=== PATIENT | female | born 1960 ===

== ENCOUNTER 2017-02-15 22:10 | Inpatient (IN) | payer MEDICAID, OTHER ==
[2017-02-15] MEDS ORDERED: Sodium Chloride 0.9% 1,000 ML IV ONE (22:53)
--- NOTE | 2017-02-15 22:53 | C.PDOC ---
History Of Present Illness Patient presents to the ER with a complaint of high blood sugar consistently over 500. Patient was brought in by family and is noncompliant with medication. Denies fever or chills. Time Seen by Provider: 02/15/17 22:53 Chief Complaint (Nursing): High Blood Sugar History Per: Patient History/Exam Limitations: no limitations Onset/Duration Of Symptoms: Hrs Current Symptoms Are (Timing): Still Present Severity: Moderate Pain Scale Rating Of: 4 Current Diabetic Medications: Insulin Causative (Exacerbating) Factor(s): Other (Not known) Associated Infectious Symptoms: denies: Other (Fever, Chills) Treatment Prior To Provider Evaluation: None Recent travel outside of the [place]: No Additional History Per: Family Past Medical History Reviewed: Historical Data, Nursing Documentation, Vital Signs Vital Signs: Last Vital Signs Temp 97.8 F 02/16/17 02:37 Pulse 73 02/16/17 02:37 Resp 20 02/16/17 02:37 BP 177/99 H 02/16/17 02:37 Pulse Ox 99 02/16/17 03:27 - Medical History PMH: HTN, Hypercholesterolemia Surgical History: No Surg Hx Family History: States: No Known Family Hx - Social History Hx Alcohol Use: No Hx Substance Use: No - Immunization History Hx Tetanus Toxoid Vaccination: No Hx Influenza Vaccination: No Hx Pneumococcal Vaccination: No Review Of Systems Constitutional: Negative for: Fever, Chills Eyes: Negative for: Redness ENT: Negative for: Throat Pain Cardiovascular: Negative for: Chest Pain, Palpitations Respiratory: Negative for: Shortness of Breath Gastrointestinal: Negative for: Nausea, Vomiting Genitourinary: Negative for: Dysuria Musculoskeletal: Positive for: Leg Pain Skin: Positive for: Lesions (ulcers left foot). Negative for: Rash Neurological: Negative for: Weakness Psych: Negative for: Anxiety Physical Exam - Physical Exam Appears: Well, Non-toxic Skin: Warm, Dry Head: Normacephalic Eye(s): bilateral: Normal Inspection Oral Mucosa: Moist Neck: Supple Chest: Symmetrical, No Tenderness Cardiovascular: Rhythm Regular, No Murmur Respiratory: No Rales, No Rhonchi, No Wheezing Gastrointestinal/Abdominal: Soft, No Tenderness Back: No CVA Tenderness Extremity: No Tenderness, Other (2x3cm ulcer on plantar area w/ exudates. Abcess on ventral aspect of 4th toe, possible purulent material.) Extremity: Bilateral: No Pedal Edema Neurological/Psych: Oriented x3, Normal Speech, Normal Cognition, Other ( Decreased sensation to feet bilaterally) Gait: With Assistance ED Course And Treatment - Laboratory Results Result Diagrams: 02/15/17 23:30 02/15/17 23:30 O2 Sat by Pulse Oximetry: 99 (Room air) - CT Scan/US CT of left lower extremity Other Rad Studies (CT/US): Read By Radiologist, Radiology Report Reviewed CT/US Interpretation: IMPRESSION: 1. There has been indentation of the left fifth digit at the proximal aspect of the left fifth metatarsal. 2. There are chronic degenerative changes and ulceration involving the distal aspect of the left first. metatarsal. The possibility of chronic osteomyelitis here cannot be excluded. 3. No evidence for osteomyelitis or substantial skin ulceration involving the left fourth digit asclinically questioned. 4. No acute fracture or subluxation identified in the visualized left foot. Progress Note: Blood work and urinalysis ordered. IV fluids administered. Disposition Discussed With DrElmo: Ernesto Hi Comment: accepted the pt on his service and took over the care at 3:32 AM Doctor Will See Patient In The: ED Counseled Patient/Family Regarding: Studies Performed, Diagnosis - Disposition Disposition: HOSPITALIZED Disposition Time: 22:53 Condition: FAIR - POA Present On Arrival: Poor Glycemic Control, Pressure Ulcer - Clinical Impression Clinical Impression: Diabetic complication, Hyperglycemia, Osteomyelitis - Scribe Statement The provider has reviewed the documentation as recorded by the Scribe Keegan Morris All medical record entries made by the Scribe were at my direction and personally dictated by me. I have reviewed the chart and agree that the record accurately reflects my personal performance of the history, physical exam, medical decision making, and the department course for this patient. I have also personally directed, reviewed, and agree with the discharge instructions and disposition. Decision To Admit - Pt Status Changed To: Hospital Disposition Of: Inpatient - Admit Certification Admit to Inpatient:: After my assessment, the patient will require hospitalization for at least two midnights. This is because of the severity of symptoms shown, intensity of services needed, and/or the medical risk in this patient being treated as an outpatient. - InPatient: Physician Admission Certification: I certify that this patient requires 2 or more midnights of care for the following reason:: After my assessment, the patient will require hospitalization for at least two midnights. This is because of the severity of symptoms shown, intensity of services needed, and/or the medical risk in this patient being treated as an outpatient. - . Bed Request Type: Regular Admitting Physician: Ernesto Hi Patient Diagnosis: Diabetic complication, Hyperglycemia, Osteomyelitis
[2017-02-15] MEDS ORDERED: Sodium Chloride 0.9% 1,000 ML ONE (23:00)
[2017-02-15 23:33] LABS: BASO # 0.1 K/uL (0.0-0.2); BASO % 1.3 % (0.0-2.0); EOS # 0.1 K/uL (0.0-0.7); EOS % 1.2 % (0.0-4.0); HEMATOCRIT 40.5 % (34.0-47.0); LYMPH # 2.2 K/uL (1.0-4.3); LYMPH % 28.8 % (20.0-40.0); MEAN CELL VOLUME 87.7 fL (81.0-99.0); MEAN CORPUSCULAR HEMOGLOBIN 29.5 pg (27.0-31.0); MEAN CORPUSCULAR HGB CONC 33.7 g/dL (33.0-37.0); MEAN PLATELET VOLUME 9.7 fL (7.2-11.7); MONO # 0.5 K/uL (0.0-0.8); MONO % 7.2 % (0.0-10.0); NRBC % 0.1 % (0.0-2.0); RED CELL DISTRIBUTION WIDTH 12.6 % (11.5-14.5); WHITE BLOOD COUNT 7.6 K/uL (4.8-10.8)
[2017-02-15 23:41] LABS: CHLORIDE 92 mmol/L (98-107)
[2017-02-15 23:42] LABS: POTASSIUM 5.8 mmol/L (3.6-5.2); SODIUM 127 mmol/L (132-148)
[2017-02-15 23:44] LABS: AST/SGOT 52 U/L (14-36); BILIRUBIN,TOTAL 1.7 mg/dL (0.2-1.3); BLOOD UREA NITROGEN 29 mg/dL (7-17); CARBON DIOXIDE 26 mmol/L (22-30); GFR AFRICAN-AMERICAN 44; TOTAL PROTEIN 8.4 g/dL (6.3-8.3)
[2017-02-15 23:45] LABS: ALKALINE PHOSPHATASE 109 U/L (38-126); ALT/SGPT 11 U/L (9-52)
[2017-02-15 23:46] LABS: GLUCOSE,RANDOM 506 mg/dL (65-105)
[2017-02-16 00:01] LABS: VENOUS BLOOD GAS BASE EXCESS 3.9 mmol/L (0.0-2.0); VENOUS BLOOD GAS PCO2 58 mmHg (40-60); VENOUS BLOOD PH 7.34 (7.32-7.43)
[2017-02-16] MEDS ORDERED: Sodium Chloride 0.9% 1,000 ML IV ONE (00:03)
[2017-02-16] MEDS ORDERED: (Novolin R) Insulin Human Regular 100 units/ml vial IV ONE (00:58)
[2017-02-16] MEDS ORDERED: (Novolin R) Insulin Human Regular 100 units/ml vial ONE ×2 (01:07→07:44)
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
[2017-02-16 05:32] LABS: BASO # 0.1 K/uL (0.0-0.2); BASO % 0.7 % (0.0-2.0); EOS # 0.1 K/uL (0.0-0.7); EOS % 0.9 % (0.0-4.0); HEMATOCRIT 35.5 % (34.0-47.0); LYMPH # 2.4 K/uL (1.0-4.3); LYMPH % 30.9 % (20.0-40.0); MEAN CELL VOLUME 86.4 fL (81.0-99.0); MEAN CORPUSCULAR HEMOGLOBIN 29.1 pg (27.0-31.0); MEAN CORPUSCULAR HGB CONC 33.7 g/dL (33.0-37.0); MEAN PLATELET VOLUME 9.1 fL (7.2-11.7); MONO # 0.5 K/uL (0.0-0.8); MONO % 5.9 % (0.0-10.0); RED CELL DISTRIBUTION WIDTH 12.8 % (11.5-14.5); WHITE BLOOD COUNT 7.8 K/uL (4.8-10.8)
[2017-02-16 05:44] LABS: CHLORIDE 99 mmol/L (98-107); POTASSIUM 3.7 mmol/L (3.6-5.2); SODIUM 131 mmol/L (132-148)
[2017-02-16 05:46] LABS: BILIRUBIN,TOTAL 0.2 mg/dL (0.2-1.3); CARBON DIOXIDE 23 mmol/L (22-30); GFR AFRICAN-AMERICAN 52
[2017-02-16 05:47] LABS: ALB/GLOB RATIO 0.9 (1.0-2.1); ALKALINE PHOSPHATASE 106 U/L (38-126); ALT/SGPT 26 U/L (9-52); AST/SGOT 18 U/L (14-36); BLOOD UREA NITROGEN 22 mg/dL (7-17); CALCIUM 8.3 mg/dl (8.6-10.4); GLUCOSE,RANDOM 296 mg/dL (65-105); PHOSPHOROUS 3.6 mg/dL (2.5-4.5); TOTAL PROTEIN 6.7 g/dL (6.3-8.3)
[2017-02-16 05:48] LABS: MAGNESIUM 1.6 mg/dL (1.6-2.3)
[2017-02-16 05:58] LABS: CHOLESTEROL > 325 mg/dL (0-199)
[2017-02-16 06:07] LABS: T4 7.32 ug/dL (5.5-11.0)
[2017-02-16 06:20] LABS: THYROID STIMULATING HORMONE 1.69 mIU/L (0.46-4.68)
[2017-02-16] MEDS ORDERED: Enalaprilat 2.5 MG/2 ML IV ONE (06:29)
[2017-02-16] MEDS: Piperacill/Tazo 2.25gm in Dex 2.25 GM/50 ML BAG IVPB SCH ×4 (06:29→23:03)
[2017-02-16 07:28] LABS: INR 0.9
[2017-02-16] MEDS ORDERED: (Novolin R) Insulin Human Regular 100 units/ml vial SC SCH (07:30)
[2017-02-16] MEDS: Sodium Chloride 0.9% 1,000 ML IV SCH ×2 (07:46→21:05)
--- NOTE | 2017-02-16 08:24 | CT ---
PROCEDURE: CT HEAD WITHOUT CONTRAST. HISTORY: headache, dizziness, elevated bp COMPARISON: None available. TECHNIQUE: Axial computed tomography images were obtained through the head/brain without intravenous contrast. Radiation dose: Total exam DLP = 902.13 mGy-cm. This CT exam was performed using one or more of the following dose reduction techniques: Automated exposure control, adjustment of the mA and/or kV according to patient size, and/or use of iterative reconstruction technique. FINDINGS: HEMORRHAGE: No intracranial hemorrhage. BRAIN: No mass effect or edema. No atrophy or chronic microvascular ischemic changes. VENTRICLES: Unremarkable. No hydrocephalus. CALVARIUM: Unremarkable. PARANASAL SINUSES: Unremarkable as visualized. No significant inflammatory changes. MASTOID AIR CELLS: Unremarkable as visualized. No inflammatory changes. OTHER FINDINGS: None. IMPRESSION: No evidence of acute intracranial hemorrhage intracranial collection mass effect or midline shift. Preliminary report was submitted by [facility].
[2017-02-16] MEDS ORDERED: (Lantus) Insulin Glargine, Recombinant SC ONE (10:52)
[2017-02-16] MEDS: Pantoprazole 40 mg EC Tab PO SCH (11:23)
[2017-02-16] MEDS: (Novolin R) Insulin Human Regular 100 units/ml vial SC SCH ×3 (13:48→22:00)
--- NOTE | 2017-02-16 13:56 | US ---
PROCEDURE: Ultrasound of the Kidneys HISTORY: HTN, CR 1.5 COMPARISON: None available. TECHNIQUE: Sonogram of the kidneys. FINDINGS: RIGHT KIDNEY: Measures: 5 x 11.5 cm. Normal in size, contour and echogenicity. No stone, solid mass lesion or hydronephrosis visualized. LEFT KIDNEY: Measures: 4.7 x 10.9 cm. Normal in size, contour and echogenicity. No stone, solid mass lesion or hydronephrosis visualized. OTHER FINDINGS: None. IMPRESSION: No significant or acute findings to account for/ related to the clinical presentation.
--- NOTE | 2017-02-16 13:59 | CT ---
PROCEDURE: CT of the left foot without contrast HISTORY: diabetic, foot ulcer, att 4th digit COMPARISON: No prior similar study available for comparison. TECHNIQUE: Axial and reformatted coronal and sagittal CT images of the left foot were obtained without IV contrast administration. 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 There is cortical defect at the medial aspect of the distal 1st metatarsal bone. There are also adjacent periosteal thickening and bone formation suggestive of chronic process. The possibility of acute on chronic osteomyelitis is not totally excluded especially at the distal medial aspect of the 1st metatarsal bone and proximal phalanx. There is plantar ulcer at the distal medial left foot adjacent to the distal 1st metatarsal bone and 1st metatarsal-phalangeal joint. There is also adjacent subcutaneous density and edema. IMPRESSION: Cortical irregularity and periosteal thickening seen at the distal 1st metatarsal bone likely represent chronic osteomyelitis. The possibility of acute on chronic osteomyelitis cannot be totally excluded. Otherwise no evidence of acute osteomyelitis in the left foot. Skin ulceration and subcutaneous density and edema seen at the medial aspect of the distal left foot adjacent to the distal 1st metatarsal bone and 1st toe. Preliminary report was submitted by [facility] P
--- NOTE | 2017-02-16 15:23 | CP.PCM.CON ---
History of Present Illness - History of Present Illness History of Present Illness: Reason for referral: chest pain HPI: 56 F with PMH of HTN, DM, HLD, Hypothyroidism presents to [facility] ED for complaint of elevated glucose, elevated bp and L foot ulcer. Patient stated that she moved to [facility] from [place] 2 months ago. Since then , she has not seen a physician or has taken any medications because she ran out. Patient tried taking daughter's Metformin for glucose control but it has not work. SHe reports that she used to take insulin but no other oral DM medication. Patient states that pain in her L foot has gotten progressively worse over same time frame. She has had multiple surgeries on her L foot due to uncontrolled diabetes and ulcers. She describes pain as 7/10 in severity. She describes the pain as intermittent and throbbing located on plantar surface of left foot without radiation. She denies any exacerbating or alleviating factors. Admits to headache, dizziness/lightheadedness, nausea, cp, weakness, fatigue, weight gain, constipation, melena, numbness/tingling in feet. Denies fever/chills, sob, palpitations, abd pain, vomiting, diarrhea, hematochezia, hematemesis, urinary symptoms, incontinence. Pt described chest pain as midsternal, non-exertional and non -radiating. Review of Systems - Cardiovascular Cardiovascular: Chest Pain - Respiratory Respiratory: absent: Dyspnea on Exertion - Gastrointestinal Gastrointestinal: Abdominal Pain Past Patient History - Past Medical History & Family History Past Medical History?: Yes - Past Social History Smoking Status: Former Smoker - CARDIAC Hx Hypercholesterolemia: Yes Hx Hypertension: Yes - ENDOCRINE/METABOLIC Hx Diabetes Mellitus Type 2: Yes - MUSCULOSKELETAL/RHEUMATOLOGICAL Hx Falls: No - PSYCHIATRIC Hx Substance Use: No - ANESTHESIA Hx Anesthesia: Yes Hx Anesthesia Reactions: No Meds Allergies/Adverse Reactions: Allergies Allergy/AdvReac Type Severity Reaction Status Date / Time No Known Allergies Allergy Unverified 02/15/17 22:41 - Medications Medications: Current Medications Acetaminophen (Tylenol 325mg Tab) 650 mg PO Q6 PRN PRN Reason: Fever >100.4 F Aspirin (Ecotrin) 81 mg PO DAILY [facility] Enalapril Maleate (Vasotec) 10 mg PO DAILY [facility] Last Admin: 02/16/17 11:22 Dose: 10 mg Fenofibrate (Tricor) 48 mg PO QPM [facility] Heparin Sodium (Porcine) (Heparin) 5,000 units SC Q8 [facility] Last Admin: 02/16/17 13:48 Dose: 5,000 units Piperacillin Sod/Tazobactam Sod (Zosyn 2.25 Gm Iv Premix) 2.25 gm in 50 mls @ 100 mls/hr IVPB Q6H [facility] Last Admin: 02/16/17 13:48 Dose: 100 mls/hr Vancomycin HCl 1 gm/ Sodium (Chloride) 250 mls @ 166.7 mls/hr IVPB Q24H [facility] Last Admin: 02/16/17 05:15 Dose: 166.7 mls/hr Sodium Chloride (Sodium Chloride 0.9%) 1,000 mls @ 75 mls/hr IV .[id number] [facility] Last Admin: 02/16/17 07:46 Dose: 75 mls/hr Insulin Human Regular (Novolin R) 0 unit SC ACHS [facility] PRN Reason: Protocol Last Admin: 02/16/17 13:48 Dose: 8 unit Levothyroxine Sodium (Synthroid) 25 mcg PO DAILY@0630 [facility] Metoprolol Tartrate (Lopressor) 50 mg PO BID [facility] Ondansetron HCl (Zofran Inj) 4 mg IVP Q6 PRN PRN Reason: Nausea/Vomiting Pantoprazole Sodium (Protonix Ec Tab) 40 mg PO DAILY [facility] Last Admin: 02/16/17 11:23 Dose: 40 mg Rosuvastatin Calcium (Crestor) 10 mg PO [facility] Physical Exam - Constitutional Appears: Non-toxic - Head Exam Head Exam: NORMAL INSPECTION - Eye Exam Eye Exam: absent: Scleral icterus - ENT Exam ENT Exam: Mucous Membranes Moist - Neck Exam Neck exam: Positive for: Full Rom. Negative for: Lymphadenopathy - Respiratory Exam Respiratory Exam: Decreased Breath Sounds, NORMAL BREATHING PATTERN - Cardiovascular Exam Cardiovascular Exam: REGULAR RHYTHM - GI/Abdominal Exam GI & Abdominal Exam: Soft. absent: Tenderness - Extremities Exam Extremities exam: Negative for: pedal edema Results - Vital Signs Recent Vital Signs: Last Vital Signs Temp 98.3 F 02/16/17 07:26 Pulse 99 H 02/16/17 07:26 Resp 18 02/16/17 09:00 BP 151/84 H 02/16/17 11:22 Pulse Ox 97 02/16/17 07:26 - Labs Result Diagrams: 02/19/17 06:25 02/19/17 06:25 Labs: Laboratory Results - last 24 hr 02/16/17 02/16/17 02/16/17 05:27 05:27 05:27 WBC 7.8 RBC 4.11 Hgb 12.0 Hct 35.5 MCV 86.4 MCH 29.1 MCHC 33.7 RDW 12.8 Plt Count 174 MPV 9.1 Neut % (Auto) 61.6 Lymph % (Auto) 30.9 [place] % (Auto) 5.9 Eos % (Auto) 0.9 Baso % (Auto) 0.7 Neut # 4.8 Lymph # 2.4 [place] # 0.5 Eos # 0.1 Baso # 0.1 PT INR APTT Sodium 131 L Potassium 3.7 Chloride 99 Carbon Dioxide 23 Anion Gap 13 BUN 22 H Creatinine 1.3 H Est GFR ( Amer) 52 Est GFR (Non-Af Amer) 43 POC Glucose (mg/dL) Random Glucose 296 H Hemoglobin A1c 14.1 H Calcium 8.3 L Phosphorus 3.6 Magnesium 1.6 Total Bilirubin 0.2 AST 18 ALT 26 Alkaline Phosphatase 106 Total Creatine Kinase CK-MB (Mass) Troponin I, Quant Total Protein 6.7 Albumin 3.1 L D Globulin 3.6 Albumin/Globulin Ratio 0.9 L Triglycerides > 525 H Cholesterol > 325 H LDL Cholesterol Direct 171 H HDL Cholesterol 37 Thyroxine (T4) 7.32 TSH 3rd Generation 1.69 02/16/17 02/16/17 02/16/17 07:05 07:23 09:22 WBC RBC Hgb Hct MCV MCH MCHC RDW Plt Count MPV Neut % (Auto) Lymph % (Auto) [place] % (Auto) Eos % (Auto) Baso % (Auto) Neut # Lymph # [place] # Eos # Baso # PT 9.6 L INR 0.9 APTT 26 Sodium Potassium Chloride Carbon Dioxide Anion Gap BUN Creatinine Est GFR ( Amer) Est GFR (Non-Af Amer) POC Glucose (mg/dL) 291 H 321 H Random Glucose Hemoglobin A1c Calcium Phosphorus Magnesium Total Bilirubin AST ALT Alkaline Phosphatase Total Creatine Kinase CK-MB (Mass) Troponin I, Quant Total Protein Albumin Globulin Albumin/Globulin Ratio Triglycerides Cholesterol LDL Cholesterol Direct HDL Cholesterol Thyroxine (T4) TSH 3rd Generation 02/16/17 02/16/17 11:47 12:16 WBC RBC Hgb Hct MCV MCH MCHC RDW Plt Count MPV Neut % (Auto) Lymph % (Auto) [place] % (Auto) Eos % (Auto) Baso % (Auto) Neut # Lymph # [place] # Eos # Baso # PT INR APTT Sodium Potassium Chloride Carbon Dioxide Anion Gap BUN Creatinine Est GFR ( Amer) Est GFR (Non-Af Amer) POC Glucose (mg/dL) 365 H Random Glucose Hemoglobin A1c Calcium Phosphorus Magnesium Total Bilirubin AST ALT Alkaline Phosphatase Total Creatine Kinase 113 CK-MB (Mass) 1.47 Troponin I, Quant 0.0120 Total Protein Albumin Globulin Albumin/Globulin Ratio Triglycerides Cholesterol LDL Cholesterol Direct HDL Cholesterol Thyroxine (T4) TSH 3rd Generation Assessment & Plan - Assessment and Plan (Free Text) Assessment: ACS Plan: Trops q6hrs x 3 ECHO If trops negative for ME, we'll schedule for Lexiscan If trops positive for ME, we'll schedule for cath.
--- NOTE | 2017-02-16 15:24 | CP.PCM.CON ---
History of Present Illness - History of Present Illness History of Present Illness: Podiatry consult note- Dr. Means 56 year old female with PMHx of HTN, DMII, hyperlipidemia, bilateral motor nerve damage, with multiple left lower extremity surgeries including partial fifth ray amputation done in [place]. Patient admitted to the hospital for elevated blood glucose and hypertension. Patient seen and evaluated at bedside in the ICU accompanied by family members. Patient denies pain to the extremity due to neuropathy. She denies n/v/f/c/sob at this time. Patient has left foot plantar ulceration submet 1 which she states has been present for several years. She has blistering with mild fluctuance present to the fourth digit as well. Patient reports multiple episodes of cellulitis/abscess to the foot which have required surgery. Past Patient History - Past Medical History & Family History Past Medical History?: Yes - Past Social History Smoking Status: Former Smoker - CARDIAC Hx Hypercholesterolemia: Yes Hx Hypertension: Yes - ENDOCRINE/METABOLIC Hx Diabetes Mellitus Type 2: Yes - MUSCULOSKELETAL/RHEUMATOLOGICAL Hx Falls: No - PSYCHIATRIC Hx Substance Use: No - ANESTHESIA Hx Anesthesia: Yes Hx Anesthesia Reactions: No Meds Allergies/Adverse Reactions: Allergies Allergy/AdvReac Type Severity Reaction Status Date / Time No Known Allergies Allergy Unverified 02/15/17 22:41 - Medications Medications: Current Medications Acetaminophen (Tylenol 325mg Tab) 650 mg PO Q6 PRN PRN Reason: Fever >100.4 F Aspirin (Ecotrin) 81 mg PO DAILY [facility] Enalapril Maleate (Vasotec) 10 mg PO DAILY [facility] Last Admin: 02/16/17 11:22 Dose: 10 mg Fenofibrate (Tricor) 48 mg PO QPM [facility] Heparin Sodium (Porcine) (Heparin) 5,000 units SC Q8 [facility] Last Admin: 02/16/17 13:48 Dose: 5,000 units Piperacillin Sod/Tazobactam Sod (Zosyn 2.25 Gm Iv Premix) 2.25 gm in 50 mls @ 100 mls/hr IVPB Q6H [facility] Last Admin: 02/16/17 13:48 Dose: 100 mls/hr Vancomycin HCl 1 gm/ Sodium (Chloride) 250 mls @ 166.7 mls/hr IVPB Q24H [facility] Last Admin: 02/16/17 05:15 Dose: 166.7 mls/hr Sodium Chloride (Sodium Chloride 0.9%) 1,000 mls @ 75 mls/hr IV .[id number] [facility] Last Admin: 02/16/17 07:46 Dose: 75 mls/hr Insulin Human Regular (Novolin R) 0 unit SC ACHS [facility] PRN Reason: Protocol Last Admin: 02/16/17 13:48 Dose: 8 unit Levothyroxine Sodium (Synthroid) 25 mcg PO DAILY@0630 [facility] Metoprolol Tartrate (Lopressor) 50 mg PO BID [facility] Ondansetron HCl (Zofran Inj) 4 mg IVP Q6 PRN PRN Reason: Nausea/Vomiting Pantoprazole Sodium (Protonix Ec Tab) 40 mg PO DAILY [facility] Last Admin: 02/16/17 11:23 Dose: 40 mg Rosuvastatin Calcium (Crestor) 10 mg PO HS [facility] Physical Exam - Constitutional Appears: Well, Non-toxic, No Acute Distress - Neurological Exam Neurological exam: Oriented x3 - Psychiatric Exam Psychiatric exam: Normal Affect, Normal Mood - Additional Findings Additional findings: DERMATOLOGIC: Left foot hyperkeratotic ulceration submet 1, no drainage, fibrous wund base, negative drainage, negative erythema, negative purulence. Left foot fourth digit with mildly fluctuant blistering dorsally, no active drainage present, mild erythema, no streaking. Surrounding skin is intact. VASCULAR: DP/PT pulses 2/4, [employer]<3 seconds, skin temperature is normal. There is localized edema to the left foot fourth digit. NEUROLOGIC: Protective sensation absent ORTHOPEDIC: Negative pain on palpation to the left lower extremity. 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 CT of left foot: Possible acute on chronic OM of the distal first metatarsal Results - Vital Signs Recent Vital Signs: Last Vital Signs Temp 98.3 F 02/16/17 07:26 Pulse 99 H 02/16/17 07:26 Resp 18 02/16/17 09:00 BP 151/84 H 02/16/17 11:22 Pulse Ox 97 02/16/17 07:26 - Labs Result Diagrams: 02/16/17 05:27 02/16/17 05:27 Labs: Laboratory Results - last 24 hr 02/16/17 02/16/17 02/16/17 05:27 05:27 05:27 WBC 7.8 RBC 4.11 Hgb 12.0 Hct 35.5 MCV 86.4 MCH 29.1 MCHC 33.7 RDW 12.8 Plt Count 174 MPV 9.1 Neut % (Auto) 61.6 Lymph % (Auto) 30.9 [place] % (Auto) 5.9 Eos % (Auto) 0.9 Baso % (Auto) 0.7 Neut # 4.8 Lymph # 2.4 [place] # 0.5 Eos # 0.1 Baso # 0.1 PT INR APTT Sodium 131 L Potassium 3.7 Chloride 99 Carbon Dioxide 23 Anion Gap 13 BUN 22 H Creatinine 1.3 H Est GFR ( Amer) 52 Est GFR (Non-Af Amer) 43 POC Glucose (mg/dL) Random Glucose 296 H Hemoglobin A1c 14.1 H Calcium 8.3 L Phosphorus 3.6 Magnesium 1.6 Total Bilirubin 0.2 AST 18 ALT 26 Alkaline Phosphatase 106 Total Creatine Kinase CK-MB (Mass) Troponin I, Quant Total Protein 6.7 Albumin 3.1 L D Globulin 3.6 Albumin/Globulin Ratio 0.9 L Triglycerides > 525 H Cholesterol > 325 H LDL Cholesterol Direct 171 H HDL Cholesterol 37 Thyroxine (T4) 7.32 TSH 3rd Generation 1.69 02/16/17 02/16/17 02/16/17 07:05 07:23 09:22 WBC RBC Hgb Hct MCV MCH MCHC RDW Plt Count MPV Neut % (Auto) Lymph % (Auto) [place] % (Auto) Eos % (Auto) Baso % (Auto) Neut # Lymph # [place] # Eos # Baso # PT 9.6 L INR 0.9 APTT 26 Sodium Potassium Chloride Carbon Dioxide Anion Gap BUN Creatinine Est GFR ( Amer) Est GFR (Non-Af Amer) POC Glucose (mg/dL) 291 H 321 H Random Glucose Hemoglobin A1c Calcium Phosphorus Magnesium Total Bilirubin AST ALT Alkaline Phosphatase Total Creatine Kinase CK-MB (Mass) Troponin I, Quant Total Protein Albumin Globulin Albumin/Globulin Ratio Triglycerides Cholesterol LDL Cholesterol Direct HDL Cholesterol Thyroxine (T4) TSH 3rd Generation 02/16/17 02/16/17 11:47 12:16 WBC RBC Hgb Hct MCV MCH MCHC RDW Plt Count MPV Neut % (Auto) Lymph % (Auto) [place] % (Auto) Eos % (Auto) Baso % (Auto) Neut # Lymph # [place] # Eos # Baso # PT INR APTT Sodium Potassium Chloride Carbon Dioxide Anion Gap BUN Creatinine Est GFR ( Amer) Est GFR (Non-Af Amer) POC Glucose (mg/dL) 365 H Random Glucose Hemoglobin A1c Calcium Phosphorus Magnesium Total Bilirubin AST ALT Alkaline Phosphatase Total Creatine Kinase 113 CK-MB (Mass) 1.47 Troponin I, Quant 0.0120 Total Protein Albumin Globulin Albumin/Globulin Ratio Triglycerides Cholesterol LDL Cholesterol Direct HDL Cholesterol Thyroxine (T4) TSH 3rd Generation Assessment & Plan - Assessment and Plan (Free Text) Assessment: 56 year old female with left foot chronic diabetic ulceration and blistering of the fourth digits Plan: Patient seen and evaluated, d/w attending Dr. Means Patients left foot dressed with betadin, DSD CT scan shows possible acute on chronic OM of the left distal first metatarsal IV abx in progress- Mari Wound culture pending Podiatry will continue to follow
--- NOTE | 2017-02-16 20:38 | CP.PCM.PN ---
<Tra Lugo - Last Filed: 02/16/17 20:35> Subjective - Date & Time of Evaluation Date of Evaluation: 02/16/17 Time of Evaluation: 08:15 - Subjective Subjective: Dr. Lugo PGY 1 Hospitalist Note The patient was seen this morning and examined at bedside. She is complaining of her stage 3 decubitus ulcer of the left foot. She states that the ulcer developed approximately 5-6 months ago. In addition, the patient has left foot plantar ulceration and blistering with mild fluctuance of the 4th digit. The patient is worried about her left foot ulcer and states that it has gotten worse since she came to [facility] 2 months ago. The patient denies pain to the extremity due to numbness from diabetic neuropathy. She states that she has had multiple infectious episodes for which have required multiple foot surgeries. Furthermore, the patient complained of chest pain when she was admitted. Now, the pain is reproducible on palpation. She also reports abdominal pain with palpation of the chest wall. She also reports that she has been having a lot of difficulty with bowel movements. She states that she has to strain a lot and experiences pain associated with straining. She reports bloating and thinks she may possibly have hemorrhoids. She reports headache, fatigue, chest pain, abdominal pain, constipation, and numbness/tingling in LEs. She denies fever/ chills, palpitations, shortness of breath, vomiting, diarrhea, hematochezia, hematemesis, urinary frequency, dysuria, and incontinence. Objective - Vital Signs/Intake and Output Vital Signs (last 24 hours): Temp Pulse Resp BP Pulse Ox 97.2 F L 96 H 18 161/78 H 100 02/16/17 20:00 02/16/17 20:00 02/16/17 20:00 02/16/17 20:00 02/16/17 20:00 Intake and Output: 02/16/17 02/17/17 18:59 06:59 Intake Total 2200 Output Total 802 Balance 1398 - Medications Medications: Current Medications Acetaminophen (Tylenol 325mg Tab) 650 mg PO Q6 PRN PRN Reason: Fever >100.4 F Aspirin (Ecotrin) 81 mg PO DAILY [facility] Enalapril Maleate (Vasotec) 10 mg PO DAILY [facility] Last Admin: 02/16/17 11:22 Dose: 10 mg Fenofibrate (Tricor) 48 mg PO QPM [facility] Last Admin: 02/16/17 18:55 Dose: 48 mg Heparin Sodium (Porcine) (Heparin) 5,000 units SC Q8 [facility] Last Admin: 02/16/17 13:48 Dose: 5,000 units Piperacillin Sod/Tazobactam Sod (Zosyn 2.25 Gm Iv Premix) 2.25 gm in 50 mls @ 100 mls/hr IVPB Q6H [facility] Last Admin: 02/16/17 18:25 Dose: 100 mls/hr Vancomycin HCl 1 gm/ Sodium (Chloride) 250 mls @ 166.7 mls/hr IVPB Q24H [facility] Last Admin: 02/16/17 05:15 Dose: 166.7 mls/hr Sodium Chloride (Sodium Chloride 0.9%) 1,000 mls @ 75 mls/hr IV .[id number] [facility] Last Admin: 02/16/17 07:46 Dose: 75 mls/hr Insulin Human Regular (Novolin R) 0 unit SC ACHS [facility] PRN Reason: Protocol Last Admin: 02/16/17 18:24 Dose: 10 unit Levothyroxine Sodium (Synthroid) 25 mcg PO DAILY@0630 [facility] Metoprolol Tartrate (Lopressor) 50 mg PO BID [facility] Last Admin: 02/16/17 18:25 Dose: 50 mg Ondansetron HCl (Zofran Inj) 4 mg IVP Q6 PRN PRN Reason: Nausea/Vomiting Pantoprazole Sodium (Protonix Ec Tab) 40 mg PO DAILY [facility] Last Admin: 02/16/17 11:23 Dose: 40 mg Rosuvastatin Calcium (Crestor) 10 mg PO HS [facility] - Labs Labs: 02/16/17 05:27 02/16/17 05:27 PT 9.6 SECONDS (9.7-12.2) L 02/16/17 07:05 INR 0.9 02/16/17 07:05 APTT 26 SECONDS (21-34) 02/16/17 07:05 - Constitutional Appears: Non-toxic, No Acute Distress - Head Exam Head Exam: ATRAUMATIC, NORMOCEPHALIC - Eye Exam Eye Exam: EOMI, Normal appearance, PERRL Pupil Exam: NORMAL ACCOMODATION - ENT Exam ENT Exam: Mucous Membranes Moist - Neck Exam Neck Exam: Normal Inspection. absent: Tenderness - Respiratory Exam Respiratory Exam: Clear to Ausculation Bilateral, NORMAL BREATHING PATTERN. absent: Rales, Rhonchi, Wheezes - Cardiovascular Exam Cardiovascular Exam: REGULAR RHYTHM, +S1, +S2 - GI/Abdominal Exam GI & Abdominal Exam: Soft, Normal Bowel Sounds. absent: Tenderness - Extremities Exam Extremities Exam: absent: Normal Inspection (nontender ulceration on left foot and missing pinky toe) - Neurological Exam Neurological Exam: Alert, Awake, CN II-XII Intact, Oriented x3 - Psychiatric Exam Psychiatric exam: Normal Affect, Normal Mood - Skin Skin Exam: Dry, Normal Color, Warm. absent: Intact (wound on left foot) Assessment and Plan - Assessment and Plan (Free Text) Plan: Chest pain Negative cardiac markers Total CK: 113 CK-MB: 1.47 Troponin I: 0.0120 Monitor EKGs for acute changes f/u repeat cardiac enzymes Continue metoprolol 50 mg po bid Continue aspirin 81 mg po daily Continue enalapril 10 mg po daily Osteomyelitis Continue IV vancomycin and zosyn Podiatry evaluated left LE, dressed with betadine, reccomended continuing vancomycin + zosyn, wound cultures pending, podiatry will monitor the patient No leukocytosis, afebrile CT LE: osteomyelitis suspected [see full report] ID consult, Dr. Groves, help appreciated Headache Blood pressure was controlled this morning CT head: negative [see full report] Diabetes mellitus type 2 Increase units of ISS as blood sugar is nearing 300s Continue accuchecks Monitor Hypertension Continue enalapril 10 mg po daily Continue metoprolol 50 mg po bid Vasotect 10 mg PO daily (home med) Monitor Hyperlipidemia Continue crestor 10 mg po hs Continue fenofibrate 48 mg po hs Hypothyroidism Continue synthroid 25 mc po daily (home med) Prophylactic measures Protonix 40 mg po daily Heparin 5000 u sc q8h Zofran 4 mg IVP q6h prn Tylenol 650 mg po q6h prn Assessment and plan discussed with attending physician. <Anne Marie Cantu V - Last Filed: 02/17/17 08:32> Objective - Vital Signs/Intake and Output Vital Signs (last 24 hours): Temp Pulse Resp BP Pulse Ox 98.3 F 84 14 126/84 100 02/17/17 04:00 02/17/17 07:40 02/17/17 07:40 02/17/17 04:37 02/17/17 07:40 Intake and Output: 02/17/17 02/17/17 06:59 18:59 Intake Total 3420 50 Output Total 1102 400 Balance 2318 -350 - Medications Medications: Current Medications Acetaminophen (Tylenol 325mg Tab) 650 mg PO Q6 PRN PRN Reason: Fever >100.4 F Last Admin: 02/17/17 01:25 Dose: 650 mg Aspirin (Ecotrin) 81 mg PO DAILY [facility] Enalapril Maleate (Vasotec) 10 mg PO DAILY [facility] Last Admin: 02/16/17 11:22 Dose: 10 mg Fenofibrate (Tricor) 48 mg PO QPM [facility] Last Admin: 02/16/17 18:55 Dose: 48 mg Gabapentin (Neurontin) 300 mg PO TID [facility] Heparin Sodium (Porcine) (Heparin) 5,000 units SC Q8 [facility] Last Admin: 02/17/17 05:31 Dose: 5,000 units Piperacillin Sod/Tazobactam Sod (Zosyn 2.25 Gm Iv Premix) 2.25 gm in 50 mls @ 100 mls/hr IVPB Q6H [facility] Last Admin: 02/17/17 05:52 Dose: 100 mls/hr Vancomycin HCl 1 gm/ Sodium (Chloride) 250 mls @ 166.7 mls/hr IVPB Q24H [facility] Last Admin: 02/17/17 05:29 Dose: 166.7 mls/hr Sodium Chloride (Sodium Chloride 0.9%) 1,000 mls @ 75 mls/hr IV .[id number] [facility] Last Admin: 02/17/17 01:14 Dose: 75 mls/hr Insulin Human Regular (Novolin R) 0 unit SC ACHS [facility] PRN Reason: Protocol Last Admin: 02/16/17 22:00 Dose: Not Given Levothyroxine Sodium (Synthroid) 25 mcg PO DAILY@0630 [facility] Last Admin: 02/17/17 05:32 Dose: 25 mcg Metoprolol Tartrate (Lopressor) 50 mg PO BID [facility] Last Admin: 02/16/17 18:25 Dose: 50 mg Ondansetron HCl (Zofran Inj) 4 mg IVP Q6 PRN PRN Reason: Nausea/Vomiting Pantoprazole Sodium (Protonix Ec Tab) 40 mg PO DAILY [facility] Last Admin: 02/16/17 11:23 Dose: 40 mg Rosuvastatin Calcium (Crestor) 10 mg PO HS [facility] Last Admin: 02/16/17 22:00 Dose: 10 mg - Labs Labs: 02/17/17 07:29 02/17/17 06:31 PT 11.2 SECONDS (9.7-12.2) 02/17/17 06:31 INR 1.0 02/17/17 06:31 APTT 32 SECONDS (21-34) D 02/17/17 06:31 Attending/Attestation - Attestation I have personally seen and examined this patient.: Yes I have fully participated in the care of the patient.: Yes I have reviewed all pertinent clinical information, including history, physical exam and plan: Yes Notes (Text): This is late computer entry for 02/16/17. Patient seen, examined and case discussed with day-time resident. Patient seen in the Emergency Room in the morning, awaiting telemetry bed. Patient reports she has not been taking her medications for her chronic conditions including diabetes, lipid disorder, and hypertension, patient has recently came from [place] about 2 months ago, and thought that since she could not get insurance and therefore could not get her medications. Patient reports prior history of diabetic foot ulcer, which she was told in [place] which was inoperable. Patient's blood pressure in the ED improved from SBP: 180 to 120s and chest pain has improved. Discussed with podiatry (Dr. Gideon Means)-->Will come see the patient. Cardiology evaluation in progress Infectious disease evaluation in progress. patient is on IV antibiotics for diabetic foot ulcer, no observed erythema nor cellulitic changes observed Assessment/Plan 1) Chest pain Negative cardiac markers Total CK: 113 CK-MB: 1.47 Troponin I: 0.0120 Cardiology (Dr. Garcia) on the case-->help appreciated Monitor EKGs for acute changes f/u repeat cardiac enzymes Continue metoprolol 50 mg po bid Continue aspirin 81 mg po daily Continue enalapril 10 mg po daily 2) Osteomyelitis Continue IV vancomycin and zosyn Podiatry evaluated left LE, dressed with betadine, reccomended continuing vancomycin + zosyn, wound cultures pending, podiatry will monitor the patient No leukocytosis, afebrile CT LE: osteomyelitis suspected [see full report] ID consult, Dr. Groves, help appreciated Podiatry, Dr. Gideon Means, help appreciated 3) Headache Blood pressure was controlled this morning CT head: negative [see full report] Improved and resolved 4) Diabetes mellitus type 2 History of noncompliance Increase units of ISS as blood sugar is nearing 300s Continue accuchecks Monitor Likely uncontrolled diabetes [employer] referral 5) Hypertension History of noncompliance Continue enalapril 10 mg po daily Continue metoprolol 50 mg po bid Monitor 6) Hyperlipidemia Continue crestor 10 mg po hs Continue fenofibrate 48 mg po hs 7) Hypothyroidism Continue synthroid 25 mc po daily (home med) 8) Prophylactic measures Protonix 40 mg po daily Heparin 5000 u sc q8h Zofran 4 mg IVP q6h prn Tylenol 650 mg po q6h prn
--- NOTE | 2017-02-16 22:48 | CP.PCM.CON ---
History of Present Illness - History of Present Illness History of Present Illness: dictated Past Patient History - Past Medical History & Family History Past Medical History?: Yes - Past Social History Smoking Status: Former Smoker - CARDIAC Hx Hypercholesterolemia: Yes Hx Hypertension: Yes - ENDOCRINE/METABOLIC Hx Diabetes Mellitus Type 2: Yes - MUSCULOSKELETAL/RHEUMATOLOGICAL Hx Falls: No - PSYCHIATRIC Hx Substance Use: No - ANESTHESIA Hx Anesthesia: Yes Hx Anesthesia Reactions: No Meds Allergies/Adverse Reactions: Allergies Allergy/AdvReac Type Severity Reaction Status Date / Time No Known Allergies Allergy Unverified 02/15/17 22:41 - Medications Medications: Current Medications Acetaminophen (Tylenol 325mg Tab) 650 mg PO Q6 PRN PRN Reason: Fever >100.4 F Aspirin (Ecotrin) 81 mg PO DAILY [facility] Enalapril Maleate (Vasotec) 10 mg PO DAILY [facility] Last Admin: 02/16/17 11:22 Dose: 10 mg Fenofibrate (Tricor) 48 mg PO QPM [facility] Last Admin: 02/16/17 18:55 Dose: 48 mg Heparin Sodium (Porcine) (Heparin) 5,000 units SC Q8 [facility] Last Admin: 02/16/17 13:48 Dose: 5,000 units Piperacillin Sod/Tazobactam Sod (Zosyn 2.25 Gm Iv Premix) 2.25 gm in 50 mls @ 100 mls/hr IVPB Q6H [facility] Last Admin: 02/16/17 18:25 Dose: 100 mls/hr Vancomycin HCl 1 gm/ Sodium (Chloride) 250 mls @ 166.7 mls/hr IVPB Q24H [facility] Last Admin: 02/16/17 05:15 Dose: 166.7 mls/hr Sodium Chloride (Sodium Chloride 0.9%) 1,000 mls @ 75 mls/hr IV .[id number] [facility] Last Admin: 02/16/17 07:46 Dose: 75 mls/hr Insulin Human Regular (Novolin R) 0 unit SC ACHS [facility] PRN Reason: Protocol Last Admin: 02/16/17 18:24 Dose: 10 unit Levothyroxine Sodium (Synthroid) 25 mcg PO DAILY@0630 [facility] Metoprolol Tartrate (Lopressor) 50 mg PO BID [facility] Last Admin: 02/16/17 18:25 Dose: 50 mg Ondansetron HCl (Zofran Inj) 4 mg IVP Q6 PRN PRN Reason: Nausea/Vomiting Pantoprazole Sodium (Protonix Ec Tab) 40 mg PO DAILY [facility] Last Admin: 02/16/17 11:23 Dose: 40 mg Rosuvastatin Calcium (Crestor) 10 mg PO [facility] Results - Vital Signs Recent Vital Signs: Last Vital Signs Temp 97.2 F L 02/16/17 20:00 Pulse 96 H 02/16/17 20:00 Resp 18 02/16/17 20:00 BP 161/78 H 02/16/17 20:00 Pulse Ox 100 02/16/17 20:00 - Labs Result Diagrams: 02/16/17 05:27 02/16/17 05:27 Labs: Laboratory Results - last 24 hr 02/16/17 02/16/17 02/16/17 05:27 05:27 05:27 WBC 7.8 RBC 4.11 Hgb 12.0 Hct 35.5 MCV 86.4 MCH 29.1 MCHC 33.7 RDW 12.8 Plt Count 174 MPV 9.1 Neut % (Auto) 61.6 Lymph % (Auto) 30.9 [place] % (Auto) 5.9 Eos % (Auto) 0.9 Baso % (Auto) 0.7 Neut # 4.8 Lymph # 2.4 [place] # 0.5 Eos # 0.1 Baso # 0.1 PT INR APTT Sodium 131 L Potassium 3.7 Chloride 99 Carbon Dioxide 23 Anion Gap 13 BUN 22 H Creatinine 1.3 H Est GFR ( Amer) 52 Est GFR (Non-Af Amer) 43 POC Glucose (mg/dL) Random Glucose 296 H Hemoglobin A1c 14.1 H Calcium 8.3 L Phosphorus 3.6 Magnesium 1.6 Total Bilirubin 0.2 AST 18 ALT 26 Alkaline Phosphatase 106 Total Creatine Kinase CK-MB (Mass) Troponin I Troponin I, Quant Total Protein 6.7 Albumin 3.1 L D Globulin 3.6 Albumin/Globulin Ratio 0.9 L Triglycerides > 525 H Cholesterol > 325 H LDL Cholesterol Direct 171 H HDL Cholesterol 37 Thyroxine (T4) 7.32 TSH 3rd Generation 1.69 02/16/17 02/16/17 02/16/17 07:05 07:23 09:22 WBC RBC Hgb Hct MCV MCH MCHC RDW Plt Count MPV Neut % (Auto) Lymph % (Auto) [place] % (Auto) Eos % (Auto) Baso % (Auto) Neut # Lymph # [place] # Eos # Baso # PT 9.6 L INR 0.9 APTT 26 Sodium Potassium Chloride Carbon Dioxide Anion Gap BUN Creatinine Est GFR ( Amer) Est GFR (Non-Af Amer) POC Glucose (mg/dL) 291 H 321 H Random Glucose Hemoglobin A1c Calcium Phosphorus Magnesium Total Bilirubin AST ALT Alkaline Phosphatase Total Creatine Kinase CK-MB (Mass) Troponin I Troponin I, Quant Total Protein Albumin Globulin Albumin/Globulin Ratio Triglycerides Cholesterol LDL Cholesterol Direct HDL Cholesterol Thyroxine (T4) TSH 3rd Generation 02/16/17 02/16/17 02/16/17 11:47 12:16 16:50 WBC RBC Hgb Hct MCV MCH MCHC RDW Plt Count MPV Neut % (Auto) Lymph % (Auto) [place] % (Auto) Eos % (Auto) Baso % (Auto) Neut # Lymph # [place] # Eos # Baso # PT INR APTT Sodium Potassium Chloride Carbon Dioxide Anion Gap BUN Creatinine Est GFR ( Amer) Est GFR (Non-Af Amer) POC Glucose (mg/dL) 365 H 386 H Random Glucose Hemoglobin A1c Calcium Phosphorus Magnesium Total Bilirubin AST ALT Alkaline Phosphatase Total Creatine Kinase 113 CK-MB (Mass) 1.47 Troponin I Troponin I, Quant 0.0120 Total Protein Albumin Globulin Albumin/Globulin Ratio Triglycerides Cholesterol LDL Cholesterol Direct HDL Cholesterol Thyroxine (T4) TSH 3rd Generation 02/16/17 02/16/17 19:19 21:37 WBC RBC Hgb Hct MCV MCH MCHC RDW Plt Count MPV Neut % (Auto) Lymph % (Auto) [place] % (Auto) Eos % (Auto) Baso % (Auto) Neut # Lymph # [place] # Eos # Baso # PT INR APTT Sodium Potassium Chloride Carbon Dioxide Anion Gap BUN Creatinine Est GFR ( Amer) Est GFR (Non-Af Amer) POC Glucose (mg/dL) 299 H Random Glucose Hemoglobin A1c Calcium Phosphorus Magnesium Total Bilirubin AST ALT Alkaline Phosphatase Total Creatine Kinase CK-MB (Mass) Troponin I < 0.0120 Troponin I, Quant Total Protein Albumin Globulin Albumin/Globulin Ratio Triglycerides Cholesterol LDL Cholesterol Direct HDL Cholesterol Thyroxine (T4) TSH 3rd Generation
[2017-02-17] MEDS: Sodium Chloride 0.9% 1,000 ML IV SCH (01:14)
--- NOTE | 2017-02-17 03:10 | CP.PCM.PN ---
<Toshia Franco - Last Filed: 02/17/17 05:07> Subjective - Date & Time of Evaluation Date of Evaluation: 02/17/17 Time of Evaluation: 05:07 - Subjective Subjective: PGY1 Medicine note for Dr. Cantu Patient seen and examined at bedside. Patient was asleep and had to be awoken for exam. Denied any fever, chills, chest pain, SOB, abd pain, bowel/bladder complains. Left foot pain is controlled with meds. Family at bedside was asleep on the floor. Objective - Vital Signs/Intake and Output Vital Signs (last 24 hours): Temp Pulse Resp BP Pulse Ox 98.8 F 87 17 142/75 99 02/17/17 00:00 02/17/17 00:00 02/17/17 00:00 02/17/17 00:00 02/17/17 00:00 Intake and Output: 02/16/17 02/17/17 18:59 06:59 Intake Total 2770 Output Total 802 Balance 1968 - Medications Medications: Current Medications Acetaminophen (Tylenol 325mg Tab) 650 mg PO Q6 PRN PRN Reason: Fever >100.4 F Last Admin: 02/17/17 01:25 Dose: 650 mg Aspirin (Ecotrin) 81 mg PO DAILY [facility] Enalapril Maleate (Vasotec) 10 mg PO DAILY [facility] Last Admin: 02/16/17 11:22 Dose: 10 mg Fenofibrate (Tricor) 48 mg PO QPM [facility] Last Admin: 02/16/17 18:55 Dose: 48 mg Heparin Sodium (Porcine) (Heparin) 5,000 units SC Q8 [facility] Last Admin: 02/16/17 22:00 Dose: 5,000 units Piperacillin Sod/Tazobactam Sod (Zosyn 2.25 Gm Iv Premix) 2.25 gm in 50 mls @ 100 mls/hr IVPB Q6H [facility] Last Admin: 02/16/17 23:03 Dose: 100 mls/hr Vancomycin HCl 1 gm/ Sodium (Chloride) 250 mls @ 166.7 mls/hr IVPB Q24H [facility] Last Admin: 02/16/17 05:15 Dose: 166.7 mls/hr Sodium Chloride (Sodium Chloride 0.9%) 1,000 mls @ 75 mls/hr IV .[id number] [facility] Last Admin: 02/17/17 01:14 Dose: 75 mls/hr Insulin Human Regular (Novolin R) 0 unit SC ACHS [facility] PRN Reason: Protocol Last Admin: 02/16/17 22:00 Dose: Not Given Levothyroxine Sodium (Synthroid) 25 mcg PO DAILY@0630 [facility] Metoprolol Tartrate (Lopressor) 50 mg PO BID [facility] Last Admin: 02/16/17 18:25 Dose: 50 mg Ondansetron HCl (Zofran Inj) 4 mg IVP Q6 PRN PRN Reason: Nausea/Vomiting Pantoprazole Sodium (Protonix Ec Tab) 40 mg PO DAILY [facility] Last Admin: 02/16/17 11:23 Dose: 40 mg Rosuvastatin Calcium (Crestor) 10 mg PO HS [facility] Last Admin: 02/16/17 22:00 Dose: 10 mg - Labs Labs: 02/16/17 05:27 02/16/17 05:27 PT 9.6 SECONDS (9.7-12.2) L 02/16/17 07:05 INR 0.9 02/16/17 07:05 APTT 26 SECONDS (21-34) 02/16/17 07:05 - Constitutional Appears: Non-toxic, No Acute Distress - Eye Exam Eye Exam: Normal appearance - ENT Exam ENT Exam: Mucous Membranes Moist - Neck Exam Neck Exam: Normal Inspection - Respiratory Exam Respiratory Exam: Clear to Ausculation Bilateral, NORMAL BREATHING PATTERN. absent: Accessory Muscle Use, Rales, Rhonchi, Wheezes, Respiratory Distress - Cardiovascular Exam Cardiovascular Exam: REGULAR RHYTHM, +S1, +S2 - GI/Abdominal Exam GI & Abdominal Exam: Soft, Normal Bowel Sounds. absent: Tenderness - Extremities Exam Additional comments: ulceration on left foot and missing 5th metatarsal - Neurological Exam Neurological Exam: Alert, Awake, Oriented x3 - Psychiatric Exam Psychiatric exam: Normal Affect, Normal Mood - Skin Skin Exam: Dry, Normal Color, Warm Assessment and Plan - Assessment and Plan (Free Text) Plan: Chest pain Negative cardiac markers Total CK: 113 CK-MB: 1.47 Troponin I: 0.0120 Monitor EKGs for acute changes Continue metoprolol 50 mg po bid Continue aspirin 81 mg po daily Continue enalapril 10 mg po daily Osteomyelitis Continue IV vancomycin and zosyn Podiatry evaluated left LE, dressed with betadine, reccomended continuing vancomycin + zosyn, wound cultures pending, podiatry will monitor the patient No leukocytosis, afebrile CT LE: osteomyelitis suspected [see full report] ID consult, Dr. Groves, help appreciated Headache Blood pressure was controlled this morning CT head: negative [see full report] Diabetes mellitus type 2 Increase units of ISS as blood sugar is nearing 300s Continue accuchecks Monitor Hypertension Continue enalapril 10 mg po daily Continue metoprolol 50 mg po bid Vasotect 10 mg PO daily (home med) Monitor Hyperlipidemia Continue crestor 10 mg po hs Continue fenofibrate 48 mg po hs Hypothyroidism Continue synthroid 25 mc po daily (home med) Prophylactic measures Protonix 40 mg po daily Heparin 5000 u sc q8h Zofran 4 mg IVP q6h prn Tylenol 650 mg po q6h prn <Anne Marie Cantu V - Last Filed: 02/17/17 08:57> Objective - Vital Signs/Intake and Output Vital Signs (last 24 hours): Temp Pulse Resp BP Pulse Ox 98.3 F 84 14 126/84 100 02/17/17 04:00 02/17/17 07:40 02/17/17 07:40 02/17/17 04:37 02/17/17 07:40 Intake and Output: 02/17/17 02/17/17 06:59 18:59 Intake Total 3420 50 Output Total 1102 400 Balance 2318 -350 - Medications Medications: Current Medications Acetaminophen (Tylenol 325mg Tab) 650 mg PO Q6 PRN PRN Reason: Fever >100.4 F Last Admin: 02/17/17 01:25 Dose: 650 mg Aspirin (Ecotrin) 81 mg PO DAILY [facility] Enalapril Maleate (Vasotec) 10 mg PO DAILY [facility] Last Admin: 02/16/17 11:22 Dose: 10 mg Fenofibrate (Tricor) 48 mg PO QPM [facility] Last Admin: 02/16/17 18:55 Dose: 48 mg Gabapentin (Neurontin) 300 mg PO TID [facility] Heparin Sodium (Porcine) (Heparin) 5,000 units SC Q8 [facility] Last Admin: 02/17/17 05:31 Dose: 5,000 units Piperacillin Sod/Tazobactam Sod (Zosyn 2.25 Gm Iv Premix) 2.25 gm in 50 mls @ 100 mls/hr IVPB Q6H [facility] Last Admin: 02/17/17 05:52 Dose: 100 mls/hr Vancomycin HCl 1 gm/ Sodium (Chloride) 250 mls @ 166.7 mls/hr IVPB Q24H [facility] Last Admin: 02/17/17 05:29 Dose: 166.7 mls/hr Sodium Chloride (Sodium Chloride 0.9%) 1,000 mls @ 75 mls/hr IV .[id number] [facility] Last Admin: 02/17/17 01:14 Dose: 75 mls/hr Insulin Human Regular (Novolin R) 0 unit SC ACHS [facility] PRN Reason: Protocol Last Admin: 02/16/17 22:00 Dose: Not Given Levothyroxine Sodium (Synthroid) 25 mcg PO DAILY@0630 [facility] Last Admin: 02/17/17 05:32 Dose: 25 mcg Metoprolol Tartrate (Lopressor) 50 mg PO BID [facility] Last Admin: 02/16/17 18:25 Dose: 50 mg Ondansetron HCl (Zofran Inj) 4 mg IVP Q6 PRN PRN Reason: Nausea/Vomiting Pantoprazole Sodium (Protonix Ec Tab) 40 mg PO DAILY [facility] Last Admin: 02/16/17 11:23 Dose: 40 mg Rosuvastatin Calcium (Crestor) 10 mg PO HS [facility] Last Admin: 02/16/17 22:00 Dose: 10 mg - Labs Labs: 02/17/17 07:29 02/17/17 06:31 PT 11.2 SECONDS (9.7-12.2) 02/17/17 06:31 INR 1.0 02/17/17 06:31 APTT 32 SECONDS (21-34) D 02/17/17 06:31 Attending/Attestation - Attestation I have personally seen and examined this patient.: Yes I have fully participated in the care of the patient.: Yes I have reviewed all pertinent clinical information, including history, physical exam and plan: Yes Notes (Text): Patient seen, examined, and case discussed with day-time resident. Patient seen with daughter at bedside. Patient report she is feeling better. Denies headache, denies chest pain, denies palpitations, denies abdominal pain, denies nausea, denies vomitting, denies constipation, denies diarrhea, denies BPBPR, reports decreased sensation in the lower extremities but reports this is not new for her. Patient's left foot wrapped in Curly wrapping, no observed pus/no drainage/no blood-->Podiatry to eval again per patient. Patient is ordered for echocardiogram given history of hypertension, diabetes, and complaint of chest pain. Patient is currently on IV Antibiotics for acute on chronic osteomyelitis. Electrolytes imbalances-->repleted Pending MRI Assessment/Plan 1) Chest pain * Cardiology (Dr. Garcia) on the case-->help appreciated * Asymptomatic this morning * ASIA X 3 negative * Pending echocardiogram * Order for EKG this morning * Blood pressure controlled * Continue metoprolol 50 mg po bid * Continue aspirin 81 mg po daily * Continue enalapril 10 mg po daily * Crestor 10mg PO qHS 2) Acute on Chronic Osteomyelitis * ID consult, Dr. Groves, help appreciated * Podiatry, Dr. Gideon Means, help appreciated * Continue IV vancomycin and zosyn * Podiatry evaluated left LE, dressed with betadine, reccomended continuing vancomycin + zosyn, wound cultures pending, podiatry will monitor the patient * No leukocytosis, afebrile * CT LE (02/16/17): cortical irregularity and periosteal thickening seen at the distal 1st metatarsal bone likely represent chronic ostemoelytis. No evidence of acute osteomyelitis in the left foot. Skin ulceration and subcutaneous density and edea seen at the medial aspect of the distal left foot adjacent to the distal 1 st metatarsal bone and 1st toe. * Pending MRI of left lower extremity * Zosyn 3.375 IV Q 6 hours (active since 02/16/17) * Vancomcyin 1 gram IV Q12 hours (Active since 02/16/17)--->Vanco trough * Florastor 250mg PO bid 3) Headache * Denies * Blood pressure was controlled this morning * CT head: negative [see full report] * Likely due to uncontrolled hypertension 4) Diabetes mellitus type 2 * History of noncompliance * Increase units of ISS as blood sugar is nearing 300s * Continue accuchecks QAC and HS * Likely uncontrolled diabetes * [facility] referral * Endocrinology (Dr. Shafer) consult for further recommendations for diabetes management * Start Lantus 20 units subq HS * Start Gabapentin 300mg PO tid for neuropathic symptoms secondary to uncontrolled diabetes * Crestor 10mg PO qHS * a1c: 14.1 5) Hypertension * History of noncompliance * Continue enalapril 10 mg po daily * Continue metoprolol 50 mg po bid * Monitor * Controlled 6) Hyperlipidemia * Continue crestor 10 mg po hs * Continue fenofibrate 48 mg po hs * LDL:171, Cholestrol >325, TG: >525, HDL: 35 7) Hypothyroidism * Continue synthroid 25 mc po daily (home med) * TSH within normal limits 8) Electrolyte imbalances * Replete K+ in maintenance fluids, one K rider and KCl * Ordered for Mg2+ * and repeat BMP and Mg2+ at 4PM * Repeat Ca2+ to see if true-->will supplement with calcium carbonate 9) Prophylactic measures * Protonix 40 mg po daily * Heparin 5000 u sc q8h * Zofran 4 mg IVP q6h prn * Tylenol 650 mg po q6h prn
[2017-02-17] MEDS: Levothyroxine 25 MCG TAB PO SCH (05:32)
[2017-02-17] MEDS: Piperacill/Tazo 2.25gm in Dex 2.25 GM/50 ML BAG IVPB SCH (05:52)
[2017-02-17 06:52] LABS: CHLORIDE 115 mmol/L (98-107); POTASSIUM 2.6 mmol/L (3.6-5.2); SODIUM 137 mmol/L (132-148)
[2017-02-17 06:54] LABS: BILIRUBIN,TOTAL 0.5 mg/dL (0.2-1.3); GFR AFRICAN-AMERICAN > 60
[2017-02-17 06:55] LABS: ALB/GLOB RATIO 0.7 (1.0-2.1); ALKALINE PHOSPHATASE 52 U/L (38-126); ALT/SGPT 22 U/L (9-52); AST/SGOT 10 U/L (14-36); BLOOD UREA NITROGEN 13 mg/dL (7-17); CARBON DIOXIDE 17 mmol/L (22-30); GLUCOSE,RANDOM 170 mg/dL (65-105); TOTAL PROTEIN 3.8 g/dL (6.3-8.3)
[2017-02-17 06:59] LABS: CALCIUM 5.4 mg/dl (8.6-10.4)
[2017-02-17 07:51] LABS: BASO # 0.1 K/uL (0.0-0.2); BASO % 0.9 % (0.0-2.0); EOS # 0.1 K/uL (0.0-0.7); EOS % 1.5 % (0.0-4.0); HEMATOCRIT 40.5 % (34.0-47.0); LYMPH # 2.8 K/uL (1.0-4.3); LYMPH % 36.9 % (20.0-40.0); MEAN CELL VOLUME 87.3 fL (81.0-99.0); MEAN CORPUSCULAR HEMOGLOBIN 29.2 pg (27.0-31.0); MEAN CORPUSCULAR HGB CONC 33.4 g/dL (33.0-37.0); MEAN PLATELET VOLUME 9.8 fL (7.2-11.7); MONO # 0.4 K/uL (0.0-0.8); MONO % 5.1 % (0.0-10.0); RED CELL DISTRIBUTION WIDTH 12.6 % (11.5-14.5); WHITE BLOOD COUNT 7.5 K/uL (4.8-10.8)
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
[2017-02-17 09:02] LABS: MAGNESIUM 1.3 mg/dL (1.6-2.3)
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
[2017-02-17] MEDS ORDERED: Potassium Chloride 20 mEq ER Tab PO ONE (09:30)
[2017-02-17] MEDS: Pantoprazole 40 mg EC Tab PO SCH (09:53)
[2017-02-17] MEDS: (Novolin R) Insulin Human Regular 100 units/ml vial SC SCH ×2 (09:54→12:26)
[2017-02-17] MEDS: Saccharomyces Boulardi 250 mg Cap PO SCH ×2 (09:54→18:22)
[2017-02-17] MEDS: Vancomycin 1 gm/NS 200 ml 1 GM/200 ML BAG IVPB SCH ×2 (12:25→21:09)
[2017-02-17] MEDS: Potassium Chloride 20 MEQ in Sodium Chloride 0.45% 1,000 ML IV SCH ×2 (12:25→21:31)
[2017-02-17] MEDS: Piperacill/Tazo 3.375gm in Dex 3.375 GM/50 ML BAG IVPB SCH ×3 (12:28→23:49)
--- NOTE | 2017-02-17 16:37 | MRI ---
PROCEDURE: MRI of the left foot without contrast. HISTORY: left foot ulceration and 4th digit abscess COMPARISON: Comparison is made to the previous x-ray and CT dated 02/16/2017 TECHNIQUE: Axial coronal and sagittal MRI images of the left foot were obtained without IV contrast administration. FINDINGS: There is no evidence of significant bone marrow edema or cortical destruction in the left foot to suggest acute osteomyelitis. There are moderate arthritic degenerative changes seen at the left foot. Cortical defect seen at the medial aspect of the distal 1st metatarsal bone without evidence of significant bone marrow edema. Foci of mild bone marrow edema seen at the distal 1st and 2nd toe proximal phalanx adjacent to the interphalangeal joint likely due to arthritic changes. No evidence of significant joint effusion. Heterogeneous soft tissue signal in seen without evidence of discrete fluid collection. Skin and subcutaneous defect seen at the plantar aspect of the distal left foot medially at the level of the 1st tarsal metatarsal joint. The patient status post amputation at of the mid and distal 5th metatarsal bone and 5th toe. IMPRESSION: No definite MRI evidence of acute osteomyelitis. Heterogeneous increased signal in the soft tissue without evidence of discrete fluid collection or drainable abscess. Moderate degenerative and arthritic changes.
[2017-02-17] MEDS: (Novolog) Insulin Aspart, Recombinant 100 u/ml 10 ml vial SC SCH ×3 (18:23→21:30)
--- NOTE | 2017-02-17 19:14 | CARD ---
APPROVED REPORT EXAM: Two-dimensional and M-mode echocardiogram with Doppler and color Doppler. Other Information Quality : GoodRhythm : INDICATION Chest Pain RISK FACTORS Diabetes M-Mode DIMENSIONS Left Atrium (MM)4.13 (2.5-4.0cm)IVSd1.21 (0.7-1.1cm) Aortic Root2.95 (2.2-3.7cm)LVDd4.86 (4.0-5.6cm) Aortic Cusp Exc.1.62 (1.5-2.0cm)PWd1.21 (0.7-1.1cm) FS (%) 26 %LVDs3.61 (2.0-3.8cm) LVEF (%)50 (>50%) Mitral Valve MV E Cgmdjkyg042.4cm/sMV A Bsaribxd41.0cm/sE/A ratio1.1 TDI E/Lateral E'0.0E/Medial E'0.0 Tricuspid Valve TR Peak [id number]/sTR Peak Gr.[id number] LEFT VENTRICLE The left ventricle is normal size. There is mild concentric left ventricular hypertrophy. The left ventricular function is normal. The left ventricular ejection fraction is within the normal range. About 60%. No regional wall motion abnormalities noted. The left ventricular diastolic function is indeterminate No left ventricle thrombus noted on this study. There is no ventricular septal defect visualized. There is no left ventricular aneurysm. There is no mass noted in the left ventricle. RIGHT VENTRICLE The right ventricle is normal size. There is normal right ventricular wall thickness. The right ventricular systolic function is normal. ATRIA The left atrium size is normal. The right atrium size is normal. The interatrial septum is intact with no evidence for an atrial septal defect. AORTIC VALVE The aortic valve is normal in structure and function. No aortic regurgitation is present. There is no aortic valvular stenosis. There is no aortic valvular vegetation. MITRAL VALVE The mitral valve is normal in structure and function. There is no evidence of mitral valve prolapse. There is no mitral valve stenosis. There is no mitral valve regurgitation noted. TRICUSPID VALVE The tricuspid valve is normal in structure and function. There is mild tricuspid valve regurgitation noted. There is no tricuspid valve prolapse or vegetation. There is no tricuspid valve stenosis. PULMONIC VALVE The pulmonary valve is normal in structure and function. There is no pulmonic valvular regurgitation. There is no pulmonic valvular stenosis. GREAT VESSELS The aortic root is normal in size. The ascending aorta is normal in size. The pulmonary artery is normal. The IVC is normal in size and collapses >50% with inspiration. PERICARDIAL EFFUSION The pericardium appears normal. There is no pleural effusion.
[2017-02-17] MEDS: Fluconazole IV 100mg/50 ml NS 50 ML IVPB SCH (21:18)
[2017-02-17] MEDS ORDERED: (Lantus) Insulin Glargine, Recombinant SC SCH (22:00)
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
[2017-02-17 23:17] LABS: POTASSIUM 4.3 mmol/L (3.6-5.2)
[2017-02-17 23:19] LABS: BILIRUBIN,TOTAL 0.5 mg/dL (0.2-1.3)
[2017-02-17 23:20] LABS: ALB/GLOB RATIO 0.9 (1.0-2.1); PHOSPHOROUS 3.3 mg/dL (2.5-4.5); TOTAL PROTEIN 5.9 g/dL (6.3-8.3)
[2017-02-17 23:21] LABS: MAGNESIUM 1.8 mg/dL (1.6-2.3)
[2017-02-18] MEDS: Piperacill/Tazo 3.375gm in Dex 3.375 GM/50 ML BAG IVPB SCH ×2 (04:02→13:00)
[2017-02-18] MEDS: Potassium Chloride 20 MEQ in Sodium Chloride 0.45% 1,000 ML IV SCH ×2 (04:04→13:00)
--- NOTE | 2017-02-18 04:41 | CP.PCM.PN ---
Addendum entered and electronically signed by Toshia Franco 02/18/17 04:44: repeat CMP, Mg, and Phos was WNL after electrolyte repletion Original Note: <Toshia Franco - Last Filed: 02/18/17 04:39> Subjective - Date & Time of Evaluation Date of Evaluation: 02/18/17 Time of Evaluation: 04:39 - Subjective Subjective: PGY1 Medicine note for Dr. Cantu Patient seen and examined at bedside. Patient denied fever, chills, chest pain, SOB, abd pain, bowel/bladder complains. Left foot pain is controlled with meds. Family at bedside was asleep on the floor. Objective - Vital Signs/Intake and Output Vital Signs (last 24 hours): Temp Pulse Resp BP Pulse Ox 98 F 73 14 100/60 95 02/18/17 04:00 02/18/17 01:00 02/18/17 01:00 02/18/17 00:37 02/18/17 01:00 Intake and Output: 02/17/17 02/18/17 18:59 06:59 Intake Total 50 Output Total 400 Balance -350 - Medications Medications: Current Medications Acetaminophen (Tylenol 325mg Tab) 650 mg PO Q6 PRN PRN Reason: Fever >100.4 F Last Admin: 02/17/17 01:25 Dose: 650 mg Aspirin (Ecotrin) 81 mg PO DAILY [facility] Last Admin: 02/17/17 09:53 Dose: 81 mg Calcium Carbonate (Oscal) 500 mg PO DAILY [facility] Last Admin: 02/17/17 12:26 Dose: 500 mg Enalapril Maleate (Vasotec) 10 mg PO DAILY [facility] Last Admin: 02/17/17 09:53 Dose: 10 mg Fenofibrate (Tricor) 48 mg PO QPM [facility] Last Admin: 02/17/17 18:22 Dose: 48 mg Gabapentin (Neurontin) 300 mg PO TID [facility] Last Admin: 02/17/17 18:22 Dose: 300 mg Heparin Sodium (Porcine) (Heparin) 5,000 units SC Q8 [facility] Last Admin: 02/17/17 21:09 Dose: 5,000 units Potassium Chloride 20 meq/ (Sodium Chloride) 1,010 mls @ 75 mls/hr IV .[id number] [facility] Last Admin: 02/18/17 04:04 Dose: 75 mls/hr Vancomycin/Sodium Chloride (Vancocin) 1 gm in 200 mls @ 133.333 mls/hr IVPB Q12H [facility] Last Admin: 02/17/17 21:09 Dose: 133.333 mls/hr Piperacillin Sod/Tazobactam Sod (Zosyn 3.375 Gm Iv Premix) 3.375 gm in 50 mls @ 100 mls/hr IVPB Q6H [facility] Last Admin: 02/18/17 04:02 Dose: 100 mls/hr Fluconazole (Diflucan Iv 100 Mg/50 Ml Ns) 50 mls @ 100 mls/hr IVPB Q24H [facility] Last Admin: 02/17/17 21:18 Dose: 100 mls/hr Insulin Aspart (Novolog) 6 unit SC AC [facility] Last Admin: 02/17/17 18:23 Dose: 6 unit Insulin Aspart (Novolog) 0 unit SC ACHS [facility] PRN Reason: Protocol Last Admin: 02/17/17 21:30 Dose: Not Given Insulin Glargine (Lantus) 20 unit SC [facility] Last Admin: 02/17/17 21:08 Dose: 20 units Levothyroxine Sodium (Synthroid) 25 mcg PO DAILY@0630 [facility] Last Admin: 02/17/17 05:32 Dose: 25 mcg Metoprolol Tartrate (Lopressor) 50 mg PO BID [facility] Last Admin: 02/17/17 18:22 Dose: 50 mg Ondansetron HCl (Zofran Inj) 4 mg IVP Q6 PRN PRN Reason: Nausea/Vomiting Pantoprazole Sodium (Protonix Ec Tab) 40 mg PO DAILY [facility] Last Admin: 02/17/17 09:53 Dose: 40 mg Rosuvastatin Calcium (Crestor) 10 mg PO [facility] Last Admin: 02/17/17 21:09 Dose: 10 mg Saccharomyces Boulardii (Florastor) 250 mg PO BID [facility] Last Admin: 02/17/17 18:22 Dose: 250 mg - Labs Labs: 02/17/17 07:29 02/17/17 22:15 PT 11.2 SECONDS (9.7-12.2) 02/17/17 06:31 INR 1.0 02/17/17 06:31 APTT 32 SECONDS (21-34) D 02/17/17 06:31 - Constitutional Appears: Non-toxic, No Acute Distress - Head Exam Head Exam: NORMAL INSPECTION - Eye Exam Eye Exam: Normal appearance - ENT Exam ENT Exam: Mucous Membranes Moist - Respiratory Exam Respiratory Exam: Clear to Ausculation Bilateral, NORMAL BREATHING PATTERN. absent: Accessory Muscle Use, Rales, Rhonchi, Wheezes, Respiratory Distress - Cardiovascular Exam Cardiovascular Exam: REGULAR RHYTHM, +S1, +S2 - GI/Abdominal Exam GI & Abdominal Exam: Soft, Normal Bowel Sounds. absent: Tenderness - Extremities Exam Additional comments: ulceration on left foot and missing 5th metatarsal Left foot wrapped in Curly wrapping, no observed pus/no drainage/no blood- - Neurological Exam Neurological Exam: Alert, Awake, Oriented x3 - Psychiatric Exam Psychiatric exam: Normal Affect, Normal Mood - Skin Skin Exam: Dry, Normal Color, Warm Assessment and Plan - Assessment and Plan (Free Text) Plan: Chest pain Negative cardiac markers Total CK: 113 CK-MB: 1.47 Troponin I: 0.0120 Monitor EKGs for acute changes Continue metoprolol 50 mg po bid Continue aspirin 81 mg po daily Continue enalapril 10 mg po daily Osteomyelitis Continue IV vancomycin and zosyn LE MRI: no definite MRI evidence of acute osteomyelitis; heterogeneous increased signal in the soft tissue without evidence of discrete fluid collection/drainable abscess. Moderate degenerative and arthritic changes. Podiatry evaluated left LE, dressed with betadine, reccomended continuing vancomycin + zosyn, wound cultures pending, podiatry will monitor the patient No leukocytosis, afebrile CT LE: osteomyelitis suspected [see full report] ID consult, Dr. Groves, help appreciated Headache Blood pressure was controlled this morning CT head: negative [see full report] Diabetes mellitus type 2 Increase units of ISS as blood sugar is nearing 300s Continue accuchecks Monitor Hypertension Continue enalapril 10 mg po daily Continue metoprolol 50 mg po bid Vasotect 10 mg PO daily (home med) Monitor Hyperlipidemia Continue crestor 10 mg po hs Continue fenofibrate 48 mg po hs Hypothyroidism Continue synthroid 25 mc po daily (home med) Prophylactic measures Protonix 40 mg po daily Heparin 5000 u sc q8h Zofran 4 mg IVP q6h prn Tylenol 650 mg po q6h prn <Anne Marie Cantu V - Last Filed: 02/18/17 12:28> Objective - Vital Signs/Intake and Output Vital Signs (last 24 hours): Temp Pulse Resp BP Pulse Ox 98.2 F 76 13 177/72 H 100 02/18/17 08:00 02/18/17 09:00 02/18/17 09:00 02/18/17 09:10 02/18/17 09:00 Intake and Output: 02/18/17 02/18/17 06:59 18:59 Intake Total 1440 Balance 1440 - Medications Medications: Current Medications Acetaminophen (Tylenol 325mg Tab) 650 mg PO Q6 PRN PRN Reason: Fever >100.4 F Last Admin: 02/17/17 01:25 Dose: 650 mg Aspirin (Ecotrin) 81 mg PO DAILY [facility] Last Admin: 02/18/17 09:09 Dose: 81 mg Calcium Carbonate (Oscal) 500 mg PO DAILY [facility] Last Admin: 02/18/17 09:10 Dose: 500 mg Enalapril Maleate (Vasotec) 10 mg PO DAILY [facility] Last Admin: 02/18/17 09:10 Dose: 10 mg Fenofibrate (Tricor) 48 mg PO QPM [facility] Last Admin: 02/17/17 18:22 Dose: 48 mg Gabapentin (Neurontin) 300 mg PO TID [facility] Last Admin: 02/18/17 10:10 Dose: 300 mg Heparin Sodium (Porcine) (Heparin) 5,000 units SC Q8 [facility] Last Admin: 02/18/17 06:40 Dose: 5,000 units Vancomycin/Sodium Chloride (Vancocin) 1 gm in 200 mls @ 133.333 mls/hr IVPB Q12H [facility] Last Admin: 02/17/17 21:09 Dose: 133.333 mls/hr Fluconazole (Diflucan Iv 100 Mg/50 Ml Ns) 50 mls @ 100 mls/hr IVPB Q24H [facility] Last Admin: 02/17/17 21:18 Dose: 100 mls/hr Piperacillin Sod/Tazobactam Sod (Zosyn 2.25 Gm Iv Premix) 2.25 gm in 50 mls @ 100 mls/hr IVPB Q8H [facility] Sodium Chloride (Sodium Chloride 0.9%) 1,000 mls @ 100 mls/hr IV .Q10H [facility] Insulin Aspart (Novolog) 0 unit SC ACHS [facility] PRN Reason: Protocol Last Admin: 05/14/17 07:37 Dose: Not Given Insulin Aspart (Novolog) 10 unit SC AC [facility] Insulin Glargine (Lantus) 26 unit SC HS [facility] Levothyroxine Sodium (Synthroid) 25 mcg PO DAILY@0630 [facility] Last Admin: 02/18/17 05:33 Dose: 25 mcg Metoprolol Tartrate (Lopressor) 50 mg PO BID [facility] Last Admin: 02/18/17 09:10 Dose: 50 mg Ondansetron HCl (Zofran Inj) 4 mg IVP Q6 PRN PRN Reason: Nausea/Vomiting Pantoprazole Sodium (Protonix Ec Tab) 40 mg PO DAILY [facility] Last Admin: 02/18/17 09:10 Dose: 40 mg Rosuvastatin Calcium (Crestor) 10 mg PO [facility] Last Admin: 02/17/17 21:09 Dose: 10 mg Saccharomyces Boulardii (Florastor) 250 mg PO BID [facility] Last Admin: 02/18/17 09:10 Dose: 250 mg - Labs Labs: 02/18/17 06:20 02/18/17 06:18 PT 11.2 SECONDS (9.7-12.2) 02/17/17 06:31 INR 1.0 02/17/17 06:31 APTT 32 SECONDS (21-34) D 02/17/17 06:31 Attending/Attestation - Attestation I have personally seen and examined this patient.: Yes I have fully participated in the care of the patient.: Yes I have reviewed all pertinent clinical information, including history, physical exam and plan: Yes Notes (Text): Patient seen, examined, and case discussed with day-time resident. Patient seen with daughter at bedside. Patient report she is feeling better. Patient reporting mild swelling over the right hand from prior IV site, and mild swelling over b/l lower extremities, non -pitting with associated itchiness. Denies headache, denies chest pain, denies palpitations, denies abdominal pain, denies nausea, denies vomitting, denies constipation, denies diarrhea, denies BPBPR, reports decreased sensation in the lower extremities but reports this is not new for her. Patient's left foot wrapped in Curly wrapping, no observed pus/no drainage/no blood-->Podiatry to eval again per patient. Held Vancomycin in light of vancomycin trough, and acute renal in suffiency, changed to renally dose Zosyn Started on IV hydration Echocardiogram within normal limits MRI LL: no definite evidence of acute ostemyelitis. Heterogenous increased signal in soft tissue without evidence of discrete fluid collection or drainable abscess. Moderate degenerative and arthritis changes. Assessment/Plan 1) Chest pain * Cardiology (Dr. Garcia) on the case-->help appreciated * Asymptomatic this morning * ASIA X 3 negative * Echocardiogram (02/17/17): within normal * NSR on telemetry monitoring * Order for EKG this morning * Continue metoprolol 50 mg po bid * Continue aspirin 81 mg po daily * Continue enalapril 10 mg po daily * Crestor 10mg PO qHS * Will need an outpatient stress test per cardio note. 2) Diabetic Foot Ulcer * Suspicion for Osteomyelitis * ID consult, Dr. Groves, help appreciated * Podiatry, Dr. Gideon Means, help appreciated * Continue IV vancomycin and zosyn * Podiatry evaluated left LE, dressed with betadine, reccomended continuing vancomycin + zosyn, wound cultures pending, podiatry will monitor the patient * No leukocytosis, afebrile * CT LE (02/16/17): cortical irregularity and periosteal thickening seen at the distal 1st metatarsal bone likely represent chronic ostemoelytis. No evidence of acute osteomyelitis in the left foot. Skin ulceration and subcutaneous density and edea seen at the medial aspect of the distal left foot adjacent to the distal 1 st metatarsal bone and 1st toe. * MRI LE: no definite evidence of acute osteomyelitis. Heterogenous increased signal in soft tissue without evidence of discrete fluid or drainable abscess. Moderate degenerative and arthritis changes. * Changed to Zosyn 2.25 IV Q 8 hours (active since 02/16/17) in light of acute renal insufficiency * Stopped Vancomcyin in light of vancomycin trough and acute renal insufficiency * Florastor 250mg PO bid 3) Headache * Denies * Blood pressure was controlled this morning * CT head: negative [see full report] * Likely due to uncontrolled hypertension 4) Diabetes mellitus type 2 * History of noncompliance * Increase units of ISS as blood sugar is nearing 300s * Continue accuchecks QAC and HS * Likely uncontrolled diabetes * Plant Taxonomist referral * Endocrinology (Dr. Shafer) consult for further recommendations for diabetes management * Start Lantus 20 units subq HS * Start Gabapentin 300mg PO tid for neuropathic symptoms secondary to uncontrolled diabetes * Crestor 10mg PO qHS * a1c: 14.1 5) Hypertension * History of noncompliance * Continue enalapril 10 mg po daily * Continue metoprolol 50 mg po bid * Monitor * Controlled 6) Hyperlipidemia * Continue crestor 10 mg po hs * Continue fenofibrate 48 mg po hs * LDL:171, Cholestrol >325, TG: >525, HDL: 35 7) Hypothyroidism * Continue synthroid 25 mc po daily (home med) * TSH within normal limits 8) Electrolyte imbalances * Replete K+ in maintenance fluids, one K rider and KCl * Ordered for Mg2+ * and repeat BMP and Mg2+ at 4PM * Repeat Ca2+ to see if true-->will supplement with calcium carbonate 9) Acute Renal insufficiency * Stopped vancomycin in light of vancomycin trough and elevated Cr * Changed to renal dose of Zosyn * Ordered for random vancomycin level for tomorrow * NS 100cc/hr * Monitor BUN/Cr * Renal US (02/16/17): No significant or acute findings to account for/related to the clinical presentation. 9) Prophylactic measures * Pepcid 20mg PO daily * Change to Lovenox 30mg subq daily * Zofran 4 mg IVP q6h prn * Tylenol 650 mg po q6h pr
[2017-02-18] MEDS: Levothyroxine 25 MCG TAB PO SCH (05:33)
[2017-02-18 06:25] LABS: BASO # 0.1 K/uL (0.0-0.2); BASO % 0.8 % (0.0-2.0); EOS # 0.1 K/uL (0.0-0.7); HEMATOCRIT 34.2 % (34.0-47.0); LYMPH # 2.5 K/uL (1.0-4.3); LYMPH % 40.1 % (20.0-40.0); MEAN CELL VOLUME 86.9 fL (81.0-99.0); MEAN CORPUSCULAR HEMOGLOBIN 28.9 pg (27.0-31.0); MEAN CORPUSCULAR HGB CONC 33.2 g/dL (33.0-37.0); MEAN PLATELET VOLUME 9.3 fL (7.2-11.7); MONO # 0.4 K/uL (0.0-0.8); MONO % 6.4 % (0.0-10.0); RED CELL DISTRIBUTION WIDTH 12.8 % (11.5-14.5); WHITE BLOOD COUNT 6.2 K/uL (4.8-10.8)
[2017-02-18 06:37] LABS: POTASSIUM 4.3 mmol/L (3.6-5.2)
[2017-02-18 06:39] LABS: BILIRUBIN,TOTAL 0.5 mg/dL (0.2-1.3)
[2017-02-18 06:40] LABS: ALB/GLOB RATIO 0.9 (1.0-2.1); PHOSPHOROUS 3.8 mg/dL (2.5-4.5); TOTAL PROTEIN 5.7 g/dL (6.3-8.3)
[2017-02-18 06:41] LABS: CALCIUM 8.1 mg/dl (8.6-10.4); MAGNESIUM 1.8 mg/dL (1.6-2.3)
[2017-02-18] MEDS: (Novolog) Insulin Aspart, Recombinant 100 u/ml 10 ml vial SC SCH ×7 (07:36→21:44)
[2017-02-18] MEDS: Pantoprazole 40 mg EC Tab PO SCH (09:10)
[2017-02-18] MEDS: Saccharomyces Boulardi 250 mg Cap PO SCH ×2 (09:10→17:52)
--- NOTE | 2017-02-18 10:34 | CP.PCM.PN ---
Subjective - Date & Time of Evaluation Date of Evaluation: 02/18/17 Time of Evaluation: 10:15 - Subjective Subjective: 56 year old diabetic female with bilateral motor nerve damage, seen and evaluated at bedside with family members present. In-demand Translation Service used to communicate in patient's la posta Estonian. Patient denies pain to the extremity due to neuropathy. Pt reports no acute overnight events. She denies n/ v/f/c/sob at this time. Objective - Vital Signs/Intake and Output Vital Signs (last 24 hours): Temp Pulse Resp BP Pulse Ox 98.2 F 76 13 177/72 H 100 02/18/17 08:00 02/18/17 09:00 02/18/17 09:00 02/18/17 09:10 02/18/17 09:00 Intake and Output: 02/18/17 02/18/17 06:59 18:59 Intake Total 1440 Balance 1440 - Medications Medications: Current Medications Acetaminophen (Tylenol 325mg Tab) 650 mg PO Q6 PRN PRN Reason: Fever >100.4 F Last Admin: 02/17/17 01:25 Dose: 650 mg Aspirin (Ecotrin) 81 mg PO DAILY [facility] Last Admin: 02/18/17 09:09 Dose: 81 mg Calcium Carbonate (Oscal) 500 mg PO DAILY [facility] Last Admin: 02/18/17 09:10 Dose: 500 mg Enalapril Maleate (Vasotec) 10 mg PO DAILY [facility] Last Admin: 02/18/17 09:10 Dose: 10 mg Fenofibrate (Tricor) 48 mg PO QPM [facility] Last Admin: 02/17/17 18:22 Dose: 48 mg Gabapentin (Neurontin) 300 mg PO TID [facility] Last Admin: 02/18/17 10:10 Dose: 300 mg Heparin Sodium (Porcine) (Heparin) 5,000 units SC Q8 [facility] Last Admin: 02/18/17 06:40 Dose: 5,000 units Potassium Chloride 20 meq/ (Sodium Chloride) 1,010 mls @ 75 mls/hr IV .[id number] [facility] Last Admin: 02/18/17 04:04 Dose: 75 mls/hr Vancomycin/Sodium Chloride (Vancocin) 1 gm in 200 mls @ 133.333 mls/hr IVPB Q12H [facility] Last Admin: 02/17/17 21:09 Dose: 133.333 mls/hr Piperacillin Sod/Tazobactam Sod (Zosyn 3.375 Gm Iv Premix) 3.375 gm in 50 mls @ 100 mls/hr IVPB Q6H [facility] Last Admin: 02/18/17 04:02 Dose: 100 mls/hr Fluconazole (Diflucan Iv 100 Mg/50 Ml Ns) 50 mls @ 100 mls/hr IVPB Q24H [facility] Last Admin: 02/17/17 21:18 Dose: 100 mls/hr Insulin Aspart (Novolog) 6 unit SC AC [facility] Last Admin: 02/18/17 07:36 Dose: 6 unit Insulin Aspart (Novolog) 0 unit SC ACHS [facility] PRN Reason: Protocol Last Admin: 02/18/17 07:37 Dose: Not Given Insulin Glargine (Lantus) 20 unit SC HS [facility] Last Admin: 02/17/17 21:08 Dose: 20 units Levothyroxine Sodium (Synthroid) 25 mcg PO DAILY@0630 [facility] Last Admin: 02/18/17 05:33 Dose: 25 mcg Metoprolol Tartrate (Lopressor) 50 mg PO BID [facility] Last Admin: 02/18/17 09:10 Dose: 50 mg Ondansetron HCl (Zofran Inj) 4 mg IVP Q6 PRN PRN Reason: Nausea/Vomiting Pantoprazole Sodium (Protonix Ec Tab) 40 mg PO DAILY [facility] Last Admin: 02/18/17 09:10 Dose: 40 mg Rosuvastatin Calcium (Crestor) [address] [facility] Last Admin: 02/17/17 21:09 Dose: 10 mg Saccharomyces Boulardii (Florastor) 250 mg PO BID [facility] Last Admin: 02/18/17 09:10 Dose: 250 mg - Labs Labs: 02/18/17 06:20 02/18/17 06:18 PT 11.2 SECONDS (9.7-12.2) 02/17/17 06:31 INR 1.0 02/17/17 06:31 APTT 32 SECONDS (21-34) D 02/17/17 06:31 - Constitutional Appears: Well, Non-toxic, No Acute Distress - Extremities Exam Additional comments: Left foot focused. Dressing are clean, dry, and intact. DERMATOLOGIC: Left foot, plantar 1st metatarsal head superficial ulceration measures 1x1.7cm ulcerative bed with granular base with hyperkeratotic jimena-wound margins, absent macerated wound rim. Negative [id number], no umdermining margins, no active drainage, negative erythema, negative purulence, positive for mal-odor. Left foot fourth digit with mildly fluctuant blistering dorsally, no active drainage present, mild erythema, no streaking. Upon decompression serous content expunged. Surrounding skin is intact. VASCULAR: DP/PT pulses 2/4, HARNESS MENDER<3 seconds, skin temperature is normal. There is localized edema to the left foot fourth digit. NEUROLOGIC: Protective sensation absent ORTHOPEDIC: Negative pain on palpation to the left lower extremity. 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 - Neurological Exam Neurological Exam: Alert, Awake, Oriented x3 - Psychiatric Exam Psychiatric exam: Normal Affect, Normal Mood Assessment and Plan - Assessment and Plan (Free Text) Assessment: 56 year old female with 1) left foot chronic diabetic ulceration Mcmullen grade 1 & 2) decompressed left fourth digit serous bulla Plan: Patient seen and evaluated. Chart labs and vitals reviewed. Discussed with attending, Dr. Means, who endorsed the following treatment plan. -Patients left foot dressed with betadine & DSD. -MRI results- negative for OM, shows soft tissue infection w/ DJD. . -Continue IV abx per ID. - Initial wound culture-pending. Secondary, post-debridement wound culture taken and submitted. Podiatry will continue to follow while inhouse.
[2017-02-18] MEDS ORDERED: Sodium Chloride 0.9% 1,000 ML IV SCH (12:30)
--- NOTE | 2017-02-18 12:31 | PN ---
DATE: 02/18/2017 In ICU room 3. This is a 56-year-old female with recent uncontrolled type 2 insulin-requiring diabetes, now being fo llowed closely for metabolic management. Her glycemic levels are fluctuating, but much improved at t his time. She is undergoing IV antibiotic management for a left nonhealing neuropathic foot ulcer as noted. Her latest chemistry showed a BUN of 19, sodium 132, potassium 4.3, chloride 102, CO2 24, glucose 222 and creatinine 1.7. So at this time, we will modify her basal and bolus insulin regimen and increase the Lantus to 26 uni ts subQ at bedtime daily as ordered to start tonight. We will also increase the NovoLog to 10 units subQ t.i.d. before meals to start at dinnertime today as ordered. We will titrate incrementally as i ndicated to optimize metabolic control. We will also obtain serial chemistries and supplement accord ingly as needed. We will follow. Claudia Shafer MD cc: [id number] TT: 02/18/2017 12:29:56 Confirmation # [id number] Dictation # [id number]
[2017-02-18] MEDS: Piperacill/Tazo 2.25gm in Dex 2.25 GM/50 ML BAG IVPB SCH ×2 (12:59→21:12)
[2017-02-18] MEDS: Sodium Chloride 0.9% 1,000 ML IV SCH (17:53)
[2017-02-18] MEDS: Fluconazole IV 100mg/50 ml NS 50 ML IVPB SCH (21:13)
[2017-02-18] MEDS ORDERED: (Lantus) Insulin Glargine, Recombinant SC SCH (22:00)
[2017-02-19] MEDS: Sodium Chloride 0.9% 1,000 ML IV SCH ×2 (03:10→23:30)
[2017-02-19] MEDS: Piperacill/Tazo 2.25gm in Dex 2.25 GM/50 ML BAG IVPB SCH ×3 (03:30→20:30)
[2017-02-19] MEDS: Levothyroxine 25 MCG TAB PO SCH (05:31)
[2017-02-19 06:32] LABS: BASO # 0.1 K/uL (0.0-0.2); BASO % 0.9 % (0.0-2.0); EOS # 0.1 K/uL (0.0-0.7); HEMATOCRIT 33.9 % (34.0-47.0); LYMPH # 2.5 K/uL (1.0-4.3); LYMPH % 43.4 % (20.0-40.0); MEAN CELL VOLUME 87.5 fL (81.0-99.0); MEAN CORPUSCULAR HEMOGLOBIN 29.3 pg (27.0-31.0); MEAN CORPUSCULAR HGB CONC 33.5 g/dL (33.0-37.0); MEAN PLATELET VOLUME 9.5 fL (7.2-11.7); MONO # 0.4 K/uL (0.0-0.8); MONO % 6.9 % (0.0-10.0); RED CELL DISTRIBUTION WIDTH 12.7 % (11.5-14.5); WHITE BLOOD COUNT 5.8 K/uL (4.8-10.8)
[2017-02-19 06:39] LABS: POTASSIUM 4.3 mmol/L (3.6-5.2)
[2017-02-19 06:41] LABS: BILIRUBIN,TOTAL 0.5 mg/dL (0.2-1.3)
[2017-02-19 06:42] LABS: ALB/GLOB RATIO 0.9 (1.0-2.1); CALCIUM 7.7 mg/dl (8.6-10.4); MAGNESIUM 1.7 mg/dL (1.6-2.3); PHOSPHOROUS 4.5 mg/dL (2.5-4.5); TOTAL PROTEIN 5.9 g/dL (6.3-8.3)
[2017-02-19] MEDS: (Novolog) Insulin Aspart, Recombinant 100 u/ml 10 ml vial SC SCH ×8 (08:09→21:38)
[2017-02-19] MEDS: Saccharomyces Boulardi 250 mg Cap PO SCH ×2 (09:40→17:27)
--- NOTE | 2017-02-19 12:03 | CP.PCM.PN ---
Subjective - Date & Time of Evaluation Date of Evaluation: 02/19/17 Time of Evaluation: 12:02 - Subjective Subjective: Patient seen and evaluated at bedside, NAD. Patient reports feeling better today. She denies n/v/f/c/sob at this time. She reports some mild pain to the medial midfoot. Bandage is clean dry and intact. Objective - Vital Signs/Intake and Output Vital Signs (last 24 hours): Temp Pulse Resp BP Pulse Ox 98.3 F 74 20 174/91 H 98 02/18/17 20:00 02/19/17 08:17 02/19/17 08:17 02/19/17 09:39 02/19/17 08:17 Intake and Output: 02/19/17 02/19/17 06:59 18:59 Intake Total 990 Output Total 900 Balance 90 - Medications Medications: Current Medications Acetaminophen (Tylenol 325mg Tab) 650 mg PO Q6 PRN PRN Reason: Fever >100.4 F Last Admin: 02/17/17 01:25 Dose: 650 mg Aspirin (Ecotrin) 81 mg PO DAILY [facility] Last Admin: 02/19/17 09:39 Dose: 81 mg Diphenhydramine HCl (Benadryl) 25 mg PO Q6 PRN PRN Reason: Itching / Pruritus Enalapril Maleate (Vasotec) 10 mg PO DAILY [facility] Last Admin: 02/19/17 09:39 Dose: 10 mg Fenofibrate (Tricor) 48 mg PO QPM [facility] Last Admin: 02/18/17 17:51 Dose: 48 mg Gabapentin (Neurontin) 300 mg PO TID [facility] Last Admin: 02/19/17 09:38 Dose: 300 mg Heparin Sodium (Porcine) (Heparin) 5,000 units SC Q8 [facility] Last Admin: 02/19/17 05:26 Dose: 5,000 units Fluconazole (Diflucan Iv 100 Mg/50 Ml Ns) 50 mls @ 100 mls/hr IVPB Q24H [facility] Last Admin: 02/18/17 21:13 Dose: 100 mls/hr Piperacillin Sod/Tazobactam Sod (Zosyn 2.25 Gm Iv Premix) 2.25 gm in 50 mls @ 100 mls/hr IVPB Q8H [facility] Last Admin: 02/19/17 03:30 Dose: 100 mls/hr Sodium Chloride (Sodium Chloride 0.9%) 1,000 mls @ 50 mls/hr IV .Q20H [facility] Last Admin: 02/19/17 03:10 Dose: 50 mls/hr Insulin Aspart (Novolog) 0 unit SC ACHS [facility] PRN Reason: Protocol Last Admin: 02/19/17 08:09 Dose: Not Given Insulin Aspart (Novolog) 10 unit SC AC [facility] Last Admin: 02/19/17 09:40 Dose: 10 unit Insulin Glargine (Lantus) 26 unit SC [facility] Last Admin: 02/18/17 21:11 Dose: 26 units Levothyroxine Sodium (Synthroid) 25 mcg PO DAILY@0630 [facility] Last Admin: 02/19/17 05:31 Dose: 25 mcg Metoprolol Tartrate (Lopressor) 50 mg PO BID [facility] Last Admin: 02/19/17 09:40 Dose: 50 mg Ondansetron HCl (Zofran Inj) 4 mg IVP Q6 PRN PRN Reason: Nausea/Vomiting Rosuvastatin Calcium (Crestor) 10 mg PO [facility] Last Admin: 02/17/17 21:09 Dose: 10 mg Saccharomyces Boulardii (Florastor) 250 mg PO BID [facility] Last Admin: 02/19/17 09:40 Dose: 250 mg - Labs Labs: 02/19/17 06:25 02/19/17 06:25 PT 11.2 SECONDS (9.7-12.2) 02/17/17 06:31 INR 1.0 02/17/17 06:31 APTT 32 SECONDS (21-34) D 02/17/17 06:31 - Constitutional Appears: Well, Non-toxic, No Acute Distress - Neurological Exam Neurological Exam: Oriented x3 - Psychiatric Exam Psychiatric exam: Normal Affect, Normal Mood - Additional Findings Additional findings: DERMATOLOGIC: Left foot hyperkeratotic ulceration submet 1, no drainage, fibrous wund base, negative drainage, negative erythema, negative purulence. Left foot fourth digit thickened tissue dorsally, with central opening where incision and drainage was performed. There is no purulence remaining, no drainage, no erythema. VASCULAR: DP/PT pulses 2/4, HAND UMBRELLA TIPPER<3 seconds, skin temperature is normal. There is localized edema to the left foot fourth digit. NEUROLOGIC: Protective sensation absent ORTHOPEDIC: Negative pain on palpation to the left lower extremity. 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 Assessment and Plan - Assessment and Plan (Free Text) Assessment: 56 year old female with chronic ulceration of the left plantar foot, left foot fourth digit drained abscess Plan: Patient seen and evaluated, d/w attending Dr. Means Patients wound dressed with xeroform, DSD No purulence or drainage at this time MRI- negative for OM Wound culture- gram negative rods, gram positive cocci, yeast species. final result pending Continue abx per ID Podiatry will continue to follow
--- NOTE | 2017-02-19 18:17 | CP.PCM.PN ---
<Tra Lugo - Last Filed: 02/19/17 18:14> Subjective - Date & Time of Evaluation Date of Evaluation: 02/19/17 Time of Evaluation: 07:30 - Subjective Subjective: Dr. Lugo PGY 1 Hospitalist Note Patient seen and evaluated at bedside. She reports some abdominal discomfort but denies any nausea, vomiting, fever, or chills. She denies any leg pain. Per nursing, no adverse events over night. Objective - Vital Signs/Intake and Output Vital Signs (last 24 hours): Temp Pulse Resp BP Pulse Ox 98.3 F 74 20 174/91 H 98 02/18/17 20:00 02/19/17 08:17 02/19/17 08:17 02/19/17 09:39 02/19/17 08:17 Intake and Output: 02/19/17 02/19/17 06:59 18:59 Intake Total 990 Output Total 900 400 Balance 90 -400 - Medications Medications: Current Medications Acetaminophen (Tylenol 325mg Tab) 650 mg PO Q6 PRN PRN Reason: Fever >100.4 F Last Admin: 02/19/17 15:42 Dose: 650 mg Aspirin (Ecotrin) 81 mg PO DAILY [facility] Last Admin: 02/19/17 09:39 Dose: 81 mg Diphenhydramine HCl (Benadryl) 25 mg PO Q6 PRN PRN Reason: Itching / Pruritus Enalapril Maleate (Vasotec) 10 mg PO DAILY [facility] Last Admin: 02/19/17 09:39 Dose: 10 mg Fenofibrate (Tricor) 48 mg PO QPM [facility] Last Admin: 02/19/17 17:27 Dose: 48 mg Gabapentin (Neurontin) 300 mg PO TID [facility] Last Admin: 02/19/17 17:27 Dose: 300 mg Fluconazole (Diflucan Iv 100 Mg/50 Ml Ns) 50 mls @ 100 mls/hr IVPB Q24H [facility] Last Admin: 02/18/17 21:13 Dose: 100 mls/hr Piperacillin Sod/Tazobactam Sod (Zosyn 2.25 Gm Iv Premix) 2.25 gm in 50 mls @ 100 mls/hr IVPB Q8H [facility] Last Admin: 02/19/17 12:13 Dose: 100 mls/hr Sodium Chloride (Sodium Chloride 0.9%) 1,000 mls @ 50 mls/hr IV .Q20H [facility] Last Admin: 02/19/17 03:10 Dose: 50 mls/hr Insulin Aspart (Novolog) 0 unit SC ACHS [facility] PRN Reason: Protocol Last Admin: 02/19/17 16:42 Dose: Not Given Insulin Aspart (Novolog) 10 unit SC AC [facility] Last Admin: 02/19/17 17:27 Dose: 10 unit Insulin Glargine (Lantus) 30 unit SC [facility] Levothyroxine Sodium (Synthroid) 25 mcg PO DAILY@0630 [facility] Last Admin: 02/19/17 05:31 Dose: 25 mcg Metoprolol Tartrate (Lopressor) 50 mg PO BID [facility] Last Admin: 02/19/17 17:27 Dose: 50 mg Ondansetron HCl (Zofran Inj) 4 mg IVP Q6 PRN PRN Reason: Nausea/Vomiting Rosuvastatin Calcium (Crestor) 10 mg PO [facility] Last Admin: 02/17/17 21:09 Dose: 10 mg Saccharomyces Boulardii (Florastor) 250 mg PO BID [facility] Last Admin: 02/19/17 17:27 Dose: 250 mg - Labs Labs: 02/19/17 06:25 02/19/17 06:25 PT 11.2 SECONDS (9.7-12.2) 02/17/17 06:31 INR 1.0 02/17/17 06:31 APTT 32 SECONDS (21-34) D 02/17/17 06:31 - Constitutional Appears: Non-toxic, No Acute Distress - Head Exam Head Exam: ATRAUMATIC, NORMOCEPHALIC - Eye Exam Eye Exam: EOMI, Normal appearance, PERRL Pupil Exam: NORMAL ACCOMODATION, PERRL - ENT Exam ENT Exam: Mucous Membranes Moist, Normal Oropharynx - Respiratory Exam Respiratory Exam: Clear to Ausculation Bilateral, Rhonchi, Wheezes, NORMAL BREATHING PATTERN. absent: Rales - Cardiovascular Exam Cardiovascular Exam: REGULAR RHYTHM, +S1, +S2. absent: Gallop, Rubs, Murmur - GI/Abdominal Exam GI & Abdominal Exam: Soft, Normal Bowel Sounds. absent: Tenderness - Extremities Exam Extremities Exam: absent: Normal Inspection (left foot wound clean and wrapped) , Tenderness - Neurological Exam Neurological Exam: Alert, Awake, CN II-XII Intact, Oriented x3 - Psychiatric Exam Psychiatric exam: Normal Affect, Normal Mood - Skin Skin Exam: Dry, Normal Color, Warm. absent: Intact (left foot wound cleaned and dry) Assessment and Plan - Assessment and Plan (Free Text) Plan: Chest pain * Cardiology (Dr. Garcia) on the case-->help appreciated * ASIA X 3 negative * Echocardiogram (02/17/17): within normal * Continue metoprolol 50 mg po bid * Continue aspirin 81 mg po daily * Continue enalapril 10 mg po daily * Crestor 10mg PO qHS * Will need an outpatient stress test per cardio note. * d/c tele and transfer to [facility] surge Diabetic Foot Ulcer * Suspicion for Osteomyelitis * ID consult, Dr. Groves, help appreciated * Podiatry, Dr. Gideon Means, help appreciated * Continue IV vancomycin and zosyn * Podiatry evaluated left LE, dressed with betadine, reccomended continuing vancomycin + zosyn, wound cultures pending, podiatry will monitor the patient * No leukocytosis, afebrile * CT LE (02/16/17): cortical irregularity and periosteal thickening seen at the distal 1st metatarsal bone likely represent chronic ostemoelytis. No evidence of acute osteomyelitis in the left foot. Skin ulceration and subcutaneous density and edea seen at the medial aspect of the distal left foot adjacent to the distal 1 st metatarsal bone and 1st toe. * MRI LE: no definite evidence of acute osteomyelitis. Heterogenous increased signal in soft tissue without evidence of discrete fluid or drainable abscess. Moderate degenerative and arthritis changes. * Changed to Zosyn 2.25 IV Q 8 hours (active since 02/16/17) in light of acute renal insufficiency * Stopped Vancomcyin in light of vancomycin trough and acute renal insufficiency * Florastor 250mg PO bid Headache * Denies * Blood pressure was controlled this morning * CT head: negative [see full report] * Likely due to uncontrolled hypertension Diabetes mellitus type 2 * History of noncompliance * Increase units of ISS as blood sugar is nearing * Continue accuchecks QAC and HS * Likely uncontrolled diabetes * Pre Owned Sales Manager referral * Endocrinology (Dr. Shafer) consult for further recommendations for diabetes management * continue Lantus 26 units subq HS * continuet Gabapentin 300mg PO tid for neuropathic symptoms secondary to uncontrolled diabetes * Crestor 10mg PO qHS * a1c: 14.1 Hypertension * History of noncompliance * Continue enalapril 10 mg po daily * Continue metoprolol 50 mg po bid * Monitor * Controlled Hyperlipidemia * Continue crestor 10 mg po hs * Continue fenofibrate 48 mg po hs * LDL:171, Cholestrol >325, TG: >525, HDL: 35 Hypothyroidism * Continue synthroid 25 mc po daily (home med) * TSH within normal limits Electrolyte imbalances * Replete K+ in maintenance fluids, one K rider and KCl * Ordered for Mg2+ * and repeat BMP and Mg2+ at 4PM * Repeat Ca2+ to see if true-->will supplement with calcium carbonate Acute Renal insufficiency * Stopped vancomycin in light of vancomycin trough and elevated Cr * Changed to renal dose of Zosyn * Ordered for random vancomycin level for tomorrow * NS 100cc/hr * Monitor BUN/Cr * Renal US (02/16/17): No significant or acute findings to account for/related to the clinical presentation. Prophylactic measures * Pepcid 20mg PO daily * Change to Lovenox 30mg subq daily * Zofran 4 mg IVP q6h prn * Tylenol 650 mg po q6h pr Assessment and plan discussed with attending physician. <Naresh Beatty H - Last Filed: 02/19/17 18:46> Objective - Vital Signs/Intake and Output Vital Signs (last 24 hours): Temp Pulse Resp BP Pulse Ox 98.3 F 74 20 174/91 H 98 02/18/17 20:00 02/19/17 08:17 02/19/17 08:17 02/19/17 09:39 02/19/17 08:17 Intake and Output: 02/19/17 02/19/17 06:59 18:59 Intake Total 990 Output Total 900 400 Balance 90 -400 - Medications Medications: Current Medications Acetaminophen (Tylenol 325mg Tab) 650 mg PO Q6 PRN PRN Reason: Fever >100.4 F Last Admin: 02/19/17 15:42 Dose: 650 mg Aspirin (Ecotrin) 81 mg PO DAILY [facility] Last Admin: 02/19/17 09:39 Dose: 81 mg Diphenhydramine HCl (Benadryl) 25 mg PO Q6 PRN PRN Reason: Itching / Pruritus Enalapril Maleate (Vasotec) 10 mg PO DAILY [facility] Last Admin: 02/19/17 09:39 Dose: 10 mg Fenofibrate (Tricor) 48 mg PO QPM [facility] Last Admin: 02/19/17 17:27 Dose: 48 mg Gabapentin (Neurontin) 300 mg PO TID [facility] Last Admin: 02/19/17 17:27 Dose: 300 mg Fluconazole (Diflucan Iv 100 Mg/50 Ml Ns) 50 mls @ 100 mls/hr IVPB Q24H [facility] Last Admin: 02/18/17 21:13 Dose: 100 mls/hr Piperacillin Sod/Tazobactam Sod (Zosyn 2.25 Gm Iv Premix) 2.25 gm in 50 mls @ 100 mls/hr IVPB Q8H [facility] Last Admin: 02/19/17 12:13 Dose: 100 mls/hr Sodium Chloride (Sodium Chloride 0.9%) 1,000 mls @ 50 mls/hr IV .Q20H [facility] Last Admin: 02/19/17 03:10 Dose: 50 mls/hr Insulin Aspart (Novolog) 0 unit SC ACHS [facility] PRN Reason: Protocol Last Admin: 02/19/17 16:42 Dose: Not Given Insulin Aspart (Novolog) 10 unit SC AC [facility] Last Admin: 02/19/17 17:27 Dose: 10 unit Insulin Glargine (Lantus) 30 unit SC [facility] Levothyroxine Sodium (Synthroid) 25 mcg PO DAILY@0630 [facility] Last Admin: 02/19/17 05:31 Dose: 25 mcg Metoprolol Tartrate (Lopressor) 50 mg PO BID [facility] Last Admin: 02/19/17 17:27 Dose: 50 mg Ondansetron HCl (Zofran Inj) 4 mg IVP Q6 PRN PRN Reason: Nausea/Vomiting Rosuvastatin Calcium (Crestor) 10 mg PO HS [facility] Last Admin: 02/17/17 21:09 Dose: 10 mg Saccharomyces Boulardii (Florastor) 250 mg PO BID [facility] Last Admin: 02/19/17 17:27 Dose: 250 mg - Labs Labs: 02/19/17 06:25 02/19/17 06:25 PT 11.2 SECONDS (9.7-12.2) 02/17/17 06:31 INR 1.0 02/17/17 06:31 APTT 32 SECONDS (21-34) D 02/17/17 06:31 Attending/Attestation - Attestation I have personally seen and examined this patient.: Yes I have fully participated in the care of the patient.: Yes I have reviewed all pertinent clinical information, including history, physical exam and plan: Yes Notes (Text): Medical Attending: Patient was seen and examined by me. Agree with the above note by the resident. The patient will be continued on IV abx for the time being MRI of the foot was negative Pending repeat cultures at this time
--- NOTE | 2017-02-19 18:53 | PN ---
DATE: 02/19/2017 This is a 56-year-old female with recent uncontrolled type 2 insulin-requiring diabetes, now being fo llowed closely for metabolic management. Her glycemic levels are fluctuating, but much improved at t his time and the latest glucose levels have ranged from 122 to 161 and 191 mg/dL. Her latest chemistry physics teacher maribel include a BUN of 21, sodium 133, potassium 4.3, chloride 104, CO2 of 26, glucose 208 and creatin ine 1.8. So, at this time, we will modify her basal and bolus insulin regimen and increase the NovoL og to 10 units subQ t.i.d. before meals to start today as ordered. We will also increase the Lantus to 30 units subQ at bedtime daily to start tonight. We will continue the low-dose correction scale u sing NovoLog insulin as ordered. As her glycemic levels are much improved at this time, we will sign off from her current endocrine care and would recommend that this aforementioned basal and bolus ins ulin regimen be continued at least for inpatient stay to optimize the metabolic control. She has fin ancial constraints and also lack of medical insurance and this has to be addressed prior to her disch arge accordingly. Claudia Shafer MD cc: [id number] TT: 02/19/2017 18:52:27 Confirmation # [id number] Dictation # [id number]
[2017-02-19] MEDS: Fluconazole IV 100mg/50 ml NS 50 ML IVPB SCH (20:00)
[2017-02-19] MEDS: (Lantus) Insulin Glargine, Recombinant SC SCH (21:37)
[2017-02-20] MEDS: Piperacill/Tazo 2.25gm in Dex 2.25 GM/50 ML BAG IVPB SCH ×3 (04:30→20:30)
[2017-02-20] MEDS: Levothyroxine 25 MCG TAB PO SCH (06:13)
[2017-02-20 06:32] LABS: BASO # 0.1 K/uL (0.0-0.2); BASO % 0.9 % (0.0-2.0); EOS # 0.1 K/uL (0.0-0.7); EOS % 1.9 % (0.0-4.0); HEMATOCRIT 34.7 % (34.0-47.0); LYMPH # 2.4 K/uL (1.0-4.3); LYMPH % 40.7 % (20.0-40.0); MEAN CELL VOLUME 88.2 fL (81.0-99.0); MEAN CORPUSCULAR HEMOGLOBIN 29.3 pg (27.0-31.0); MEAN CORPUSCULAR HGB CONC 33.2 g/dL (33.0-37.0); MEAN PLATELET VOLUME 9.1 fL (7.2-11.7); MONO # 0.3 K/uL (0.0-0.8); MONO % 5.9 % (0.0-10.0); RED CELL DISTRIBUTION WIDTH 12.6 % (11.5-14.5); WHITE BLOOD COUNT 5.9 K/uL (4.8-10.8)
[2017-02-20 06:50] LABS: POTASSIUM 4.6 mmol/L (3.6-5.2)
[2017-02-20 06:52] LABS: BILIRUBIN,TOTAL 0.5 mg/dL (0.2-1.3)
[2017-02-20 06:53] LABS: CALCIUM 8.3 mg/dl (8.6-10.4); TOTAL PROTEIN 6.2 g/dL (6.3-8.3)
[2017-02-20] MEDS: (Novolog) Insulin Aspart, Recombinant 100 u/ml 10 ml vial SC SCH ×7 (08:05→21:31)
[2017-02-20] MEDS: Saccharomyces Boulardi 250 mg Cap PO SCH ×2 (09:53→17:22)
--- NOTE | 2017-02-20 10:17 | CP.PCM.PN ---
Subjective - Date & Time of Evaluation Date of Evaluation: 02/20/17 Time of Evaluation: 10:16 - Subjective Subjective: Patient seen and evaluated, NAD. Patients daughter is at bedside this morning. Patient states that she is feeling much better, denies pain to her LLE. Patient denies n/v/f/c/sob. Objective - Vital Signs/Intake and Output Vital Signs (last 24 hours): Temp Pulse Resp BP Pulse Ox 97 F L 75 15 160/73 H 100 02/20/17 08:00 02/20/17 08:00 02/20/17 07:05 02/20/17 09:54 02/19/17 21:00 - Medications Medications: Current Medications Acetaminophen (Tylenol 325mg Tab) 650 mg PO Q6 PRN PRN Reason: Fever >100.4 F Last Admin: 02/19/17 15:42 Dose: 650 mg Aspirin (Ecotrin) 81 mg PO DAILY [facility] Last Admin: 02/20/17 09:53 Dose: 81 mg Diphenhydramine HCl (Benadryl) 25 mg PO Q6 PRN PRN Reason: Itching / Pruritus Enalapril Maleate (Vasotec) 10 mg PO DAILY [facility] Last Admin: 02/20/17 09:54 Dose: 10 mg Fenofibrate (Tricor) 48 mg PO QPM [facility] Last Admin: 02/19/17 17:27 Dose: 48 mg Gabapentin (Neurontin) 300 mg PO TID [facility] Last Admin: 02/20/17 09:55 Dose: 300 mg Fluconazole (Diflucan Iv 100 Mg/50 Ml Ns) 50 mls @ 100 mls/hr IVPB Q24H [facility] Last Admin: 02/19/17 20:00 Dose: 100 mls/hr Piperacillin Sod/Tazobactam Sod (Zosyn 2.25 Gm Iv Premix) 2.25 gm in 50 mls @ 100 mls/hr IVPB Q8H [facility] Last Admin: 02/20/17 04:30 Dose: 100 mls/hr Sodium Chloride (Sodium Chloride 0.9%) 1,000 mls @ 50 mls/hr IV .Q20H [facility] Last Admin: 02/19/17 23:30 Dose: 50 mls/hr Insulin Aspart (Novolog) 0 unit SC ACHS [facility] PRN Reason: Protocol Last Admin: 02/20/17 08:05 Dose: Not Given Insulin Aspart (Novolog) 10 unit SC [facility] Last Admin: 02/20/17 08:05 Dose: 10 unit Insulin Glargine (Lantus) 30 unit SC [facility] Last Admin: 02/19/17 21:37 Dose: 30 u Levothyroxine Sodium (Synthroid) 25 mcg PO DAILY@0630 [facility] Last Admin: 02/20/17 06:13 Dose: 25 mcg Metoprolol Tartrate (Lopressor) 50 mg PO BID [facility] Last Admin: 02/20/17 09:54 Dose: 50 mg Ondansetron HCl (Zofran Inj) 4 mg IVP Q6 PRN PRN Reason: Nausea/Vomiting Rosuvastatin Calcium (Crestor) 10 mg PO [facility] Last Admin: 02/17/17 21:09 Dose: 10 mg Saccharomyces Boulardii (Florastor) 250 mg PO BID [facility] Last Admin: 02/20/17 09:53 Dose: 250 mg - Labs Labs: 02/20/17 06:24 02/20/17 06:24 PT 11.2 SECONDS (9.7-12.2) 02/17/17 06:31 INR 1.0 02/17/17 06:31 APTT 32 SECONDS (21-34) D 02/17/17 06:31 - Constitutional Appears: Well, Non-toxic, No Acute Distress - Neurological Exam Neurological Exam: Oriented x3 - Psychiatric Exam Psychiatric exam: Normal Affect, Normal Mood - Additional Findings Additional findings: DERMATOLOGIC: Left foot hyperkeratotic ulceration submet 1, no drainage, fibrous wund base, negative drainage, negative erythema, negative purulence. Left foot fourth digit thickened tissue dorsally, with central opening where incision and drainage was performed. There is no purulence remaining, no drainage, no erythema. VASCULAR: DP/PT pulses 2/4, DETENTION OFFICER<3 seconds, skin temperature is normal. There is localized edema to the left foot fourth digit. NEUROLOGIC: Protective sensation absent ORTHOPEDIC: Negative pain on palpation to the left lower extremity. 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 Assessment and Plan - Assessment and Plan (Free Text) Assessment: 56 year old female with left foot chronic ulceration submet 1, drained abscess of the fourth digit Plan: Patient seen and evaluated, d/w attending Dr. Means Patients left foot dressed with xeroform, betadine to fourth digit, DSD Order placed for surgical shoe, pt may WBAT however should only ambulate minimally Wound culture- enterobacter, enterococcus, yeast Continue IV abx Pt to f/u in podiatry clinic after dc Podiatry will continue to follow while in house
[2017-02-20 17:51] VITALS: RESP 20
--- NOTE | 2017-02-20 18:20 | CP.PCM.PN ---
<Tra Lugo - Last Filed: 02/20/17 18:17> Subjective - Date & Time of Evaluation Date of Evaluation: 02/20/17 Time of Evaluation: 07:45 - Subjective Subjective: Hospitalist Note- Dr. Beatty's service Patient seen and evaluated with family present using [place] ([place] [id number]). Patient reports she is feeling better today and has been performing her stretching exercises to help with her chest pain. She is nervous about the infection in her foot but was reassured. She reports having soft bowel movements but denies any constipation, diarrhea, fever, or chills. She understands that she will need better management of her blood sugar. Her daughter was present who states she will help the patient at home. Per nursing, no adverse events over night. Objective - Vital Signs/Intake and Output Vital Signs (last 24 hours): Temp Pulse Resp BP Pulse Ox 97.3 F L 88 20 183/86 H 100 02/20/17 16:00 02/20/17 17:00 02/20/17 17:00 02/20/17 17:00 02/19/17 21:00 Intake and Output: 02/20/17 02/20/17 06:59 18:59 Intake Total 1395 Output Total 800 Balance 595 - Medications Medications: Current Medications Acetaminophen (Tylenol 325mg Tab) 650 mg PO Q6 PRN PRN Reason: Fever >100.4 F Last Admin: 02/19/17 15:42 Dose: 650 mg Aspirin (Ecotrin) 81 mg PO DAILY [facility] Last Admin: 02/20/17 09:53 Dose: 81 mg Diphenhydramine HCl (Benadryl) 25 mg PO Q6 PRN PRN Reason: Itching / Pruritus Enalapril Maleate (Vasotec) 10 mg PO DAILY [facility] Last Admin: 02/20/17 09:54 Dose: 10 mg Fenofibrate (Tricor) 48 mg PO QPM [facility] Last Admin: 02/20/17 17:22 Dose: 48 mg Gabapentin (Neurontin) 300 mg PO TID [facility] Last Admin: 02/20/17 17:22 Dose: 300 mg Fluconazole (Diflucan Iv 100 Mg/50 Ml Ns) 50 mls @ 100 mls/hr IVPB Q24H [facility] Last Admin: 02/19/17 20:00 Dose: 100 mls/hr Piperacillin Sod/Tazobactam Sod (Zosyn 2.25 Gm Iv Premix) 2.25 gm in 50 mls @ 100 mls/hr IVPB Q8H [facility] Last Admin: 02/20/17 11:55 Dose: 100 mls/hr Sodium Chloride (Sodium Chloride 0.9%) 1,000 mls @ 50 mls/hr IV .Q20H [facility] Last Admin: 02/19/17 23:30 Dose: 50 mls/hr Insulin Aspart (Novolog) 0 unit SC ACHS [facility] PRN Reason: Protocol Last Admin: 02/20/17 16:48 Dose: Not Given Insulin Aspart (Novolog) 10 unit SC AC [facility] Last Admin: 02/20/17 16:48 Dose: 10 unit Insulin Glargine (Lantus) 30 unit SC [facility] Last Admin: 02/19/17 21:37 Dose: 30 u Levothyroxine Sodium (Synthroid) 25 mcg PO DAILY@0630 [facility] Last Admin: 02/20/17 06:13 Dose: 25 mcg Metoprolol Tartrate (Lopressor) 50 mg PO BID [facility] Last Admin: 02/20/17 17:22 Dose: 50 mg Ondansetron HCl (Zofran Inj) 4 mg IVP Q6 PRN PRN Reason: Nausea/Vomiting Rosuvastatin Calcium (Crestor) 10 mg PO [facility] Last Admin: 02/17/17 21:09 Dose: 10 mg Saccharomyces Boulardii (Florastor) 250 mg PO BID [facility] Last Admin: 02/20/17 17:22 Dose: 250 mg - Labs Labs: 02/20/17 06:24 02/20/17 06:24 PT 11.2 SECONDS (9.7-12.2) 02/17/17 06:31 INR 1.0 02/17/17 06:31 APTT 32 SECONDS (21-34) D 02/17/17 06:31 - Constitutional Appears: Non-toxic, No Acute Distress - Head Exam Head Exam: ATRAUMATIC, NORMOCEPHALIC - Eye Exam Eye Exam: EOMI, Normal appearance, PERRL Pupil Exam: NORMAL ACCOMODATION, PERRL - ENT Exam ENT Exam: Mucous Membranes Moist, Normal Oropharynx - Neck Exam Neck Exam: Normal Inspection. absent: Tenderness, Thyromegaly - Respiratory Exam Respiratory Exam: Chest Wall Tenderness (left ribs 4-6), Clear to Ausculation Bilateral, NORMAL BREATHING PATTERN. absent: Rales, Rhonchi, Wheezes - Cardiovascular Exam Cardiovascular Exam: REGULAR RHYTHM, +S1, +S2. absent: Gallop, Rubs, Murmur - GI/Abdominal Exam GI & Abdominal Exam: Soft, Normal Bowel Sounds. absent: Tenderness - Extremities Exam Extremities Exam: Normal Capillary Refill. absent: Normal Inspection (left foot wound clean and dressed by podiatry), Pedal Edema, Tenderness - Back Exam Back Exam: NORMAL INSPECTION. absent: rash noted, tenderness - Neurological Exam Neurological Exam: Alert, Awake, CN II-XII Intact, Oriented x3 Neuro motor strength exam: Left Upper Extremity: 5, Right Upper Extremity: 5, Left Lower Extremity: 5, Right Lower Extremity: 5 - Psychiatric Exam Psychiatric exam: Normal Affect, Normal Mood - Skin Skin Exam: Dry, Intact, Normal Color, Warm Assessment and Plan - Assessment and Plan (Free Text) Plan: Chest pain * Cardiology (Dr. Garcia) on the case-->help appreciated * ASIA X 3 negative * Echocardiogram (02/17/17): within normal * Continue metoprolol 50 mg po bid * Continue aspirin 81 mg po daily * Continue enalapril 10 mg po daily * Crestor 10mg PO qHS * Will need an outpatient stress test per cardio note. * d/c tele and transfer to [facility] Diabetic Foot Ulcer * ID consult, Dr. Groves, help appreciated * Podiatry, Dr. 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 No evidence of acute osteomyelitis in the left foot. Skin ulceration and subcutaneous density and edema seen at the medial aspect of the distal left foot adjacent to the distal 1 st metatarsal bone and 1st toe. * MRI LE: no definite evidence of acute osteomyelitis. Heterogenous increased signal in soft tissue without evidence of discrete fluid or drainable abscess. Moderate degenerative and arthritis changes. 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 Shafer) consult for further recommendations for diabetes management * increased Lantus to 30 units subq HS * continue novolog 10 units SC AC * continue Gabapentin 300mg PO tid for neuropathic symptoms secondary to uncontrolled diabetes * Crestor 10mg PO qHS Hypertension * Controlled * History of noncompliance * Continue enalapril 10 mg po daily * Continue metoprolol 50 mg po bid * Monitor Hyperlipidemia * LDL:171, Cholestrol >325, TG: >525, HDL: 35 * Continue crestor 10 mg po hs * Continue fenofibrate 48 mg po hs Hypothyroidism * TSH within normal limits * Continue synthroid 25 mc po daily (home med) Electrolyte imbalances * Na, Cl, and K wnl today * Ca2+ mildly low, will continue monitor * replenish as needed Acute Renal insufficiency * Renal US (02/16/17): No significant or acute findings to account for/related to the clinical presentation * Stopped vancomycin in light of vancomycin trough and elevated Cr * continue to renal dose of Zosyn * Monitor BUN/Cr Prophylactic measures * Pepcid 20mg PO daily * Lovenox 30mg subq daily * Zofran 4 mg IVP q6h prn * Tylenol 650 mg po q6h pr Assessment and plan discussed with attending physician. <Naresh Beatty H - Last Filed: 02/20/17 18:42> Objective - Vital Signs/Intake and Output Vital Signs (last 24 hours): Temp Pulse Resp BP Pulse Ox 97.3 F L 88 20 183/86 H 100 02/20/17 16:00 02/20/17 17:00 02/20/17 17:00 02/20/17 17:00 02/19/17 21:00 Intake and Output: 02/20/17 02/20/17 06:59 18:59 Intake Total 1395 Output Total 800 Balance 595 - Medications Medications: Current Medications Acetaminophen (Tylenol 325mg Tab) 650 mg PO Q6 PRN PRN Reason: Fever >100.4 F Last Admin: 02/19/17 15:42 Dose: 650 mg Aspirin (Ecotrin) 81 mg PO DAILY [facility] Last Admin: 02/20/17 09:53 Dose: 81 mg Diphenhydramine HCl (Benadryl) 25 mg PO Q6 PRN PRN Reason: Itching / Pruritus Enalapril Maleate (Vasotec) 10 mg PO DAILY [facility] Last Admin: 02/20/17 09:54 Dose: 10 mg Fenofibrate (Tricor) 48 mg PO QPM [facility] Last Admin: 02/20/17 17:22 Dose: 48 mg Gabapentin (Neurontin) 300 mg PO TID [facility] Last Admin: 02/20/17 17:22 Dose: 300 mg Fluconazole (Diflucan Iv 100 Mg/50 Ml Ns) 50 mls @ 100 mls/hr IVPB Q24H [facility] Last Admin: 02/19/17 20:00 Dose: 100 mls/hr Piperacillin Sod/Tazobactam Sod (Zosyn 2.25 Gm Iv Premix) 2.25 gm in 50 mls @ 100 mls/hr IVPB Q8H [facility] Last Admin: 02/20/17 11:55 Dose: 100 mls/hr Insulin Aspart (Novolog) 0 unit SC ACHS [facility] PRN Reason: Protocol Last Admin: 02/20/17 16:48 Dose: Not Given Insulin Aspart (Novolog) 10 unit SC AC [facility] Last Admin: 02/20/17 16:48 Dose: 10 unit Insulin Glargine (Lantus) 30 unit SC [facility] Last Admin: 02/19/17 21:37 Dose: 30 u Levothyroxine Sodium (Synthroid) 25 mcg PO DAILY@0630 [facility] Last Admin: 02/20/17 06:13 Dose: 25 mcg Metoprolol Tartrate (Lopressor) 50 mg PO BID [facility] Last Admin: 02/20/17 17:22 Dose: 50 mg Ondansetron HCl (Zofran Inj) 4 mg IVP Q6 PRN PRN Reason: Nausea/Vomiting Rosuvastatin Calcium (Crestor) 10 mg PO HS [facility] Last Admin: 02/17/17 21:09 Dose: 10 mg Saccharomyces Boulardii (Florastor) 250 mg PO BID [facility] Last Admin: 02/20/17 17:22 Dose: 250 mg - Labs Labs: 02/20/17 06:24 02/20/17 06:24 PT 11.2 SECONDS (9.7-12.2) 02/17/17 06:31 INR 1.0 02/17/17 06:31 APTT 32 SECONDS (21-34) D 02/17/17 06:31 Attending/Attestation - Attestation I have personally seen and examined this patient.: Yes I have fully participated in the care of the patient.: Yes I have reviewed all pertinent clinical information, including history, physical exam and plan: Yes
[2017-02-20] MEDS: Fluconazole IV 100mg/50 ml NS 50 ML IVPB SCH (19:49)
[2017-02-20] MEDS: (Lantus) Insulin Glargine, Recombinant SC SCH (21:30)
--- NOTE | 2017-02-20 22:56 | PN ---
DATE: 02/20/2017 SUBJECTIVE: The patient was seen in the ICU. She still is in the ICU and she was feeling better. S he does have infection in the left foot. She had a dressing and the nurse had called me that there w ere 2 bacteria growing. I have called the lab and I think Zosyn is a fine choice as it is covering t he enterococcus and Enterobacter. The patient does have some renal insufficiency and staying away fr om vancomycin. I also looked up the MRI report and the MRI report said that there is no osteomyeliti s; however, CAT scan showed some areas on the first metatarsal and fourth and fifth toes. At this ti me, there was a dressing. Will follow up with podiatry what they think is going on. PHYSICAL EXAMINATION: VITAL SIGNS: T-max is 97.3, pulse 88, blood pressure 183/86, respirations are 20. HEENT: Head is atraumatic, normocephalic. NECK: Supple. LUNGS: Clear. HEART: S1, S2 is regular. No murmurs appreciated. ABDOMEN: Soft, nontender, no guarding, no rigidity present. EXTREMITIES: Left foot has a dressing at this time and she was sitting, so, it was not easy to open it up. LABORATORY DATA: White count was 5.9, hemoglobin 11.5. Her chemistry: BUN is 20, creatinine is 1.8 . Micro cassidy, there is 1 culture which is from 02/16, which shows Enterobacter. This other culture shows Enterobacter and Enterococcus faecium and yeast species and she was already having urine yeast, so she has been on Diflucan. PLAN: So, we will continue Diflucan and Zosyn at this time and will follow. Will have to discuss wi th the podiatry what they think of it because one test is positive and the other test is negative. S he does have neuropathy. Will follow. Jl Groves MD cc: [id number] TT: 02/20/2017 22:55:33 Confirmation # [id number] Dictation # [id number] koki
[2017-02-21] MEDS: Piperacill/Tazo 2.25gm in Dex 2.25 GM/50 ML BAG IVPB SCH ×3 (05:00→20:26)
[2017-02-21] MEDS: Levothyroxine 25 MCG TAB PO SCH (05:40)
[2017-02-21 06:51] LABS: BASO # 0.1 K/uL (0.0-0.2); BASO % 0.8 % (0.0-2.0); EOS # 0.1 K/uL (0.0-0.7); HEMATOCRIT 35.5 % (34.0-47.0); LYMPH # 2.4 K/uL (1.0-4.3); LYMPH % 33.2 % (20.0-40.0); MEAN CELL VOLUME 87.2 fL (81.0-99.0); MEAN CORPUSCULAR HEMOGLOBIN 28.6 pg (27.0-31.0); MEAN CORPUSCULAR HGB CONC 32.9 g/dL (33.0-37.0); MEAN PLATELET VOLUME 9.2 fL (7.2-11.7); MONO # 0.5 K/uL (0.0-0.8); MONO % 7.1 % (0.0-10.0); WHITE BLOOD COUNT 7.2 K/uL (4.8-10.8)
[2017-02-21 07:29] LABS: POTASSIUM 4.1 mmol/L (3.6-5.2)
[2017-02-21 07:31] LABS: BILIRUBIN,TOTAL 0.4 mg/dL (0.2-1.3); CALCIUM 8.6 mg/dl (8.6-10.4); TOTAL PROTEIN 5.9 g/dL (6.3-8.3)
[2017-02-21] MEDS: (Novolog) Insulin Aspart, Recombinant 100 u/ml 10 ml vial SC SCH ×8 (07:39→21:35)
--- NOTE | 2017-02-21 09:38 | CP.PCM.PN ---
Subjective - Date & Time of Evaluation Date of Evaluation: 02/21/17 Time of Evaluation: 09:30 - Subjective Subjective: 56 y/o female patent was seen and evaluated at bedside this morning with a family member present at bedside. Patient states that she is feeling well this morning. She denies any F/C/N/V/SOB/CP. Left foot dressing appears to be C/D/I. No pedal complaints reported at this time. Objective - Vital Signs/Intake and Output Vital Signs (last 24 hours): Temp Pulse Resp BP Pulse Ox 97.9 F 81 20 126/68 97 02/21/17 07:55 02/21/17 07:55 02/21/17 07:55 02/21/17 07:55 02/21/17 07:55 Intake and Output: 02/21/17 02/21/17 06:59 18:59 Intake Total 290 Balance 290 - Medications Medications: Current Medications Acetaminophen (Tylenol 325mg Tab) 650 mg PO Q6 PRN PRN Reason: Fever >100.4 F Last Admin: 02/19/17 15:42 Dose: 650 mg Aspirin (Ecotrin) 81 mg PO DAILY [facility] Last Admin: 02/20/17 09:53 Dose: 81 mg Diphenhydramine HCl (Benadryl) 25 mg PO Q6 PRN PRN Reason: Itching / Pruritus Enalapril Maleate (Vasotec) 10 mg PO DAILY [facility] Last Admin: 02/20/17 09:54 Dose: 10 mg Fenofibrate (Tricor) 48 mg PO QPM [facility] Last Admin: 02/20/17 17:22 Dose: 48 mg Gabapentin (Neurontin) 300 mg PO TID [facility] Last Admin: 02/20/17 17:22 Dose: 300 mg Heparin Sodium (Porcine) (Heparin) 5,000 units SC Q8 [facility] Last Admin: 02/21/17 05:40 Dose: 5,000 units Fluconazole (Diflucan Iv 100 Mg/50 Ml Ns) 50 mls @ 100 mls/hr IVPB Q24H [facility] Last Admin: 02/20/17 19:49 Dose: 100 mls/hr Piperacillin Sod/Tazobactam Sod (Zosyn 2.25 Gm Iv Premix) 2.25 gm in 50 mls @ 100 mls/hr IVPB Q8H [facility] Last Admin: 02/21/17 05:00 Dose: 100 mls/hr Insulin Aspart (Novolog) 0 unit SC ACHS [facility] PRN Reason: Protocol Last Admin: 02/21/17 07:39 Dose: Not Given Insulin Aspart (Novolog) 10 unit SC AC [facility] Last Admin: 02/21/17 07:58 Dose: 10 unit Insulin Glargine (Lantus) 30 unit SC HS [facility] Last Admin: 02/20/17 21:30 Dose: 30 u Levothyroxine Sodium (Synthroid) 25 mcg PO DAILY@0630 [facility] Last Admin: 02/21/17 05:40 Dose: 25 mcg Metoprolol Tartrate (Lopressor) 50 mg PO BID [facility] Last Admin: 02/20/17 17:22 Dose: 50 mg Ondansetron HCl (Zofran Inj) 4 mg IVP Q6 PRN PRN Reason: Nausea/Vomiting Rosuvastatin Calcium (Crestor) 10 mg PO [facility] Last Admin: 02/20/17 21:30 Dose: 10 mg Saccharomyces Boulardii (Florastor) 250 mg PO BID [facility] Last Admin: 02/20/17 17:22 Dose: 250 mg - Labs Labs: 02/21/17 06:15 02/21/17 06:15 PT 11.2 SECONDS (9.7-12.2) 02/17/17 06:31 INR 1.0 02/17/17 06:31 APTT 32 SECONDS (21-34) D 02/17/17 06:31 - Constitutional Appears: Non-toxic, No Acute Distress - Neurological Exam Neurological Exam: Alert - Psychiatric Exam Psychiatric exam: Normal Affect, Normal Mood - Skin Skin Exam: Dry. absent: Erythema - Additional Findings Additional findings: Left foot exam: DERMATOLOGIC: Left foot hyperkeratotic ulceration submet 1, no drainage, fibrous wund base, negative drainage, negative erythema, negative purulence. Left foot fourth digit thickened tissue dorsally, with central opening where incision and drainage was performed. There is no purulence remaining, no drainage, no erythema. Left 4th digit appears to be grossly edematous VASCULAR: DP/PT pulses 2/4, WHEEL [employer]ISHER<3 seconds, skin temperature is normal. There is localized edema to the left foot fourth digit. NEUROLOGIC: Protective sensation absent ORTHOPEDIC: Negative pain on palpation to the left lower extremity. 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 Assessment and Plan - Assessment and Plan (Free Text) Assessment: 56 y/o F with left foot chronic ulceration submet 1 ; s/p I&D of 4th digit abscess, resolving. Plan: Patient seen and evaluated Labs and vitals reviewed: WBC 7.2 (02/21); afebrile Patients left foot dressed with xeroform, betadine to fourth digit, DSD Patient to continue ambulating with surgical shoe as needed Wound culture- enterobacter, enterococcus, yeast Patient's LLE MRI is negative for OM Patient is to continue receiving IV antibiotics, as per ID recommendtions Pt to f/u in podiatry clinic after D/C Discussed patient with attending, Dr. Means Podiatry will continue to follow while in house
[2017-02-21] MEDS: Saccharomyces Boulardi 250 mg Cap PO SCH ×2 (09:48→17:28)
--- NOTE | 2017-02-21 16:48 | CP.PCM.PN ---
Subjective - Date & Time of Evaluation Date of Evaluation: 02/21/17 Time of Evaluation: 07:45 - Subjective Subjective: Hospitalist Note- Dr. Beatty's service The patient was seen and examined at bedside. She reports improved chest pain that is still present and reproducible on palpation. In addition, she reports dizziness whenever she gets up and feels as if she is going to fall. She reports vision changes with standing and a sense of intoxication. In addition, she complains of abdominal discomfort. The patient was observed to be drinking coffee which she was told could exacerbate her abdominal discomfort. She states that her left foot pain is also improving as it is being treated by podiatry. Objective - Vital Signs/Intake and Output Vital Signs (last 24 hours): Temp Pulse Resp BP Pulse Ox 97.9 F 81 20 126/68 97 02/21/17 07:55 02/21/17 07:55 02/21/17 07:55 02/21/17 09:48 02/21/17 07:55 Intake and Output: 02/21/17 02/21/17 06:59 18:59 Intake Total 290 Balance 290 - Medications Medications: Current Medications Acetaminophen (Tylenol 325mg Tab) 650 mg PO Q6 PRN PRN Reason: Fever >100.4 F Last Admin: 02/19/17 15:42 Dose: 650 mg Aspirin (Ecotrin) 81 mg PO DAILY [facility] Last Admin: 02/21/17 09:49 Dose: 81 mg Diphenhydramine HCl (Benadryl) 25 mg PO Q6 PRN PRN Reason: Itching / Pruritus Enalapril Maleate (Vasotec) 10 mg PO DAILY [facility] Last Admin: 02/21/17 09:48 Dose: 10 mg Fenofibrate (Tricor) 48 mg PO QPM [facility] Last Admin: 02/20/17 17:22 Dose: 48 mg Gabapentin (Neurontin) 300 mg PO TID [facility] Last Admin: 02/21/17 14:20 Dose: 300 mg Heparin Sodium (Porcine) (Heparin) 5,000 units SC Q8 [facility] Last Admin: 02/21/17 14:20 Dose: 5,000 units Fluconazole (Diflucan Iv 100 Mg/50 Ml Ns) 50 mls @ 100 mls/hr IVPB Q24H [facility] Last Admin: 02/20/17 19:49 Dose: 100 mls/hr Piperacillin Sod/Tazobactam Sod (Zosyn 2.25 Gm Iv Premix) 2.25 gm in 50 mls @ 100 mls/hr IVPB Q8H [facility] Last Admin: 02/21/17 12:10 Dose: 100 mls/hr Insulin Aspart (Novolog) 0 unit SC ACHS [facility] PRN Reason: Protocol Last Admin: 02/21/17 12:06 Dose: Not Given Insulin Aspart (Novolog) 10 unit SC AC [facility] Last Admin: 02/21/17 12:46 Dose: 10 unit Insulin Glargine (Lantus) 30 unit SC [facility] Last Admin: 02/20/17 21:30 Dose: 30 u Levothyroxine Sodium (Synthroid) 25 mcg PO DAILY@0630 [facility] Last Admin: 02/21/17 05:40 Dose: 25 mcg Metoprolol Tartrate (Lopressor) 50 mg PO BID [facility] Last Admin: 02/21/17 09:49 Dose: 50 mg Ondansetron HCl (Zofran Inj) 4 mg IVP Q6 PRN PRN Reason: Nausea/Vomiting Rosuvastatin Calcium (Crestor) 10 mg PO [facility] Last Admin: 02/20/17 21:30 Dose: 10 mg Saccharomyces Boulardii (Florastor) 250 mg PO BID [facility] Last Admin: 02/21/17 09:48 Dose: 250 mg - Labs Labs: 02/21/17 06:15 02/21/17 06:15 PT 11.2 SECONDS (9.7-12.2) 02/17/17 06:31 INR 1.0 02/17/17 06:31 APTT 32 SECONDS (21-34) D 02/17/17 06:31 - Constitutional Appears: Non-toxic, No Acute Distress - Head Exam Head Exam: ATRAUMATIC, NORMOCEPHALIC - Eye Exam Eye Exam: EOMI, Normal appearance, PERRL Pupil Exam: NORMAL ACCOMODATION, PERRL - ENT Exam ENT Exam: Mucous Membranes Moist, Normal Oropharynx - Neck Exam Neck Exam: Normal Inspection - Respiratory Exam Respiratory Exam: Clear to Ausculation Bilateral, NORMAL BREATHING PATTERN. absent: Rales, Rhonchi, Wheezes - Cardiovascular Exam Cardiovascular Exam: REGULAR RHYTHM, +S1, +S2. absent: Gallop, Rubs, Murmur - GI/Abdominal Exam GI & Abdominal Exam: Soft. absent: Distended, Guarding, Rigid, Tenderness - Extremities Exam Extremities Exam: Tenderness (left foot wound clean and dressed). absent: Normal Capillary Refill, Normal Inspection, Pedal Edema - Back Exam Back Exam: NORMAL INSPECTION. absent: rash noted, tenderness - Neurological Exam Neurological Exam: Alert, Awake, CN II-XII Intact, Oriented x3 - Psychiatric Exam Psychiatric exam: Normal Affect, Normal Mood - Skin Skin Exam: Dry, Intact, Normal Color, Warm Assessment and Plan - Assessment and Plan (Free Text) Plan: Chest pain * Cardiology (Dr. Garcia) on the case-->help appreciated * ASIA X 3 negative * Echocardiogram (02/17/17): within normal * Continue metoprolol 50 mg po bid * Continue aspirin 81 mg po daily * Continue enalapril 10 mg po daily * Crestor 10mg PO qHS * Will need an outpatient stress test per cardio note. * Recommended continuing stretching exercises and proper posture Diabetic Foot Ulcer * ID consult, Dr. Groves, help appreciated * Podiatry, Dr. 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 No evidence of acute osteomyelitis in the left foot. Skin ulceration and subcutaneous density and edema seen at the medial aspect of the distal left foot adjacent to the distal 1 st metatarsal bone and 1st toe. * MRI LE: no definite evidence of acute osteomyelitis. Heterogenous increased signal in soft tissue without evidence of discrete fluid or drainable abscess. Moderate degenerative and arthritis changes. * Changed to Zosyn 2.25 IV Q 8 hours (active since 02/16/17) in light of acute renal insufficiency * Stopped Vancomcyin in light of vancomycin trough and acute renal insufficiency * Florastor 250mg PO bid * f/u ID recs for outpatient antibiotics. Headache/ Dizziness * Denies today * Blood pressure was wnl today * CT head: negative [see full report] * Likely due to uncontrolled hypertension * orthostatic BP wnl * start meclazine 12.5mg TID prn Diabetes mellitus type 2 * History of noncompliance * a1c: 14.1 * Increase units of ISS as blood sugar is nearing * Continue accuchecks QAC and HS * Likely uncontrolled diabetes * [employer] referral * Endocrinology (Dr. Shafer) consult for further recommendations for diabetes management * increased Lantus to 30 units subq HS * continue novolog 10 units SC AC * continue Gabapentin 300mg PO tid for neuropathic symptoms secondary to uncontrolled diabetes * maintain euglycemia target 140-180 Hypertension * Controlled * History of noncompliance * Continue enalapril 10 mg po daily * Continue metoprolol 50 mg po bid * Monitor Hyperlipidemia * LDL:171, Cholestrol >325, TG: >525, HDL: 35 * Continue crestor 10 mg po hs * Continue fenofibrate 48 mg po hs Hypothyroidism * TSH within normal limits * Continue synthroid 25 mc po daily (home med) Electrolyte imbalances * Na, Cl, and K wnl today * replenish as needed Acute Renal insufficiency * Renal US (02/16/17): No significant or acute findings to account for/related to the clinical presentation * Stopped vancomycin in light of vancomycin trough and elevated Cr * continue to renal dose of Zosyn * Monitor BUN/Cr Prophylactic measures * Pepcid 20mg PO daily * Lovenox 30mg subq daily * Zofran 4 mg IVP q6h prn * Tylenol 650 mg po q6h pr Assessment and plan discussed with attending physician.
[2017-02-21] MEDS: Fluconazole IV 100mg/50 ml NS 50 ML IVPB SCH (21:09)
[2017-02-21] MEDS: (Lantus) Insulin Glargine, Recombinant SC SCH (21:30)
[2017-02-22 07:58] LABS: BASO # 0.1 K/uL (0.0-0.2); BASO % 0.7 % (0.0-2.0); EOS # 0.1 K/uL (0.0-0.7); EOS % 1.9 % (0.0-4.0); HEMATOCRIT 37.8 % (34.0-47.0); LYMPH # 2.6 K/uL (1.0-4.3); LYMPH % 33.7 % (20.0-40.0); MEAN CELL VOLUME 87.8 fL (81.0-99.0); MEAN CORPUSCULAR HGB CONC 33.1 g/dL (33.0-37.0); MEAN PLATELET VOLUME 9.4 fL (7.2-11.7); MONO # 0.5 K/uL (0.0-0.8); MONO % 6.1 % (0.0-10.0); NRBC % 0.1 % (0.0-2.0); WHITE BLOOD COUNT 7.6 K/uL (4.8-10.8)
[2017-02-22] MEDS: Fluconazole IV 100mg/50 ml NS 50 ML IVPB SCH (20:00)
[2017-02-22] MEDS: Piperacill/Tazo 2.25gm in Dex 2.25 GM/50 ML BAG IVPB SCH (21:06)
[2017-02-22] MEDS: (Lantus) Insulin Glargine, Recombinant SC SCH (21:09)
[2017-02-22] MEDS: (Novolog) Insulin Aspart, Recombinant 100 u/ml 10 ml vial SC SCH (22:12)
[2017-02-23] MEDS: Piperacill/Tazo 2.25gm in Dex 2.25 GM/50 ML BAG IVPB SCH ×2 (05:30→11:54)
[2017-02-23] MEDS: Levothyroxine 25 MCG TAB PO SCH (05:32)
[2017-02-23 07:30] LABS: BASO # 0.1 K/uL (0.0-0.2); BASO % 0.9 % (0.0-2.0); EOS # 0.1 K/uL (0.0-0.7); EOS % 2.1 % (0.0-4.0); HEMATOCRIT 34.8 % (34.0-47.0); LYMPH # 2.5 K/uL (1.0-4.3); LYMPH % 36.3 % (20.0-40.0); MEAN CELL VOLUME 87.4 fL (81.0-99.0); MEAN CORPUSCULAR HEMOGLOBIN 29.4 pg (27.0-31.0); MEAN CORPUSCULAR HGB CONC 33.7 g/dL (33.0-37.0); MEAN PLATELET VOLUME 9.2 fL (7.2-11.7); MONO # 0.4 K/uL (0.0-0.8); MONO % 6.1 % (0.0-10.0); NRBC % 0.1 % (0.0-2.0); RED CELL DISTRIBUTION WIDTH 12.9 % (11.5-14.5); WHITE BLOOD COUNT 6.9 K/uL (4.8-10.8)
[2017-02-23 07:47] LABS: POTASSIUM 4.4 mmol/L (3.6-5.2)
[2017-02-23 07:49] LABS: BILIRUBIN,TOTAL 0.5 mg/dL (0.2-1.3)
[2017-02-23 07:50] LABS: CALCIUM 8.5 mg/dl (8.6-10.4); TOTAL PROTEIN 6.4 g/dL (6.3-8.3)
[2017-02-23] MEDS: (Novolog) Insulin Aspart, Recombinant 100 u/ml 10 ml vial SC SCH ×4 (07:54→11:55)
[2017-02-23 08:10] VITALS: O2SAT 98
[2017-02-23] MEDS: Saccharomyces Boulardi 250 mg Cap PO SCH (10:24)
--- NOTE | 2017-02-23 12:24 | CP.PCM.PN ---
Subjective - Date & Time of Evaluation Date of Evaluation: 02/23/17 Time of Evaluation: 12:30 - Subjective Subjective: 56 y/o female patient was seen and evaluated at bedside this afternoon. Patient denies any current pain in her Left foot. No pedal complaints reported at this time. Left foot dressing appears to be C/D/I. Denies F/C/N/V/SOB/CP. Objective - Vital Signs/Intake and Output Vital Signs (last 24 hours): Temp Pulse Resp BP Pulse Ox 98.0 F 78 20 136/75 98 02/23/17 08:08 02/23/17 08:08 02/23/17 08:08 02/23/17 10:24 02/23/17 08:08 Intake and Output: 02/23/17 02/23/17 06:59 18:59 Intake Total 200 Balance 200 - Medications Medications: Current Medications Acetaminophen (Tylenol 325mg Tab) 650 mg PO Q6 PRN PRN Reason: Fever >100.4 F Last Admin: 02/19/17 15:42 Dose: 650 mg Aspirin (Ecotrin) 81 mg PO DAILY [facility] Last Admin: 02/23/17 10:23 Dose: 81 mg Diphenhydramine HCl (Benadryl) 25 mg PO Q6 PRN PRN Reason: Itching / Pruritus Enalapril Maleate (Vasotec) 10 mg PO DAILY [facility] Last Admin: 02/23/17 10:24 Dose: 10 mg Fenofibrate (Tricor) 48 mg PO QPM [facility] Last Admin: 02/21/17 17:29 Dose: 48 mg Gabapentin (Neurontin) 300 mg PO TID [facility] Last Admin: 02/23/17 10:23 Dose: 300 mg Heparin Sodium (Porcine) (Heparin) 5,000 units SC Q8 [facility] Last Admin: 02/23/17 05:32 Dose: 5,000 units Fluconazole (Diflucan Iv 100 Mg/50 Ml Ns) 50 mls @ 100 mls/hr IVPB Q24H [facility] Last Admin: 02/22/17 20:00 Dose: 100 mls/hr Piperacillin Sod/Tazobactam Sod (Zosyn 2.25 Gm Iv Premix) 2.25 gm in 50 mls @ 100 mls/hr IVPB Q8H [facility] Last Admin: 02/23/17 11:54 Dose: 100 mls/hr Insulin Aspart (Novolog) 0 unit SC ACHS [facility] PRN Reason: Protocol Last Admin: 02/23/17 11:41 Dose: Not Given Insulin Aspart (Novolog) 10 unit SC AC [facility] Last Admin: 02/23/17 11:55 Dose: 10 unit Insulin Glargine (Lantus) 30 unit SC HS [facility] Last Admin: 02/22/17 21:09 Dose: 30 u Levothyroxine Sodium (Synthroid) 25 mcg PO DAILY@0630 [facility] Last Admin: 02/23/17 05:32 Dose: 25 mcg Meclizine HCl (Antivert) 12.5 mg PO TID PRN PRN Reason: Dizziness Metoprolol Tartrate (Lopressor) 50 mg PO BID [facility] Last Admin: 02/23/17 10:24 Dose: 50 mg Ondansetron HCl (Zofran Inj) 4 mg IVP Q6 PRN PRN Reason: Nausea/Vomiting Rosuvastatin Calcium (Crestor) 10 mg PO [facility] Last Admin: 02/22/17 21:07 Dose: 10 mg Saccharomyces Boulardii (Florastor) 250 mg PO BID [facility] Last Admin: 02/23/17 10:24 Dose: 250 mg - Labs Labs: 02/23/17 07:09 02/23/17 07:09 PT 11.2 SECONDS (9.7-12.2) 02/17/17 06:31 INR 1.0 02/17/17 06:31 APTT 32 SECONDS (21-34) D 02/17/17 06:31 - Constitutional Appears: Non-toxic, No Acute Distress - Neurological Exam Neurological Exam: Alert, Awake, Oriented x3 - Psychiatric Exam Psychiatric exam: Normal Affect, Normal Mood - Skin Skin Exam: Dry, Normal Color, Warm. absent: Erythema - Additional Findings Additional findings: Left foot exam: DERMATOLOGIC: Left foot hyperkeratotic ulceration submet 1, no drainage, fibrous wund base, negative drainage, negative erythema, negative purulence. Left foot fourth digit thickened tissue dorsally, with central opening where incision and drainage was performed. There is no purulence remaining, no drainage, no erythema. Left 4th digit appears to be grossly edematous VASCULAR: DP/PT pulses 2/4, DIGITAL COLOR PRESS OPERATOR<3 seconds, skin temperature is normal. There is localized edema to the left foot fourth digit. NEUROLOGIC: Protective sensation absent ORTHOPEDIC: Negative pain on palpation to the left lower extremity. 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 Assessment and Plan - Assessment and Plan (Free Text) Assessment: 56 y/o F with left foot chronic ulceration submet 1 ; s/p I&D of 4th digit abscess, resolved. Plan: Patient seen and evaluated Labs and vitals reviewed: WBC 6.9 (02/23; afebrile Patients left foot dressed with betadine DSD Patient to continue ambulating with surgical shoe to the Left foot and with rolling walker. Patient's LLE MRI is negative for OM Patient is currently stable for discharge from podiatric perspective Dressing change instructions for home: * change Left foot dressing daily and apply betadine to 4th toe and ulcer on bottom of foot. Apply gauze and kerlix and secure dressing with tape. * continue using surgical shoe to the left foot Patient to f/u in the [facility] outpatient podiatry clinic after D/C Discussed patient with attending, Dr. Means Podiatry will continue to follow while in house
--- NOTE | 2017-02-23 16:53 | CP.PCM.DIS ---
<Jimmie Logan - Last Filed: 02/23/17 16:59> Provider - Provider Date of Admission: 02/16/17 03:35 Attending physician: Naresh Beatty DO Consults: 1. Endocrine- Cam 2. ID- Yaneli 3. Pod-Means Time Spent in preparation of Discharge (in minutes): 45 Hospital Course - Lab Results Lab Results: Micro Results 02/20/17 22:42 Nose MRSA Culture - Final MRSA NOT DETECTED 02/17/17 Unknown Foot - Left Gram Stain - Final 02/17/17 Unknown Foot - Left Wound Culture - Final Enterobacter Cloacae Ssp Cloac Enterococcus Faecalis Patrizia Albicans 02/16/17 19:30 Foot - Left Gram Stain - Final 02/16/17 19:30 Foot - Left Wound Culture - Final Enterobacter Cloacae Ssp Cloac 02/16/17 15:30 Naris MRSA Culture (Admit) - Final MRSA NOT DETECTED Most Recent Lab Values WBC 6.9 K/uL (4.8-10.8) 02/23/17 07:09 RBC 3.98 Mil/uL (3.80-5.20) 02/23/17 07:09 Hgb 11.7 g/dL (11.0-16.0) 02/23/17 07:09 Hct 34.8 % (34.0-47.0) 02/23/17 07:09 MCV 87.4 fL (81.0-99.0) 02/23/17 07:09 MCH 29.4 pg (27.0-31.0) 02/23/17 07:09 MCHC 33.7 g/dL (33.0-37.0) 02/23/17 07:09 RDW 12.9 % (11.5-14.5) 02/23/17 07:09 Plt Count 187 K/uL (130-400) 02/23/17 07:09 MPV 9.2 fL (7.2-11.7) 02/23/17 07:09 Neut % (Auto) 54.6 % (50.0-75.0) 02/23/17 07:09 Lymph % (Auto) 36.3 % (20.0-40.0) 02/23/17 07:09 Miller % (Auto) 6.1 % (0.0-10.0) 02/23/17 07:09 Eos % (Auto) 2.1 % (0.0-4.0) 02/23/17 07:09 Baso % (Auto) 0.9 % (0.0-2.0) 02/23/17 07:09 Neut # 3.8 K/uL (1.8-7.0) 02/23/17 07:09 Lymph # 2.5 K/uL (1.0-4.3) 02/23/17 07:09 Miller # 0.4 K/uL (0.0-0.8) 02/23/17 07:09 Eos # 0.1 K/uL (0.0-0.7) 02/23/17 07:09 Baso # 0.1 K/uL (0.0-0.2) 02/23/17 07:09 PT 11.2 SECONDS (9.7-12.2) 02/17/17 06:31 INR 1.0 02/17/17 06:31 APTT 32 SECONDS (21-34) D 02/17/17 06:31 pO2 26 mm/Hg (30-55) L 02/15/17 23:52 VBG pH 7.34 (7.32-7.43) 02/15/17 23:52 VBG pCO2 58 mmHg (40-60) 02/15/17 23:52 VBG HCO3 26.5 mmol/L 02/15/17 23:52 VBG Total CO2 33.1 mmol/L (22-28) H 02/15/17 23:52 VBG O2 Sat (Calc) 53.6 % (40-65) 02/15/17 23:52 VBG Base Excess 3.9 mmol/L (0.0-2.0) H 02/15/17 23:52 VBG Potassium 4.2 mmol/L (3.6-5.2) 02/15/17 23:52 Sodium 135.0 mmol/l (132-148) 02/15/17 23:52 Chloride 98.0 mmol/L (98-107) 02/15/17 23:52 Glucose 513 mg/dl (65-105) H* 02/15/17 23:52 Lactate 1.5 mmol/L (0.7-2.1) 02/15/17 23:52 Crit Value Called To Arina joyner 02/15/17 23:52 Crit Value Called By Karissa aranda 02/15/17 23:52 Crit Value Read Back Y 02/15/17 23:52 Blood Gas Notified Time 1 02/15/17 23:52 Sodium 136 mmol/L (132-148) 02/23/17 07:09 Potassium 4.4 mmol/L (3.6-5.2) 02/23/17 07:09 Chloride 102 mmol/L (98-107) 02/23/17 07:09 Carbon Dioxide 26 mmol/L (22-30) 02/23/17 07:09 Anion Gap 12 (10-20) 02/23/17 07:09 BUN 25 mg/dL (7-17) H 02/23/17 07:09 Creatinine 1.8 MG/DL (0.7-1.2) H 02/23/17 07:09 Est GFR ( Amer) 35 02/23/17 07:09 Est GFR (Non-Af Amer) 29 02/23/17 07:09 POC Glucose (mg/dL) 263 mg/dL (65-110) H 02/22/17 21:58 Random Glucose 228 mg/dL (65-105) H 02/23/17 07:09 Hemoglobin A1c 14.1 % (4.2-6.5) H 02/16/17 05:27 Calcium 8.5 mg/dl (8.6-10.4) L 02/23/17 07:09 Phosphorus 4.5 mg/dL (2.5-4.5) 02/19/17 06:25 Magnesium 1.7 mg/dL (1.6-2.3) 02/19/17 06:25 Total Bilirubin 0.5 mg/dL (0.2-1.3) 02/23/17 07:09 AST 24 U/L (14-36) 02/23/17 07:09 ALT 23 U/L (9-52) 02/23/17 07:09 Alkaline Phosphatase 68 U/L (38-126) 02/23/17 07:09 Total Creatine Kinase 49 U/L (30-135) 02/18/17 06:18 CK-MB (Mass) 0.62 ng/mL (0.0-3.38) 02/18/17 06:18 Troponin I < 0.0120 ng/mL (0.00-0.120) 02/17/17 01:20 Troponin I, Quant < 0.0120 ng/mL (0.00-0.120) 02/18/17 06:18 Total Protein 6.4 g/dL (6.3-8.3) 02/23/17 07:09 Albumin 3.2 g/dL (3.5-5.0) L 02/23/17 07:09 Globulin 3.2 gm/dL (2.2-3.9) 02/23/17 07:09 Albumin/Globulin Ratio 1.0 (1.0-2.1) 02/23/17 07:09 Triglycerides > 525 mg/dL (0-149) H 02/16/17 05:27 Cholesterol > 325 mg/dL (0-199) H 02/16/17 05:27 LDL Cholesterol Direct 171 mg/dL (0-129) H 02/16/17 05:27 HDL Cholesterol 37 mg/dL (30-70) 02/16/17 05:27 Thyroxine (T4) 7.32 ug/dL (5.5-11.0) 02/16/17 05:27 TSH 3rd Generation 1.69 mIU/L (0.46-4.68) 02/16/17 05:27 Venous Blood Potassium 4.2 mmol/L (3.6-5.2) 02/15/17 23:52 Urine HCG, Qual Negative (NEGATIVE) 02/15/17 23:30 Vancomycin Trough 30.4 ug/mL (5.0-10.0) H 02/18/17 06:18 Random Vancomycin 14.84 ug/mL 02/19/17 06:25 Serum Ketones Negative (NEGATIVE) 02/15/17 23:30 - Hospital Course Hospital Course: Admit date 02/16/17 Discharge date 02/23/17 Attending: Dr. Beatty Consults. 1. Yaneli 2. Miguelangel 3. Cam Procedures- I/D 4th digit abscess Complications - none Discharge dx: 1. Chest pain 2. Diabetic foot ulcer 3. urine yeast 4. headache 5. DM 2 6. HTN 7. HLD 8. Hypothyroidism 8. Acute kidney injury HPI: see h/p Labs: see lab data Hospital course Chest pain * Cardiology (Dr. Garcia) on the case-->help appreciated * ASIA X 3 negative * Echocardiogram (02/17/17): within normal - metoprolol 50 mg po bid * aspirin 81 mg po daily * enalapril 10 mg po daily * 10mg PO qHS * Will need an outpatient stress test per cardio note. * Recommended continuing stretching exercises and proper posture Diabetic Foot Ulcer * ID consult, Dr. Groves, help appreciated * Podiatry, Dr. Gideon Means, help appreciated * given IV vancomycin and zosyn * Podiatry evaluated left LE, dressed with betadine, reccomended continuing vancomycin + zosyn, wound cultures were drawn, podiatry monitored the patient * No leukocytosis, afebrile * CT LE (02/16/17): cortical irregularity and periosteal thickening seen at the distal 1st metatarsal bone likely represent chronic osteomoelytis. No evidence of acute osteomyelitis in the left foot. Skin ulceration and subcutaneous density and edema seen at the medial aspect of the distal left foot adjacent to the distal 1 st metatarsal bone and 1st toe. * MRI LE: no definite evidence of acute osteomyelitis. Heterogenous increased signal in soft tissue without evidence of discrete fluid or drainable abscess. Moderate degenerative and arthritis changes. * Changed to Zosyn 2.25 IV Q 8 hours (active since 02/16/17) in light of acute renal insufficiency * Stopped Vancomcyin in light of vancomycin trough and acute renal insufficiency * Florastor 250mg PO bid -given augmentin for outpt for 4 more days Headache/ Dizziness * Denies today on day of discharge * Blood pressure was wnl today * CT head: negative [see full report] * Likely due to uncontrolled hypertension * orthostatic BP wnl * meclizine 12.5mg TID prn Diabetes mellitus type 2 * History of noncompliance * a1c: 14.1 * Increased units of ISS * accuchecks QAC and HS * Likely uncontrolled diabetes * Management Accounts Manager referral * Endocrinology (Dr. Shafer) consult for further recommendations for diabetes management * Lantus to 30 units subq HS * novolog 10 units SC AC * Gabapentin 300mg PO tid for neuropathic symptoms secondary to uncontrolled diabetes * maintain euglycemia target 140-180 Hypertension * Controlled * History of noncompliance * enalapril 10 mg po daily * metoprolol 50 mg po bid * Monitor Hyperlipidemia * LDL:171, Cholestrol >325, TG: >525, HDL: 35 * Crestor 10 mg po hs * fenofibrate 48 mg po hs Hypothyroidism * TSH within normal limits * Continue synthroid 25 mc po daily (home med) Electrolyte imbalances * Na, Cl, and K wnl today * replenished as needed Acute Renal insufficiency * Renal US (02/16/17): No significant or acute findings to account for/related to the clinical presentation * Stopped vancomycin in light of vancomycin trough and elevated Cr * continue to monitor renal dose of Zosyn * Monitor BUN/Cr Prophylactic measures * Pepcid 20mg PO daily * Lovenox 30mg subq daily * Zofran 4 mg IVP q6h prn * Tylenol 650 mg po q6h pr On day of discharge pt was feeling much better and rx was given for rolling walker. Discharge meds 1. augmentin 875/125 1 tab bid x 4 days 2. asa 81 daily 3. neurontin 300 tid 4. simvastatin 20 daily 5. lopressor 50 bid 6. meclizine 12.5 tid prn dizziness 7. lisinopril 10 daily 8. synthroid 25 mcg daily 9. lantus 30 units hs 10. novolog 10 units ac Discharge instructions pt is medically stable for discharge. please return if condition worsens. please follow up at [facility] downstairs in basement. - Date & Time of H&P Date of H&P: 02/16/17 Time of H&P: 05:28 Discharge Exam - Head Exam Head Exam: ATRAUMATIC, NORMOCEPHALIC - Eye Exam Eye Exam: EOMI - ENT Exam ENT Exam: Mucous Membranes Moist - Neck Exam Neck exam: Full Rom, Normal Inspection - Respiratory Exam Respiratory Exam: NORMAL BREATHING PATTERN, UNREMARKABLE - Cardiovascular Exam Cardiovascular Exam: +S1, +S2 - GI/Abdominal Exam GI & Abdominal Exam: Normal Bowel Sounds - Extremities Exam Additional comments: Dressing gauze left foot neurovascular intact, movement intact - Neurological Exam Neurological exam: Alert, CN II-XII Intact, Oriented x3 - Psychiatric Exam Psychiatric exam: Normal Affect, Normal Mood - Skin Skin Exam: Dry, Intact, Normal Color, Warm Discharge Plan - Discharge Medications Prescriptions: Amoxicillin/Clavulanate [Augmentin 875 MG-125 MG] 1 tab PO BID #8 tab Gabapentin [Neurontin] 300 mg PO TID #90 cap Insulin Aspart, Recombinant [Novolog] 10 unit SC AC #1 unit Insulin Glargine, Recombina [Lantus] 30 unit SC HS #1 unit Levothyroxine [Synthroid] 25 mcg PO DAILY@0630 #30 tab Lisinopril [Prinivil] 10 mg PO DAILY #30 tablet Meclizine [Antivert] 12.5 mg PO TID PRN #90 tab PRN Reason: Dizziness Metoprolol Tartrate [Lopressor] 50 mg PO BID #60 tab Simvastatin 20 mg PO DAILY #30 tablet - Follow Up Plan Condition: STABLE Disposition: HOME/ ROUTINE Instructions: Metoprolol (By mouth), Lisinopril (By mouth), Levothyroxine (By mouth), Meclizine (By mouth), Amoxicillin/Clavulanate Potassium (By mouth), Gabapentin (By mouth), Simvastatin (By mouth), Insulin Aspart, Recombinant (By injection), Insulin Glargine (By injection), Diabetic Foot Care (DC), Meal Planning with Diabetes Exchanges (DC), Diabetic Foot Ulcers (DC), Diabetic Hyperglycemia (DC) Referrals: Rosa Barker MD [Staff Provider] - <Naresh Beatty - Last Filed: 02/24/17 08:11> Provider - Provider Date of Admission: 02/16/17 03:35 Attending physician: Naresh Beatty DO Hospital Course - Lab Results Lab Results: Micro Results 02/20/17 22:42 Nose MRSA Culture - Final MRSA NOT DETECTED 02/17/17 Unknown Foot - Left Gram Stain - Final 02/17/17 Unknown Foot - Left Wound Culture - Final Enterobacter Cloacae Ssp Cloac Enterococcus Faecalis Patrizia Albicans 02/16/17 19:30 Foot - Left Gram Stain - Final 02/16/17 19:30 Foot - Left Wound Culture - Final Enterobacter Cloacae Ssp Cloac 02/16/17 15:30 Naris MRSA Culture (Admit) - Final MRSA NOT DETECTED Most Recent Lab Values WBC 6.9 K/uL (4.8-10.8) 02/23/17 07:09 RBC 3.98 Mil/uL (3.80-5.20) 02/23/17 07:09 Hgb 11.7 g/dL (11.0-16.0) 02/23/17 07:09 Hct 34.8 % (34.0-47.0) 02/23/17 07:09 MCV 87.4 fL (81.0-99.0) 02/23/17 07:09 MCH 29.4 pg (27.0-31.0) 02/23/17 07:09 MCHC 33.7 g/dL (33.0-37.0) 02/23/17 07:09 RDW 12.9 % (11.5-14.5) 02/23/17 07:09 Plt Count 187 K/uL (130-400) 02/23/17 07:09 MPV 9.2 fL (7.2-11.7) 02/23/17 07:09 Neut % (Auto) 54.6 % (50.0-75.0) 02/23/17 07:09 Lymph % (Auto) 36.3 % (20.0-40.0) 02/23/17 07:09 Miller % (Auto) 6.1 % (0.0-10.0) 02/23/17 07:09 Eos % (Auto) 2.1 % (0.0-4.0) 02/23/17 07:09 Baso % (Auto) 0.9 % (0.0-2.0) 02/23/17 07:09 Neut # 3.8 K/uL (1.8-7.0) 02/23/17 07:09 Lymph # 2.5 K/uL (1.0-4.3) 02/23/17 07:09 Miller # 0.4 K/uL (0.0-0.8) 02/23/17 07:09 Eos # 0.1 K/uL (0.0-0.7) 02/23/17 07:09 Baso # 0.1 K/uL (0.0-0.2) 02/23/17 07:09 PT 11.2 SECONDS (9.7-12.2) 02/17/17 06:31 INR 1.0 02/17/17 06:31 APTT 32 SECONDS (21-34) D 02/17/17 06:31 pO2 26 mm/Hg (30-55) L 02/15/17 23:52 VBG pH 7.34 (7.32-7.43) 02/15/17 23:52 VBG pCO2 58 mmHg (40-60) 02/15/17 23:52 VBG HCO3 26.5 mmol/L 02/15/17 23:52 VBG Total CO2 33.1 mmol/L (22-28) H 02/15/17 23:52 VBG O2 Sat (Calc) 53.6 % (40-65) 02/15/17 23:52 VBG Base Excess 3.9 mmol/L (0.0-2.0) H 02/15/17 23:52 VBG Potassium 4.2 mmol/L (3.6-5.2) 02/15/17 23:52 Sodium 135.0 mmol/l (132-148) 02/15/17 23:52 Chloride 98.0 mmol/L (98-107) 02/15/17 23:52 Glucose 513 mg/dl (65-105) H* 02/15/17 23:52 Lactate 1.5 mmol/L (0.7-2.1) 02/15/17 23:52 Crit Value Called To Arina joyner 02/15/17 23:52 Crit Value Called By Karissa aranda 02/15/17 23:52 Crit Value Read Back Y 02/15/17 23:52 Blood Gas Notified Time 1 02/15/17 23:52 Sodium 136 mmol/L (132-148) 02/23/17 07:09 Potassium 4.4 mmol/L (3.6-5.2) 02/23/17 07:09 Chloride 102 mmol/L (98-107) 02/23/17 07:09 Carbon Dioxide 26 mmol/L (22-30) 02/23/17 07:09 Anion Gap 12 (10-20) 02/23/17 07:09 BUN 25 mg/dL (7-17) H 02/23/17 07:09 Creatinine 1.8 MG/DL (0.7-1.2) H 02/23/17 07:09 Est GFR ( Amer) 35 02/23/17 07:09 Est GFR (Non-Af Amer) 29 02/23/17 07:09 POC Glucose (mg/dL) 263 mg/dL (65-110) H 02/22/17 21:58 Random Glucose 228 mg/dL (65-105) H 02/23/17 07:09 Hemoglobin A1c 14.1 % (4.2-6.5) H 02/16/17 05:27 Calcium 8.5 mg/dl (8.6-10.4) L 02/23/17 07:09 Phosphorus 4.5 mg/dL (2.5-4.5) 02/19/17 06:25 Magnesium 1.7 mg/dL (1.6-2.3) 02/19/17 06:25 Total Bilirubin 0.5 mg/dL (0.2-1.3) 02/23/17 07:09 AST 24 U/L (14-36) 02/23/17 07:09 ALT 23 U/L (9-52) 02/23/17 07:09 Alkaline Phosphatase 68 U/L (38-126) 02/23/17 07:09 Total Creatine Kinase 49 U/L (30-135) 02/18/17 06:18 CK-MB (Mass) 0.62 ng/mL (0.0-3.38) 02/18/17 06:18 Troponin I < 0.0120 ng/mL (0.00-0.120) 02/17/17 01:20 Troponin I, Quant < 0.0120 ng/mL (0.00-0.120) 02/18/17 06:18 Total Protein 6.4 g/dL (6.3-8.3) 02/23/17 07:09 Albumin 3.2 g/dL (3.5-5.0) L 02/23/17 07:09 Globulin 3.2 gm/dL (2.2-3.9) 02/23/17 07:09 Albumin/Globulin Ratio 1.0 (1.0-2.1) 02/23/17 07:09 Triglycerides > 525 mg/dL (0-149) H 02/16/17 05:27 Cholesterol > 325 mg/dL (0-199) H 02/16/17 05:27 LDL Cholesterol Direct 171 mg/dL (0-129) H 02/16/17 05:27 HDL Cholesterol 37 mg/dL (30-70) 02/16/17 05:27 Thyroxine (T4) 7.32 ug/dL (5.5-11.0) 02/16/17 05:27 TSH 3rd Generation 1.69 mIU/L (0.46-4.68) 02/16/17 05:27 Venous Blood Potassium 4.2 mmol/L (3.6-5.2) 02/15/17 23:52 Urine HCG, Qual Negative (NEGATIVE) 02/15/17 23:30 Vancomycin Trough 30.4 ug/mL (5.0-10.0) H 02/18/17 06:18 Random Vancomycin 14.84 ug/mL 02/19/17 06:25 Serum Ketones Negative (NEGATIVE) 02/15/17 23:30 Attending/Attestation - Attestation I have personally seen and examined this patient.: Yes I have fully participated in the care of the patient.: Yes I have reviewed all pertinent clinical information, including history, physical exam and plan: Yes Notes (Text): Medical attending: Patient was seen and examined by me, agrees the above note by electromedical equipment repairer. The patient will need to follow-up at the [facility]. She was given additional oral and anti-biotics, as well as additional tape dressing, kerlix gauze was for changing of her wounds. Also she needs medication for her DM We have had to use the translation service as she speaks minimal Azerbaijani and her family speaks no Azerbaijani. thank you Naresh Beatty
[2017-02-23] MEDS ORDERED: Pneumococcal 23-Valent Vaccine IM ONE (17:46)
[2017-02-23 18:23] VITALS: BP 153/80; PULSE 74; TEMP 98
--- NOTE | 2017-03-27 08:04 | CARD ---
APPROVED REPORT EKG Measurement Heart [id number] <Conclusion> Normal sinus rhythm Nonspecific T wave abnormality Prolonged QT Abnormal ECG
== END 2017-02-23 18:30 | disposition home or self-care (01) | DRG 565 ==
LOC: C.ER 22:10 → C.9E 02-16 03:35 → C.9I 02-16 06:13 → C.3T 02-20 22:52
PROVIDERS: ADMIT Hospitalist; ATTEND Hospitalist
PROC: 0H9NXZX Drainage of Left Foot Skin, External Approach, Diagnostic (ICD-10-PCS; principal; 2017-02-17)
PROC: 0JBR0ZZ Excision of Left Foot Subcutaneous Tissue and Fascia, Open Approach (ICD-10-PCS; 2017-02-17)
DX: E11.621 Type 2 diabetes mellitus with foot ulcer (principal); M86.172 Other acute osteomyelitis, left ankle and foot; E11.00 Type 2 diabetes mellitus with hyperosmolarity without nonketotic hyperglycemic-hyperosmolar coma (NKHHC); N17.9 Acute kidney failure, unspecified; E11.42 Type 2 diabetes mellitus with diabetic polyneuropathy; E87.1 Hypo-osmolality and hyponatremia; B37.49 Other urogenital candidiasis; E11.65 Type 2 diabetes mellitus with hyperglycemia; L97.529 Non-pressure chronic ulcer of other part of left foot with unspecified severity; E86.0 Dehydration; M86.672 Other chronic osteomyelitis, left ankle and foot; E11.69 Type 2 diabetes mellitus with other specified complication; I10 Essential (primary) hypertension; E78.5 Hyperlipidemia, unspecified; E03.9 Hypothyroidism, unspecified; R07.9 Chest pain, unspecified; R51 Headache; R42 Dizziness and giddiness; B95.2 Enterococcus as the cause of diseases classified elsewhere; B96.89 Other specified bacterial agents as the cause of diseases classified elsewhere; Z91.14 Patient's other noncompliance with medication regimen; Z87.891 Personal history of nicotine dependence; Z79.4 Long term (current) use of insulin

== ENCOUNTER 2017-02-27 13:57 | Inpatient (IN) | payer OTHER ==
[2017-02-27] MEDS ORDERED: Sodium Chloride 0.9% 500 ML IV ONE (14:32)
--- NOTE | 2017-02-27 14:45 | C.PDOC ---
History Of Present Illness <Irina Mathis PA-C - Last Filed: 02/27/17 17:59> <Arina Sullivan - Last Filed: 02/27/17 19:27> 56 y/o female presents to the ED with complains of epigastric abdominal pain associated with nausea and vomiting. Pt reports constant pain and 3 episodes of vomiting. Denies fever, chest pain, difficulty breathing, diarrhea, urinary symptoms, bowel changes or any other complaints. Pt with history of numerous abdominal surgeries, 1 involving suprapubic area and vagina, patient unsure if had hysterectomy. (Irina Mathis PA-C) History Per: Patient History/Exam Limitations: no limitations Onset/Duration Of Symptoms: Hrs, Persistent Current Symptoms Are (Timing): Still Present Severity: Moderate Location Of Pain/Discomfort: Epigastric Radiation Of Pain To:: None Quality Of Discomfort: "Pain" Associated Symptoms: Nausea, Vomiting. denies: Diarrhea, Back Pain, Chest Pain , Constipation, Urinary Symptoms Alleviating Factors: None Recent travel outside of the [place]: No <Irina Mathis PA-C - Last Filed: 02/27/17 17:59> <Arina Sullivan - Last Filed: 02/27/17 19:27> Time Seen by Provider: 02/27/17 14:08 Chief Complaint (Nursing): Abdominal Pain Past Medical History Reviewed: Historical Data, Nursing Documentation, Vital Signs - Medical History PMH: HTN, Hypercholesterolemia Family History: States: Unknown Family Hx - Social History Hx Alcohol Use: No Hx Substance Use: No - Immunization History Hx Tetanus Toxoid Vaccination: No Hx Influenza Vaccination: No Hx Pneumococcal Vaccination: No <Irina Mathis PA-C - Last Filed: 02/27/17 17:59> Review Of Systems Except As Marked, All Systems Reviewed And Found Negative. Constitutional: Negative for: Fever, Chills Cardiovascular: Negative for: Chest Pain Respiratory: Negative for: Shortness of Breath Gastrointestinal: Positive for: Nausea, Vomiting, Abdominal Pain. Negative for : Diarrhea, Constipation Genitourinary: Negative for: Dysuria, Frequency, Hematuria, Vaginal Bleeding Musculoskeletal: Negative for: Back Pain <Irina Mathis PA-C - Last Filed: 02/27/17 17:59> Physical Exam - Physical Exam Appears: Non-toxic, In Acute Distress (mild painful discomfort) Skin: Warm, Dry, No Rash Head: Atraumatic, Normacephalic Oral Mucosa: Dry Neck: Normal, Normal ROM, Supple Chest: Symmetrical Cardiovascular: Rhythm Regular, No Murmur Respiratory: Normal Breath Sounds, No Rales, No Rhonchi, No Wheezing Gastrointestinal/Abdominal: Normal Exam, Soft, Tenderness (diffuse), No Guarding , No Rebound Extremity: Normal ROM Extremity: Bilateral: Atraumatic Neurological/Psych: Oriented x3, Normal Speech <Irina Mathis PA-C - Last Filed: 02/27/17 17:59> ED Course And Treatment - Laboratory Results Result Diagrams: 02/27/17 14:48 02/27/17 14:48 O2 Sat by Pulse Oximetry: 98 (room air) Pulse Ox Interpretation: Normal Progress Note: Plan: CT abd, EKG, labs, pepcid, morphine, zofran, IV fluids, UA <Irina Mathis PA-C - Last Filed: 02/27/17 17:59> - Laboratory Results Result Diagrams: 02/27/17 14:48 02/27/17 14:48 <Arina Sullivan - Last Filed: 02/27/17 19:27> ED OBSERVATION Time of observation admission: 14:30 <Irina Mathis PA-C - Last Filed: 02/27/17 17:59> <Arina Sullivan - Last Filed: 02/27/17 19:27> - Observation admission statement Patient is being placed in observation because:: Abdominal pain and the patient has numerous abdominal surgeries in the past. ( Irina Mathis PA-C) - Goals of Observation Goals of observation are:: To monitor patient's signs, symptoms and response to treatment. (Irina Mathis PA-C) - Progress Note Progress Note: 02/27/17 16:53 Labs reviewed. WBC is nl, K 5.8, Bun 47 / creat 2.3 (patient's last admission, she was noted to have renal insufficiency creat 1.7). CT A/P w/ po and IV contrast was changed to PO contrast only. On re-evaluation, patient is laying in bed comfortably with reports of improvement of pain. On exam, abdomen remains soft and nontender, with no guarding and no rebound. Tolerating po contrast. 02/27/17 17:56 On re-evaluation, patient feeling much improved. Returned from CT with results still pending. On re-evaluation, patient is laying in bed comfortably, abdomen remains soft and mild L sided and lower abdominal tenderness, with no guarding and no rebound. Given kayexalate po. Case endorsed to Dr. Sullivan pending CT results and disposition. 02/27/17 17:59 (Irina Mathis PA-C) Disposition - Disposition Disposition Time: 14:30 (Pt placed in ED observation. Case endorsed to Dr. Sullivan pending CT results) <Irina Mathis PA-C - Last Filed: 02/27/17 17:59> Discussed With DrElmo: Ernesto Hi Comment: accepted the pt on his service and took over the care at 7:26 PM Doctor Will See Patient In The: ED Counseled Patient/Family Regarding: Studies Performed, Diagnosis - POA Present On Arrival: Poor Glycemic Control <Arina Sullivan - Last Filed: 02/27/17 19:27> - Disposition Disposition: HOSPITALIZED Condition: FAIR - Clinical Impression Clinical Impression: Abdominal pain, Vomiting, Small bowel obstruction - PA / [employer] / Resident Statement MD/DO has reviewed & agrees with the documentation as recorded. - Scribe Statement The provider has reviewed the documentation as recorded by the Scribe <Irina Mathis PA-C - Last Filed: 02/27/17 17:59> <Arina Sullivan - Last Filed: 02/27/17 19:27> - Scribe Statement Eric Osborn All medical record entries made by the Scribe were at my direction and personally dictated by me. I have reviewed the chart and agree that the record accurately reflects my personal performance of the history, physical exam, medical decision making, and the department course for this patient. I have also personally directed, reviewed, and agree with the discharge instructions and disposition. (Irina Mathis PA-C) Decision To Admit <Irina Mathis PA-C - Last Filed: 02/27/17 17:59> - Pt Status Changed To: Hospital Disposition Of: Inpatient - Admit Certification Admit to Inpatient:: After my assessment, the patient will require hospitalization for at least two midnights. This is because of the severity of symptoms shown, intensity of services needed, and/or the medical risk in this patient being treated as an outpatient. - InPatient: Physician Admission Certification:: After my assessment, the patient will require hospitalization for at least two midnights. This is because of the severity of symptoms shown, intensity of services needed, and/or the medical risk in this patient being treated as an outpatient. - . Bed Request Type: Regular Admitting Physician: Ernesto Hi <Arina Sullivan - Last Filed: 02/27/17 19:27> - . Patient Diagnosis: Abdominal pain, Vomiting, Small bowel obstruction
[2017-02-27 14:52] LABS: BASO # 0.1 K/uL (0.0-0.2); BASO % 1.2 % (0.0-2.0); EOS # 0.1 K/uL (0.0-0.7); EOS % 1.1 % (0.0-4.0); HEMATOCRIT 38.5 % (34.0-47.0); LYMPH # 2.9 K/uL (1.0-4.3); LYMPH % 26.6 % (20.0-40.0); MEAN CELL VOLUME 87.8 fL (81.0-99.0); MEAN CORPUSCULAR HEMOGLOBIN 29.1 pg (27.0-31.0); MEAN CORPUSCULAR HGB CONC 33.1 g/dL (33.0-37.0); MEAN PLATELET VOLUME 8.8 fL (7.2-11.7); MONO # 0.8 K/uL (0.0-0.8); MONO % 6.9 % (0.0-10.0); WHITE BLOOD COUNT 10.8 K/uL (4.8-10.8)
[2017-02-27] MEDS ORDERED: Iohexol 240 (50 ml) PO ONE (14:54)
[2017-02-27] MEDS ORDERED: Sodium Chloride 0.9% 1,000 ML ONE ×2 (14:56→19:32)
[2017-02-27] MEDS ORDERED: Morphine 4 MG/ML VIAL ONE (14:56)
[2017-02-27 15:10] LABS: BILIRUBIN,TOTAL 0.8 mg/dL (0.2-1.3)
[2017-02-27 15:11] LABS: CALCIUM 9.1 mg/dl (8.6-10.4); TOTAL PROTEIN 6.9 g/dL (6.3-8.3)
[2017-02-27 15:14] LABS: POTASSIUM 5.8 mmol/L (3.6-5.2)
[2017-02-27 15:22] LABS: RBC URINE 2 /hpf (0-3); URINE BILIRUBIN NEGATIVE (NEGATIVE); URINE BLOOD NEGATIVE (NEGATIVE); URINE COLOR Yellow (YELLOW); URINE GLUCOSE (UA) 1+ mg/dL (Normal); URINE KETONE TRACE mg/dL (NEGATIVE); URINE LEUKOCYTE ESTERASE NEG Leu/uL (Negative); URINE PROTEIN 3+ mg/dL (NEGATIVE); URINE UROBILINOGEN NORMAL mg/dL (0.2-1.0); WBC URINE 3 /hpf (0-5)
[2017-02-27] MEDS ORDERED: Iohexol 240 (50 ml) ONE (15:22)
[2017-02-27 15:29] LABS: TROPONIN I 0.023 ng/mL (0.00-0.120)
[2017-02-27 17:06] LABS: INR 0.9
[2017-02-27] MEDS ORDERED: Sod Polystyrene Sulf 15 gm/60 ml Oral Susp PO ONE (17:58)
--- NOTE | 2017-02-27 18:28 | CT ---
PROCEDURE: CT Abdomen and Pelvis without intravenous contrast HISTORY: abd pain, multiple abd surgeries COMPARISON: None. TECHNIQUE: Technique. Contrast Dose: Radiation dose: Total exam DLP = 1035 mGy-cm. This CT exam was performed using one or more of the following dose reduction techniques: Automated exposure control, adjustment of the mA and/or kV according to patient size, and/or use of iterative reconstruction technique. FINDINGS: LOWER THORAX: Unremarkable. LIVER: Unremarkable. No gross lesion or ductal dilatation. GALLBLADDER AND BILE DUCTS: Unremarkable. PANCREAS: Unremarkable. No gross lesion or ductal dilatation. SPLEEN: Unremarkable. ADRENALS: Unremarkable. No mass. KIDNEYS AND URETERS: 3 millimeter nonobstructive calculus in the midleft kidney.. No hydronephrosis. No solid mass. VASCULATURE: Unremarkable. No aortic aneurysm. BOWEL: Multiple central distended loops of small bowel with contrast as well as with small amount of fluid in the adjacent mesentery consistent with small-bowel obstruction. APPENDIX: Unremarkable. Normal appendix. PERITONEUM: Unremarkable. No free fluid. No free air. LYMPH NODES: Unremarkable. No enlarged lymph nodes. BLADDER: Unremarkable. REPRODUCTIVE: Unremarkable. BONES: No acute fracture. OTHER FINDINGS: None. IMPRESSION: Multiple distended loops of small bowel in the central abdomen with adjacent fluid consistent with small-bowel obstruction.
[2017-02-27] MEDS ORDERED: Sod Polystyrene Sulf 15 gm/60 ml Oral Susp ONE ×2 (18:59)
[2017-02-27] MEDS ORDERED: Sodium Chloride 0.9% 1,000 ML IV ONE (19:22)
[2017-02-27] MEDS ORDERED: Albuterol-Ipratrop 3 mg / 0.5 (3 ml) UD INH STA (21:15)
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
[2017-02-27] MEDS: Sodium Chloride 0.9% 1,000 ML IV SCH (22:59)
[2017-02-27] MEDS: (Lantus) Insulin Glargine, Recombinant SC SCH (23:04)
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
[2017-02-28 00:52] LABS: POTASSIUM 5.5 mmol/L (3.6-5.2)
[2017-02-28 00:56] LABS: CALCIUM 8.8 mg/dl (8.6-10.4)
[2017-02-28] MEDS: Levothyroxine 25 MCG TAB PO SCH (05:46)
[2017-02-28] MEDS: (Novolog) Insulin Aspart, Recombinant 100 u/ml 10 ml vial SC SCH ×6 (07:29→16:30)
[2017-02-28] MEDS ORDERED: Sodium Chloride 0.9% 1,000 ML IV SCH (08:00)
[2017-02-28 08:13] LABS: POTASSIUM 5.1 mmol/L (3.6-5.2)
[2017-02-28 08:17] LABS: BILIRUBIN,TOTAL 0.5 mg/dL (0.2-1.3); CALCIUM 8.4 mg/dl (8.6-10.4); TOTAL PROTEIN 6.1 g/dL (6.3-8.3)
[2017-02-28] MEDS: Sodium Chloride 0.9% 1,000 ML IV SCH (08:31)
[2017-02-28 08:39] LABS: THYROID STIMULATING HORMONE 1.28 mIU/L (0.46-4.68)
--- NOTE | 2017-02-28 08:44 | RAD ---
HISTORY: NG tube placement COMPARISON: 02/27/2017 FINDINGS: LUNGS: NG tube extending into the stomach. Punctate radiopaque density projecting over the right lung apex, nonspecific. No focal infiltrate or effusion. PLEURA: No significant pleural effusion identified, no pneumothorax apparent. CARDIOVASCULAR: Normal. OSSEOUS STRUCTURES: Calcific tendinopathy of the left proximal humerus. VISUALIZED UPPER ABDOMEN: Normal. OTHER FINDINGS: None. IMPRESSION: NG tube extending into the stomach. Punctate radiopaque density projecting over the right lung apex, nonspecific. No focal infiltrate or effusion.
--- NOTE | 2017-02-28 10:23 | CP.PCM.PN ---
Subjective - Date & Time of Evaluation Date of Evaluation: 02/28/17 Time of Evaluation: 10:22 - Subjective Subjective: PGY-1 progress note for General Surgery, Dr. Rasmussen Pt S&E at bedside. Nursing reports no acute events overnight. Pt denies abdominal pain, N/V. She reports passing gas, but no BM. NG tube removed from suction this AM. Objective - Vital Signs/Intake and Output Vital Signs (last 24 hours): Temp Pulse Resp BP Pulse Ox 97.3 F L 80 20 144/75 98 02/28/17 07:56 02/28/17 07:56 02/28/17 07:56 02/28/17 07:56 02/28/17 07:56 Intake and Output: 02/28/17 02/28/17 06:59 18:59 Intake Total 800 Output Total 550 Balance 250 - Medications Medications: Current Medications Aspirin (Ecotrin) 81 mg PO DAILY [facility] Docusate Sodium (Colace) 100 mg PO BID [facility] Gabapentin (Neurontin) 300 mg PO TID [facility] Heparin Sodium (Porcine) (Heparin) 5,000 units SC Q12 [facility] Sodium Chloride (Sodium Chloride 0.9%) 1,000 mls @ 125 mls/hr IV .Q8H [facility] Last Admin: 02/28/17 08:22 Dose: 125 mls/hr Ibuprofen (Motrin Tab) 600 mg PO TID PRN PRN Reason: Pain, moderate (4-7) Insulin Aspart (Novolog) 10 unit SC AC [facility] Last Admin: 02/28/17 07:29 Dose: Not Given Insulin Aspart (Novolog) 0 unit SC TIDAC [facility] PRN Reason: Protocol Last Admin: 02/28/17 07:29 Dose: Not Given Insulin Glargine (Lantus) 30 unit SC HS [facility] Last Admin: 02/27/17 23:04 Dose: Not Given Levothyroxine Sodium (Synthroid) 25 mcg PO DAILY@0630 [facility] Last Admin: 02/28/17 05:46 Dose: Not Given Lisinopril (Zestril) 10 mg PO DAILY [facility] Meclizine HCl (Antivert) 12.5 mg PO TID PRN PRN Reason: Dizziness Metoprolol Tartrate (Lopressor) 50 mg PO BID [facility] Morphine Sulfate (Morphine) 2 mg IVP Q4 PRN PRN Reason: Pain, moderate (4-7) Ondansetron HCl (Zofran Inj) 4 mg IVP Q6H PRN PRN Reason: Nausea/Vomiting Last Admin: 02/27/17 22:59 Dose: 4 mg Pantoprazole Sodium (Protonix Inj) 40 mg IVP DAILY [facility] Pneumococcal Polyvalent Vaccine (Pneumovax 23 Vaccine) 0.5 ml IM .ONCE ONE Stop: 03/01/17 10:01 Rosuvastatin Calcium (Crestor) 5 mg PO HS [facility] Last Admin: 02/27/17 23:05 Dose: Not Given - Labs Labs: 02/28/17 07:39 PT 9.9 SECONDS (9.7-12.2) 02/27/17 16:50 INR 0.9 02/27/17 16:50 APTT 30 SECONDS (21-34) 02/27/17 16:50 - Constitutional Appears: Non-toxic, No Acute Distress - Head Exam Head Exam: ATRAUMATIC, NORMOCEPHALIC - Eye Exam Eye Exam: EOMI Pupil Exam: PERRL - ENT Exam ENT Exam: Mucous Membranes Moist Additional comments: NG tube off suction. Approximately 600cc greenish collection. - Respiratory Exam Respiratory Exam: Clear to Ausculation Bilateral, NORMAL BREATHING PATTERN - Cardiovascular Exam Cardiovascular Exam: REGULAR RHYTHM, +S1, +S2 - GI/Abdominal Exam GI & Abdominal Exam: Distended (slight, improved from admission), Soft. absent : Tenderness - Extremities Exam Extremities Exam: Normal Inspection. absent: Pedal Edema - Neurological Exam Neurological Exam: Alert, Awake, Oriented x3 - Skin Skin Exam: Normal Color, Warm Assessment and Plan - Assessment and Plan (Free Text) Assessment: 56yo F with PMHx of HTN, hyperlipidemia, DM, hypothyroidism, left foot ulcer, SBO, multiple unknown abdominal surgeries in [place] who presents with abdominal pain and vomiting likely secondary to SBO Plan: CT: multiple distended loops of small bowel in central abdomen with adjacent fluid consistent with SBO NG tube placed with 600cc total output since placement - removed from suction this AM NPO IV Fluids Morphine and Zofran PRN f/u Obst Series for this AM Surgical team D/W Dr. Grady Medellin PGY-1
[2017-02-28] MEDS: Dextrose 5%/0.45% NS 1,000 ML IV SCH (14:40)
--- NOTE | 2017-02-28 15:31 | RAD ---
PROCEDURE: Radiographs of the chest and abdomen (obstructive series) HISTORY: sbo COMPARISON: CT abdomen/pelvis 02/27/2017 TECHNIQUE: AP radiograph of the chest, with upright and supine radiographs of the abdomen. FINDINGS: CHEST: Lungs: Clear. Cardiovascular: Normal heart size. Nasogastric tube extends to left upper quadrant of abdomen. No congestive change. Pleura: No pleural fluid. No pneumothorax. Other findings: None. ABDOMEN AND PELVIS: Bowel: Dilated small bowel loops with air-fluid levels on upright view. Consistent with mechanical small bowel obstruction. Please note that there is oral contrast material from the CT examination of previous day seen within the colon indicating incomplete or intermittent obstruction. Free air: None. Bones: Unremarkable. Other findings: None. IMPRESSION: Findings consistent with mechanical small bowel obstruction. However, oral contrast from previous day seen within colon indicates either intermittent or incomplete mechanical obstruction.
--- NOTE | 2017-02-28 16:11 | CP.PCM.PN ---
<Sheila Woodard - Last Filed: 02/28/17 16:41> Subjective - Date & Time of Evaluation Date of Evaluation: 02/28/17 Time of Evaluation: 08:30 - Subjective Subjective: Patient seen and examined at bedside this morning. She states that she has minimal abdominal pain. She denies nausea and has not vomited since yesterday. She reports that she had a BM yesterday and once this morning. She is also passing gas. She has been NPO. NG tube in place. She denies all other complaints such as fever/chills, chest pain, palpitations, SOB, headaches, changes in vision, weakness. Objective - Vital Signs/Intake and Output Vital Signs (last 24 hours): Temp Pulse Resp BP Pulse Ox 97.3 F L 80 20 144/75 98 02/28/17 07:56 02/28/17 07:56 02/28/17 07:56 02/28/17 07:56 02/28/17 07:56 Intake and Output: 02/28/17 02/28/17 06:59 18:59 Intake Total 800 Output Total 550 Balance 250 - Medications Medications: Current Medications Aspirin (Ecotrin) 81 mg PO DAILY [facility] Last Admin: 02/28/17 11:26 Dose: 81 mg Docusate Sodium (Colace) 100 mg PO BID [facility] Last Admin: 02/28/17 11:26 Dose: Not Given Gabapentin (Neurontin) 300 mg PO TID [facility] Last Admin: 02/28/17 14:02 Dose: 300 mg Heparin Sodium (Porcine) (Heparin) 5,000 units SC Q12 [facility] Last Admin: 02/28/17 10:54 Dose: 5,000 units Dextrose/Sodium Chloride (Dextrose 5%/0.45% Ns 1000 Ml) 1,000 mls @ 100 mls/hr IV .Q10H [facility] Last Admin: 02/28/17 14:40 Dose: 100 mls/hr Ibuprofen (Motrin Tab) 600 mg PO TID PRN PRN Reason: Pain, moderate (4-7) Insulin Aspart (Novolog) 10 unit SC AC [facility] Last Admin: 02/28/17 12:03 Dose: Not Given Insulin Aspart (Novolog) 0 unit SC TIDAC [facility] PRN Reason: Protocol Last Admin: 02/28/17 12:03 Dose: Not Given Insulin Glargine (Lantus) 30 unit SC HS [facility] Last Admin: 02/27/17 23:04 Dose: Not Given Levothyroxine Sodium (Synthroid) 25 mcg PO DAILY@0630 [facility] Last Admin: 02/28/17 05:46 Dose: Not Given Lisinopril (Zestril) 10 mg PO DAILY [facility] Last Admin: 02/28/17 11:26 Dose: 10 mg Meclizine HCl (Antivert) 12.5 mg PO TID PRN PRN Reason: Dizziness Metoprolol Tartrate (Lopressor) 50 mg PO BID [facility] Last Admin: 02/28/17 11:26 Dose: 50 mg Morphine Sulfate (Morphine) 2 mg IVP Q4 PRN PRN Reason: Pain, moderate (4-7) Ondansetron HCl (Zofran Inj) 4 mg IVP Q6H PRN PRN Reason: Nausea/Vomiting Last Admin: 02/27/17 22:59 Dose: 4 mg Pantoprazole Sodium (Protonix Inj) 40 mg IVP DAILY [facility] Last Admin: 02/28/17 10:53 Dose: 40 mg Pneumococcal Polyvalent Vaccine (Pneumovax 23 Vaccine) 0.5 ml IM .ONCE ONE Stop: 03/01/17 10:01 Rosuvastatin Calcium (Crestor) 5 mg PO [facility] Last Admin: 02/27/17 23:05 Dose: Not Given - Labs Labs: 02/28/17 07:39 PT 9.9 SECONDS (9.7-12.2) 02/27/17 16:50 INR 0.9 02/27/17 16:50 APTT 30 SECONDS (21-34) 02/27/17 16:50 - Constitutional Appears: Non-toxic, No Acute Distress - Head Exam Head Exam: ATRAUMATIC, NORMAL INSPECTION - Eye Exam Eye Exam: EOMI, Normal appearance, PERRL Pupil Exam: NORMAL ACCOMODATION - ENT Exam ENT Exam: Mucous Membranes Moist - Respiratory Exam Respiratory Exam: Clear to Ausculation Bilateral, NORMAL BREATHING PATTERN. absent: Accessory Muscle Use, Chest Wall Tenderness, Respiratory Distress - Cardiovascular Exam Cardiovascular Exam: REGULAR RHYTHM, +S1, +S2 - GI/Abdominal Exam GI & Abdominal Exam: Distended, Soft, Tenderness, Hypoactive Bowel Sounds. absent: Firm, Guarding - Extremities Exam Extremities Exam: Normal Inspection. absent: Calf Tenderness, Full ROM, Pedal Edema Additional comments: diabetic ulcers L foot, dressing c/d/i - Back Exam Back Exam: NORMAL INSPECTION. absent: CVA tenderness (L), CVA tenderness (R), paraspinal tenderness - Neurological Exam Neurological Exam: Alert, Awake, Oriented x3 - Psychiatric Exam Psychiatric exam: Normal Affect, Normal Mood - Skin Skin Exam: Dry, Normal Color, Warm Assessment and Plan - Assessment and Plan (Free Text) Assessment: 1. Abdominal Pain likely secondary to SBO - imprving (regular BM this morning) NPO except meds - advanced to clear liquids NG tube in place Surgery, Dr. Rasmussen, consulted. Help appreciated. Will follow-up recs Zofran 4 mg IVP q6h prn for nausea Motrin 600 mg po TID prn for moderate pain Normal Saline IV @100cc Abdomen/Pelvis CT with po contrast: Multiple distended loops of small bowel in the central abdomen with adjacent fluid consistent with small-bowel obstruction (see full report). Abd Obstructive series: mechanical small bowel obstruction 2. Acute Renal Insufficiency likely secondary to dehydration BUN/CR: 40/2.3 Creatinine clearance 31 ml/min GFR 22, Stage 4 CKD baseline CR of 1.7 Normal saline IV @ 100cc f/u AM labs Consider consulting nephrology if CR does not improve 3. Hyperkalemia Potassium 5.8 on admission, K 5.1 today Monitor 4. Diabetes Mellitus hemoglobin a1c - 12.9 Continue home medications: Lantus 30 U SC HS and Novolog 10 U SC AC [facility] Neurontin 300 mg po TID Accuchecks Aspirin 81 mg PO daily Lisionpril 10mg PO daily - hold to due increased Cr 5. Hypertension Continue home medications: Lopressor 50 mg po BID Lisinopril 10 mg po daily - hold ASA 81 mg po daily 6. Hyperlipidemia Crestor 5 mg po HS 7. Hypothyroidism Continue home medication Synthroid 25 mcg po daily 8. Prophylaxis SCD Heparin 5000 units SC q12h Protonix 40 mg IVP daily <Anne Marie Cantu V - Last Filed: 03/01/17 19:19> Objective - Vital Signs/Intake and Output Vital Signs (last 24 hours): Temp Pulse Resp BP Pulse Ox 97 F L 88 20 125/76 97 03/01/17 15:10 03/01/17 15:10 03/01/17 15:10 03/01/17 15:10 03/01/17 15:10 Intake and Output: 03/01/17 03/02/17 18:59 06:59 Intake Total 1050 Balance 1050 - Medications Medications: Current Medications Aspirin (Ecotrin) 81 mg PO DAILY [facility] Last Admin: 03/01/17 11:00 Dose: 81 mg Benzocaine/Menthol (Cepacol Sore Throat) 1 [place] Q3H PRN PRN Reason: Sore Throat Docusate Sodium (Colace) 100 mg PO BID [facility] Last Admin: 03/01/17 17:26 Dose: 100 mg Gabapentin (Neurontin) 100 mg PO TID [facility] Last Admin: 03/01/17 17:25 Dose: 100 mg Heparin Sodium (Porcine) (Heparin) 5,000 units SC Q12 [facility] Last Admin: 03/01/17 11:00 Dose: 5,000 units Sodium Chloride (Sodium Chloride 0.9%) 1,000 mls @ 100 mls/hr IV .Q10H [facility] Last Admin: 03/01/17 16:00 Dose: 100 mls/hr Insulin Aspart (Novolog) 10 unit SC AC [facility] Last Admin: 03/01/17 16:38 Dose: Not Given Insulin Aspart (Novolog) 0 unit SC TIDAC [facility] PRN Reason: Protocol Last Admin: 03/01/17 16:38 Dose: Not Given Insulin Glargine (Lantus) 30 unit SC HS [facility] Last Admin: 02/28/17 21:51 Dose: 30 units Levothyroxine Sodium (Synthroid) 25 mcg PO DAILY@0630 [facility] Last Admin: 03/01/17 05:42 Dose: 25 mcg Lisinopril (Zestril) 10 mg PO DAILY [facility] Last Admin: 02/28/17 11:26 Dose: 10 mg Meclizine HCl (Antivert) 12.5 mg PO TID PRN PRN Reason: Dizziness Metoprolol Tartrate (Lopressor) 50 mg PO BID [facility] Last Admin: 03/01/17 17:26 Dose: 50 mg Morphine Sulfate (Morphine) 2 mg IVP Q4 PRN PRN Reason: Pain, moderate (4-7) Ondansetron HCl (Zofran Inj) 4 mg IVP Q6H PRN PRN Reason: Nausea/Vomiting Last Admin: 03/01/17 00:25 Dose: 4 mg Pantoprazole Sodium (Protonix Inj) 40 mg IVP DAILY [facility] Last Admin: 03/01/17 11:00 Dose: 40 mg Rosuvastatin Calcium (Crestor) 5 mg PO HS [facility] Last Admin: 02/28/17 21:45 Dose: 5 mg - Labs Labs: 03/01/17 15:05 03/01/17 15:05 PT 9.9 SECONDS (9.7-12.2) 02/27/17 16:50 INR 0.9 02/27/17 16:50 APTT 30 SECONDS (21-34) 02/27/17 16:50 Attending/Attestation - Attestation I have personally seen and examined this patient.: Yes I have fully participated in the care of the patient.: Yes I have reviewed all pertinent clinical information, including history, physical exam and plan: Yes Notes (Text): This is a late computer entry for 03/01/17. Patient seen, examined, and case discussed with day-time resident. Patient seen during morning rounds. Patient has NGT tube in place. General surgery (Dr. Rasmussen) on board-->help appreciated Patient currently NPO, restarted insulin regimen, and switched IV fluids to include Dextrose to avoid hypoglycemia. Nephrology (Dr. Gunter) on board-->help appreciated. Assessment/Plan 1. Small Bowel Obstruction * Surgery (Dr. Rasmussen) on board-->help appreciated. * Patient has NGT tube placed and clamped * Fluids changed to D51/2NS 100cc/hr * Diet to be advanced per surger * Zofran 4 mg IVP q6h prn for nausea * Motrin 600 mg po TID prn for moderate pain * Abdomen/Pelvis CT with po contrast (02/28/17): Multiple distended loops of small bowel in the central abdomen with adjacent fluid consistent with small- bowel obstruction (see full report). * Abd Obstructive series (02/27/17): mechanical small bowel obstruction 2. Acute Renal Insufficiency * likely secondary to dehydration * BUN/CR: 40/2.3 * Creatinine clearance 31 ml/min * GFR 22, Stage 4 CKD * baseline CR of 1.7 * D5/12NS 100cc/hr * Nephrology (Dr. Gunter) on board-->help appreciated 3. Hyperkalemia * Potassium 5.8 on admission, K 5.1 today * Held anastacio-inhibitor in light of hyperkalemia * Monitor 4. Diabetes Mellitus * hemoglobin a1c - 12.9 * Continue home medications: Lantus 30 U SC HS and Novolog 10 U SC AC * [facility] * Neurontin 300 mg po TID * Accuchecks * Aspirin 81 mg PO daily * Lisionpril 10mg PO daily - hold to due increased Cr 5. Hypertension * Lopressor 50 mg po BID * Lisinopril 10 mg po daily - hold 6. Hyperlipidemia * Crestor 5 mg po HS 7. Hypothyroidism * Continue home medication Synthroid 25 mcg po daily 8. Prophylaxis * SCDs b/l * Heparin 5000 units SC q12h * Protonix 40 mg IVP daily * NGT tube
--- NOTE | 2017-02-28 18:29 | CARD ---
APPROVED REPORT EKG Measurement Heart [id number] <Conclusion> Normal sinus rhythm Nonspecific T wave abnormality Abnormal ECG
[2017-02-28] MEDS: (Lantus) Insulin Glargine, Recombinant SC SCH (21:51)
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
[2017-03-01] MEDS: Dextrose 5%/0.45% NS 1,000 ML IV SCH ×2 (00:25→13:56)
[2017-03-01 00:58] LABS: RBC URINE 1 /hpf (0-3); URINE BILIRUBIN NEGATIVE (NEGATIVE); URINE BLOOD NEGATIVE (NEGATIVE); URINE COLOR Straw (YELLOW); URINE GLUCOSE (UA) 3+ mg/dL (Normal); URINE KETONE NEGATIVE (NEGATIVE); URINE LEUKOCYTE ESTERASE NEG Leu/uL (Negative); URINE PROTEIN 2+ mg/dL (NEGATIVE); URINE UROBILINOGEN NORMAL mg/dL (0.2-1.0); WBC URINE 1 /hpf (0-5)
[2017-03-01 01:11] VITALS: RESP 20
[2017-03-01 02:35] LABS: CREATININE, RANDOM URINE 46.9 mg/dL
[2017-03-01] MEDS: Levothyroxine 25 MCG TAB PO SCH (05:42)
[2017-03-01] MEDS: (Novolog) Insulin Aspart, Recombinant 100 u/ml 10 ml vial SC SCH ×7 (08:30→21:40)
[2017-03-01] MEDS ORDERED: Pneumococcal 23-Valent Vaccine IM ONE (10:00)
[2017-03-01] MEDS ORDERED: Benzocaine/Menthol (Cepacol) Lozenge MT PRN ×2 (10:00→10:45)
--- NOTE | 2017-03-01 14:10 | CP.PCM.PN ---
<Sheila Woodard - Last Filed: 03/01/17 15:41> Subjective - Date & Time of Evaluation Date of Evaluation: 03/01/17 Time of Evaluation: 07:35 - Subjective Subjective: Patient seen and examined at bedside this morning. She reports minimal to no pain in her abdomen. She report mild nausea and has not vomited since before her admission. She reports that she had a BM yesterday and multiple this AM. She is now tolerating a liquid diet and the NG tube an been removed. She denies all other complaints such as fever/chills, chest pain, palpitations, SOB , headaches, changes in vision, weakness. Objective - Vital Signs/Intake and Output Vital Signs (last 24 hours): Temp Pulse Resp BP Pulse Ox 98.5 F 103 H 20 148/76 98 03/01/17 07:19 03/01/17 07:19 03/01/17 07:19 03/01/17 07:19 03/01/17 07:19 Intake and Output: 03/01/17 03/01/17 06:59 18:59 Intake Total 1660 Balance 1660 - Medications Medications: Current Medications Aspirin (Ecotrin) 81 mg PO DAILY [facility] Last Admin: 03/01/17 11:00 Dose: 81 mg Benzocaine/Menthol (Cepacol Sore Throat) 1 kevin MT Q3H PRN PRN Reason: Sore Throat Docusate Sodium (Colace) 100 mg PO BID [facility] Last Admin: 03/01/17 11:00 Dose: 100 mg Gabapentin (Neurontin) 100 mg PO TID [facility] Last Admin: 03/01/17 14:03 Dose: 100 mg Heparin Sodium (Porcine) (Heparin) 5,000 units SC Q12 [facility] Last Admin: 03/01/17 11:00 Dose: 5,000 units Dextrose/Sodium Chloride (Dextrose 5%/0.45% Ns 1000 Ml) 1,000 mls @ 100 mls/hr IV .Q10H [facility] Last Admin: 03/01/17 13:56 Dose: 100 mls/hr Insulin Aspart (Novolog) 10 unit SC AC [facility] Last Admin: 03/01/17 12:00 Dose: 10 unit Insulin Aspart (Novolog) 0 unit SC TIDAC [facility] PRN Reason: Protocol Last Admin: 03/01/17 12:00 Dose: 1 unit Insulin Glargine (Lantus) 30 unit SC [facility] Last Admin: 02/28/17 21:51 Dose: 30 units Levothyroxine Sodium (Synthroid) 25 mcg PO DAILY@0630 [facility] Last Admin: 03/01/17 05:42 Dose: 25 mcg Lisinopril (Zestril) 10 mg PO DAILY [facility] Last Admin: 02/28/17 11:26 Dose: 10 mg Meclizine HCl (Antivert) 12.5 mg PO TID PRN PRN Reason: Dizziness Metoprolol Tartrate (Lopressor) 50 mg PO BID [facility] Last Admin: 03/01/17 11:00 Dose: 50 mg Morphine Sulfate (Morphine) 2 mg IVP Q4 PRN PRN Reason: Pain, moderate (4-7) Ondansetron HCl (Zofran Inj) 4 mg IVP Q6H PRN PRN Reason: Nausea/Vomiting Last Admin: 03/01/17 00:25 Dose: 4 mg Pantoprazole Sodium (Protonix Inj) 40 mg IVP DAILY [facility] Last Admin: 03/01/17 11:00 Dose: 40 mg Rosuvastatin Calcium (Crestor) 5 mg PO [facility] Last Admin: 02/28/17 21:45 Dose: 5 mg - Labs Labs: 02/28/17 07:39 PT 9.9 SECONDS (9.7-12.2) 02/27/17 16:50 INR 0.9 02/27/17 16:50 APTT 30 SECONDS (21-34) 02/27/17 16:50 - Constitutional Appears: Non-toxic, No Acute Distress - Head Exam Head Exam: ATRAUMATIC, NORMAL INSPECTION - Eye Exam Eye Exam: EOMI, Normal appearance, PERRL Pupil Exam: NORMAL ACCOMODATION - ENT Exam ENT Exam: Mucous Membranes Moist - Respiratory Exam Respiratory Exam: Clear to Ausculation Bilateral, NORMAL BREATHING PATTERN. absent: Accessory Muscle Use, Chest Wall Tenderness, Rales, Wheezes, Respiratory Distress - Cardiovascular Exam Cardiovascular Exam: REGULAR RHYTHM, +S1, +S2 - GI/Abdominal Exam GI & Abdominal Exam: Distended, Soft, Normal Bowel Sounds. absent: Firm, Guarding, Tenderness Additional comments: improving - Extremities Exam Extremities Exam: absent: Calf Tenderness, Pedal Edema Additional comments: diabetic ulcers left foot dressing c/d/i - Back Exam Back Exam: NORMAL INSPECTION. absent: CVA tenderness (L), CVA tenderness (R), paraspinal tenderness - Neurological Exam Neurological Exam: Alert, Awake, Oriented x3 - Psychiatric Exam Psychiatric exam: Normal Affect, Normal Mood - Skin Skin Exam: Dry, Normal Color, Warm Assessment and Plan - Assessment and Plan (Free Text) Assessment: Abdominal Pain likely secondary to SBO - greatly improved, now having frequent Bowel Movements Tolerating liquid diet NG tube removed Surgery, Dr. Rasmussen, consulted. Help appreciated. Will follow-up recs Zofran 4 mg IVP q6h prn for nausea Motrin 600 mg po TID prn for moderate pain Normal Saline IV @100cc Abdomen/Pelvis CT with po contrast: Multiple distended loops of small bowel in the central abdomen with adjacent fluid consistent with small-bowel obstruction (see full report). Abd Obstructive series: mechanical small bowel obstruction Acute Renal Insufficiency likely secondary to dehydration BUN/CR: 23/1.9 improving from 40/2.3 Creatinine clearance 31 ml/min GFR 22, Stage 4 CKD baseline CR of 1.7 Normal saline IV @ 100cc f/u AM labs Dr. Medrano, Nephrology consulted, help appreciated: continue to hold lisinopril , avoid NSAIDS, hold diuretics until it can be established from urine lytes that patient is not volume depleted Hyperkalemia Resolved Potassium 5.8 on admission Monitor Diabetes Mellitus hemoglobin a1c - 12.9 Continue home medications: Lantus 30 U SC HS and Novolog 10 U SC AC RISS Neurontin 100 mg po TID - dose decreased due to renal function Accuchecks Aspirin 81 mg PO daily Lisionpril 10mg PO daily - hold to due increased Cr Hypertension Continue home medications: Lopressor 50 mg po BID Lisinopril 10 mg po daily - hold ASA 81 mg po daily Hyperlipidemia Crestor 5 mg po HS Hypothyroidism Continue home medication Synthroid 25 mcg po daily Prophylaxis SCD Heparin 5000 units SC q12h Protonix 40 mg IVP daily <Anne Marie Cantu V - Last Filed: 03/01/17 19:24> Objective - Vital Signs/Intake and Output Vital Signs (last 24 hours): Temp Pulse Resp BP Pulse Ox 97 F L 88 20 125/76 97 03/01/17 15:10 03/01/17 15:10 03/01/17 15:10 03/01/17 15:10 03/01/17 15:10 Intake and Output: 03/01/17 03/02/17 18:59 06:59 Intake Total 1050 Balance 1050 - Medications Medications: Current Medications Aspirin (Ecotrin) 81 mg PO DAILY [facility] Last Admin: 03/01/17 11:00 Dose: 81 mg Benzocaine/Menthol (Cepacol Sore Throat) 1 kevin MT Q3H PRN PRN Reason: Sore Throat Docusate Sodium (Colace) 100 mg PO BID [facility] Last Admin: 03/01/17 17:26 Dose: 100 mg Gabapentin (Neurontin) 100 mg PO TID [facility] Last Admin: 03/01/17 17:25 Dose: 100 mg Heparin Sodium (Porcine) (Heparin) 5,000 units SC Q12 [facility] Last Admin: 03/01/17 11:00 Dose: 5,000 units Sodium Chloride (Sodium Chloride 0.9%) 1,000 mls @ 100 mls/hr IV .Q10H [facility] Last Admin: 03/01/17 16:00 Dose: 100 mls/hr Insulin Aspart (Novolog) 10 unit SC AC [facility] Last Admin: 03/01/17 16:38 Dose: Not Given Insulin Aspart (Novolog) 0 unit SC TIDAC [facility] PRN Reason: Protocol Last Admin: 03/01/17 16:38 Dose: Not Given Insulin Glargine (Lantus) 30 unit SC HS [facility] Last Admin: 02/28/17 21:51 Dose: 30 units Levothyroxine Sodium (Synthroid) 25 mcg PO DAILY@0630 [facility] Last Admin: 03/01/17 05:42 Dose: 25 mcg Lisinopril (Zestril) 10 mg PO DAILY [facility] Last Admin: 02/28/17 11:26 Dose: 10 mg Meclizine HCl (Antivert) 12.5 mg PO TID PRN PRN Reason: Dizziness Metoprolol Tartrate (Lopressor) 50 mg PO BID [facility] Last Admin: 03/01/17 17:26 Dose: 50 mg Morphine Sulfate (Morphine) 2 mg IVP Q4 PRN PRN Reason: Pain, moderate (4-7) Ondansetron HCl (Zofran Inj) 4 mg IVP Q6H PRN PRN Reason: Nausea/Vomiting Last Admin: 03/01/17 00:25 Dose: 4 mg Pantoprazole Sodium (Protonix Inj) 40 mg IVP DAILY [facility] Last Admin: 03/01/17 11:00 Dose: 40 mg Rosuvastatin Calcium (Crestor) 5 mg PO HS [facility] Last Admin: 02/28/17 21:45 Dose: 5 mg - Labs Labs: 03/01/17 15:05 03/01/17 15:05 PT 9.9 SECONDS (9.7-12.2) 02/27/17 16:50 INR 0.9 02/27/17 16:50 APTT 30 SECONDS (21-34) 02/27/17 16:50 Attending/Attestation - Attestation I have personally seen and examined this patient.: Yes I have fully participated in the care of the patient.: Yes I have reviewed all pertinent clinical information, including history, physical exam and plan: Yes Notes (Text): Patient seen, examined, and case discussed with day-time resident. Patient seen, examined during morning rounds. Per surgery, patient's NGT tube was removed. Patient had multiple bowel movements during the day. Will observed and pending surgery, will determine for possible discharge tomorrow Assessment/Plan 1. Small Bowel Obstruction * Surgery (Dr. Rasmussen) on board-->help appreciated. * Patient has NGT tube placed and clamped * Fluids changed to D51/2NS 100cc/hr * Diet to be advanced per surger * Zofran 4 mg IVP q6h prn for nausea * Motrin 600 mg po TID prn for moderate pain * Abdomen/Pelvis CT with po contrast (02/28/17): Multiple distended loops of small bowel in the central abdomen with adjacent fluid consistent with small- bowel obstruction (see full report). * Abd Obstructive series (02/27/17): mechanical small bowel obstruction 2. Acute on Chronic Renal Insufficiency * likely secondary to dehydration * baseline CR of 1.9 * D5/12NS 100cc/hr * Nephrology (Dr. Gunter) on board-->help appreciated 3. Hyperkalemia * Potassium 5.8 on admission, K 5.1 today * Held anastacio-inhibitor in light of hyperkalemia-->wihich has normalized * Monitor 4. Diabetes Mellitus * hemoglobin a1c - 12.9 * Continue home medications: Lantus 30 U SC HS and Novolog 10 U SC AC * Decrease Neurontin 100 mg po TID * Accuchecks * Aspirin 81 mg PO daily * Lisionpril 10mg PO daily - hold to due increased Cr yesterday 5. Hypertension * Lopressor 50 mg po BID * Lisinopril 10 mg po daily - hold * Blood pressure controlled 6. Hyperlipidemia * Crestor 5 mg po HS 7. Hypothyroidism * Continue home medication Synthroid 25 mcg po daily 8. Prophylaxis * SCDs b/l * Heparin 5000 units SC q12h * Protonix 40 mg IVP daily * Advanced to solid dinner for this evening
[2017-03-01 15:10] LABS: BASO % 0.3 % (0.0-2.0); EOS # 0.1 K/uL (0.0-0.7); EOS % 1.1 % (0.0-4.0); HEMATOCRIT 30.7 % (34.0-47.0); LYMPH # 1.8 K/uL (1.0-4.3); LYMPH % 22.6 % (20.0-40.0); MEAN CORPUSCULAR HEMOGLOBIN 29.6 pg (27.0-31.0); MEAN CORPUSCULAR HGB CONC 33.6 g/dL (33.0-37.0); MEAN PLATELET VOLUME 8.4 fL (7.2-11.7); MONO # 0.6 K/uL (0.0-0.8); MONO % 8.1 % (0.0-10.0); RED CELL DISTRIBUTION WIDTH 12.7 % (11.5-14.5); WHITE BLOOD COUNT 7.8 K/uL (4.8-10.8)
[2017-03-01 15:27] LABS: POTASSIUM 4.3 mmol/L (3.6-5.2)
[2017-03-01 15:29] LABS: BILIRUBIN,TOTAL 0.6 mg/dL (0.2-1.3); PHOSPHOROUS 3.9 mg/dL (2.5-4.5); TOTAL PROTEIN 6.3 g/dL (6.3-8.3)
[2017-03-01 15:30] LABS: CALCIUM 8.2 mg/dl (8.6-10.4); MAGNESIUM 1.7 mg/dL (1.6-2.3)
--- NOTE | 2017-03-01 15:37 | CP.PCM.PN ---
Subjective - Date & Time of Evaluation Date of Evaluation: 03/01/17 Time of Evaluation: 09:00 - Subjective Subjective: GENERAL SURGERY PROGRESS NOTE FOR DR. GUZMAN Patient seen and examined at bedside. She reports that her abdominal pain has resolved. She is tolerating the CLD. She had some mild nausea but no vomiting. She had 7 bowel movements this AM and is hungry. NG tube was removed this AM. Patient complains of sore throat. Objective - Vital Signs/Intake and Output Vital Signs (last 24 hours): Temp Pulse Resp BP Pulse Ox 98.5 F 103 H 20 148/76 98 03/01/17 07:19 03/01/17 07:19 03/01/17 07:19 03/01/17 07:19 03/01/17 07:19 Intake and Output: 03/01/17 03/01/17 06:59 18:59 Intake Total 1660 Balance 1660 - Medications Medications: Current Medications Aspirin (Ecotrin) 81 mg PO DAILY [facility] Last Admin: 03/01/17 11:00 Dose: 81 mg Benzocaine/Menthol (Cepacol Sore Throat) 1 kevin MT Q3H PRN PRN Reason: Sore Throat Docusate Sodium (Colace) 100 mg PO BID [facility] Last Admin: 03/01/17 11:00 Dose: 100 mg Gabapentin (Neurontin) 100 mg PO TID [facility] Last Admin: 03/01/17 14:03 Dose: 100 mg Heparin Sodium (Porcine) (Heparin) 5,000 units SC Q12 [facility] Last Admin: 03/01/17 11:00 Dose: 5,000 units Sodium Chloride (Sodium Chloride 0.9%) 1,000 mls @ 100 mls/hr IV .Q10H [facility] Insulin Aspart (Novolog) 10 unit SC AC [facility] Last Admin: 03/01/17 12:00 Dose: 10 unit Insulin Aspart (Novolog) 0 unit SC TIDAC [facility] PRN Reason: Protocol Last Admin: 03/01/17 12:00 Dose: 1 unit Insulin Glargine (Lantus) 30 unit SC HS [facility] Last Admin: 02/28/17 21:51 Dose: 30 units Levothyroxine Sodium (Synthroid) 25 mcg PO DAILY@0630 [facility] Last Admin: 03/01/17 05:42 Dose: 25 mcg Lisinopril (Zestril) 10 mg PO DAILY [facility] Last Admin: 02/28/17 11:26 Dose: 10 mg Meclizine HCl (Antivert) 12.5 mg PO TID PRN PRN Reason: Dizziness Metoprolol Tartrate (Lopressor) 50 mg PO BID [facility] Last Admin: 03/01/17 11:00 Dose: 50 mg Morphine Sulfate (Morphine) 2 mg IVP Q4 PRN PRN Reason: Pain, moderate (4-7) Ondansetron HCl (Zofran Inj) 4 mg IVP Q6H PRN PRN Reason: Nausea/Vomiting Last Admin: 03/01/17 00:25 Dose: 4 mg Pantoprazole Sodium (Protonix Inj) 40 mg IVP DAILY [facility] Last Admin: 03/01/17 11:00 Dose: 40 mg Rosuvastatin Calcium (Crestor) 5 mg PO HS [facility] Last Admin: 02/28/17 21:45 Dose: 5 mg - Labs Labs: 03/01/17 15:05 02/28/17 07:39 PT 9.9 SECONDS (9.7-12.2) 02/27/17 16:50 INR 0.9 02/27/17 16:50 APTT 30 SECONDS (21-34) 02/27/17 16:50 - Constitutional Appears: Non-toxic, No Acute Distress - Eye Exam Eye Exam: EOMI, Normal appearance - Respiratory Exam Respiratory Exam: NORMAL BREATHING PATTERN. absent: Respiratory Distress - Cardiovascular Exam Cardiovascular Exam: +S1, +S2 - GI/Abdominal Exam GI & Abdominal Exam: Soft, Tenderness (mild tender on left). absent: Distended , Firm, Guarding, Rigid, Rebound Additional comments: NG tube in place - clamped - Neurological Exam Neurological Exam: Alert, Awake, Oriented x3 - Psychiatric Exam Psychiatric exam: Normal Affect, Normal Mood - Skin Skin Exam: Normal Color, Warm Assessment and Plan - Assessment and Plan (Free Text) Assessment: 56yo F with PMHx of HTN, hyperlipidemia, DM, hypothyroidism, left foot ulcer, SBO, multiple unknown abdominal surgeries in [place] who presents with abdominal pain and vomiting likely secondary to SBO - Afebrile, VSS - Having BMs - NG tube removed this AM - Tolerating CLD, advanced to full liquids - Ordered Cepacol for sore throat - Recommend podiatry consult for left diabetic foot ulcer - Discussed plan with Dr. Grady Ballard PGY-2
[2017-03-01] MEDS: Sodium Chloride 0.9% 1,000 ML IV SCH (16:00)
--- NOTE | 2017-03-01 20:18 | PN ---
DATE: 03/01/2017 A 56-year-old female with past medical history of hypertension, diabetes, hyperlipidemia and recent l eft foot diabetic foot ulcer that was treated with vancomycin and Zosyn, admitted with small-bowel ob struction. Nephrology consulted for acute renal failure. The patient reports feeling better today. Tolerating diet. Had a large bowel movement. Denies any shortness of breath. PHYSICAL EXAMINATION: VITAL SIGNS: This afternoon, blood pressure 125/76, heart rate 88, respirations 20, temperature 97.0 , O2 sat 97% on room air. GENERAL: No distress, lying comfortably in bed. HEENT: Nonicteric. CHEST: Clear to auscultation bilaterally. No rales, no rhonchi, no wheezes. HEART: S1, S2 normal. No murmurs, no gallops, no rubs. ABDOMEN: Soft, nontender, nondistended. GENITOURINARY: No bladder distention. EXTREMITIES: Minimal lower leg edema. LABORATORY DATA: CBC: WBC 7.8, hemoglobin 10.3, hematocrit 30.7, platelets 202. Chemistry panel: Sodium 136, potassium , chloride 105, bicarb 23, BUN 23, creatinine 1.9 down from 2.3 yesterday. Glucose 139, calcium 8.2, albumin 3.1. Hemoglobin A1c 12.9%. Urine lytes: Urine sodium 109, urin e urea 426, urine creatinine 46.9 and urine protein 170. ASSESSMENT: 1. Acute renal failure, acute kidney injury on chronic kidney disease. Initially acute kidney injur y insult was likely vancomycin toxicity. However, subsequent worsening of renal function after the p atient discharged and readmitted is unclear. The patient reports being on naproxen years ago, but no t recently. She had been on ALICIA inhibitor and could have suffered some degree of acute tubular necro sis secondary to hypovolemia. Nevertheless, renal function improved today. Appears euvolemic on exa m. Urine electrolytes not indicative of prerenal cause. Continue to hold lisinopril. Continue to h old diuretics. Avoid any nephrotoxic agents. 2. Chronic kidney disease. Appears to be chronic kidney disease stage IIIB, although there is 1 ebonie rrant serum creatinine reading that puts her at normal GFR. Nevertheless, the patient has significan t proteinuria with almost 3.5 grams of proteinuria per urine protein/creatinine ratio, which is close to nephrotic range. Workup being sent for secondary causes of proteinuria, although diabetes with u ncontrolled blood sugars and ensuing diabetic nephropathy is most likely. Will follow as an outpatie nt. 3. Proteinuria. Needs to be put back on blockade with ALICIA inhibitor in the long-term but shou ld hold off until renal function stabilizes. 4. Hypertension. Currently normotensive. Continue metoprolol 50 mg b.i.d. for now Can start lisin opril as an outpatient or when renal function stabilizes. 5. Diabetes. The patient counseled on need for adequate blood sugar control to prevent progression of microvascular changes associated with diabetes. 6. Small-bowel obstruction, appears to have resolved. Should avoid NSAIDs for pain. Avoid phosphat e-containing Fleet's enema. Hema Medrano MD cc: [id number] TT: 03/01/2017 20:17:04 Confirmation # [id number] Dictation # [id number] morris
[2017-03-01] MEDS: (Lantus) Insulin Glargine, Recombinant SC SCH (21:33)
[2017-03-02] MEDS: Sodium Chloride 0.9% 1,000 ML IV SCH (05:44)
[2017-03-02] MEDS: Levothyroxine 25 MCG TAB PO SCH (05:44)
[2017-03-02 06:36] LABS: BASO % 0.3 % (0.0-2.0); EOS # 0.1 K/uL (0.0-0.7); EOS % 1.9 % (0.0-4.0); HEMATOCRIT 32.7 % (34.0-47.0); LYMPH # 2.5 K/uL (1.0-4.3); LYMPH % 36.7 % (20.0-40.0); MEAN CELL VOLUME 87.3 fL (81.0-99.0); MEAN CORPUSCULAR HEMOGLOBIN 29.7 pg (27.0-31.0); MEAN PLATELET VOLUME 9.3 fL (7.2-11.7); MONO # 0.4 K/uL (0.0-0.8); RED CELL DISTRIBUTION WIDTH 12.8 % (11.5-14.5); WHITE BLOOD COUNT 6.8 K/uL (4.8-10.8)
[2017-03-02 06:38] LABS: POTASSIUM 4.4 mmol/L (3.6-5.2)
[2017-03-02 06:40] LABS: ALB/GLOB RATIO 0.9 (1.0-2.1); BILIRUBIN,TOTAL 0.4 mg/dL (0.2-1.3); TOTAL PROTEIN 5.8 g/dL (6.3-8.3)
[2017-03-02 06:41] LABS: CALCIUM 8.2 mg/dl (8.6-10.4); MAGNESIUM 1.6 mg/dL (1.6-2.3); PHOSPHOROUS 3.6 mg/dL (2.5-4.5)
[2017-03-02 08:12] VITALS: BP 157/81; PULSE 82; TEMP 98; O2SAT 97
[2017-03-02] MEDS: (Novolog) Insulin Aspart, Recombinant 100 u/ml 10 ml vial SC SCH ×4 (08:24→12:09)
--- NOTE | 2017-03-02 09:02 | CP.PCM.PN ---
Subjective - Date & Time of Evaluation Date of Evaluation: 03/02/17 Time of Evaluation: 07:00 - Subjective Subjective: GENERAL SURGERY PROGRESS NOTE FOR DR. GUZMAN Patient seen and examined at bedside. She reports some mild abdominal pain but states that she feels better. She is tolerating her regular CCD diet. Denies nausea or vomiting. She had 7 bowel movements yesterday and is passing flatus. Objective - Vital Signs/Intake and Output Vital Signs (last 24 hours): Temp Pulse Resp BP Pulse Ox 98.0 F 82 20 157/81 H 97 03/02/17 08:00 03/02/17 08:00 03/02/17 08:00 03/02/17 08:00 03/02/17 08:00 Intake and Output: 03/02/17 03/02/17 06:59 18:59 Intake Total 1840 Balance 1840 - Medications Medications: Current Medications Aspirin (Ecotrin) 81 mg PO DAILY [facility] Last Admin: 03/01/17 11:00 Dose: 81 mg Benzocaine/Menthol (Cepacol Sore Throat) 1 kevin MT Q3H PRN PRN Reason: Sore Throat Docusate Sodium (Colace) 100 mg PO BID [facility] Last Admin: 03/01/17 17:26 Dose: 100 mg Gabapentin (Neurontin) 100 mg PO TID [facility] Last Admin: 03/01/17 17:25 Dose: 100 mg Heparin Sodium (Porcine) (Heparin) 5,000 units SC Q12 [facility] Last Admin: 03/01/17 21:35 Dose: 5,000 units Sodium Chloride (Sodium Chloride 0.9%) 1,000 mls @ 100 mls/hr IV .Q10H [facility] Last Admin: 03/02/17 05:44 Dose: Not Given Insulin Aspart (Novolog) 10 unit SC AC [facility] Last Admin: 03/02/17 08:24 Dose: 10 unit Insulin Aspart (Novolog) 0 unit SC ACHS [facility] PRN Reason: Protocol Last Admin: 03/02/17 08:25 Dose: 1 unit Insulin Glargine (Lantus) 30 unit SC HS [facility] Last Admin: 03/01/17 21:33 Dose: 30 units Levothyroxine Sodium (Synthroid) 25 mcg PO DAILY@0630 [facility] Last Admin: 03/02/17 05:44 Dose: 25 mcg Lisinopril (Zestril) 10 mg PO DAILY [facility] Last Admin: 02/28/17 11:26 Dose: 10 mg Meclizine HCl (Antivert) 12.5 mg PO TID PRN PRN Reason: Dizziness Metoprolol Tartrate (Lopressor) 50 mg PO BID [facility] Last Admin: 03/01/17 17:26 Dose: 50 mg Morphine Sulfate (Morphine) 2 mg IVP Q4 PRN PRN Reason: Pain, moderate (4-7) Ondansetron HCl (Zofran Inj) 4 mg IVP Q6H PRN PRN Reason: Nausea/Vomiting Last Admin: 03/01/17 00:25 Dose: 4 mg Pantoprazole Sodium (Protonix Inj) 40 mg IVP DAILY [facility] Last Admin: 03/01/17 11:00 Dose: 40 mg Rosuvastatin Calcium (Crestor) 5 mg PO HS [facility] Last Admin: 03/01/17 21:32 Dose: 5 mg - Labs Labs: 03/02/17 06:15 03/02/17 06:15 PT 9.9 SECONDS (9.7-12.2) 02/27/17 16:50 INR 0.9 02/27/17 16:50 APTT 30 SECONDS (21-34) 02/27/17 16:50 - Constitutional Appears: Non-toxic, No Acute Distress - Head Exam Head Exam: ATRAUMATIC, NORMAL INSPECTION - Respiratory Exam Respiratory Exam: NORMAL BREATHING PATTERN. absent: Respiratory Distress - Cardiovascular Exam Cardiovascular Exam: +S1, +S2 - GI/Abdominal Exam GI & Abdominal Exam: Soft. absent: Distended, Firm, Guarding, Rigid, Tenderness , Rebound - Neurological Exam Neurological Exam: Alert, Awake, Oriented x3 - Psychiatric Exam Psychiatric exam: Normal Affect, Normal Mood - Skin Skin Exam: Normal Color, Warm Assessment and Plan - Assessment and Plan (Free Text) Assessment: 56yo F with PMHx of HTN, hyperlipidemia, DM, hypothyroidism, left foot ulcer, SBO, multiple unknown abdominal surgeries in [place] who presents with abdominal pain and vomiting likely secondary to SBO, now resolved - Afebrile, VSS - Having BMs - Tolerating regular CCD - No further general surgery intervention necessary - Discussed plan with Dr. Grady Ballard PGY-2
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
[2017-03-02] MEDS ORDERED: Pneumococcal 23-Valent Vaccine IM ONE (23:20)
[2017-03-03 06:52] LABS: TOTAL PROTEIN, SERUM 5.2 g/dL (6.1-8.1)
[2017-03-06 17:14] LABS: KAPPA/LAMBDA FREE RATIO 1.82 (0.26-1.65)
[2017-03-08 07:39] LABS: BETA 1 GLOBULIN 0.4 g/dL (0.4-0.6); BETA 2 GLOBULIN 0.4 g/dL (0.2-0.5); GAMMA GLOBULIN 0.8 g/dL (0.8-1.7)
== END 2017-03-02 15:42 | disposition home or self-care (01) | DRG 552 ==
LOC: C.ER 13:57 → C.9OBSV 14:34 → C.9E 19:24 → OBSVTOIN 19:24 → C.3T 19:52
PROVIDERS: ADMIT Hospitalist; ATTEND Hospitalist
DX: K56.60 Unspecified intestinal obstruction (principal); N17.9 Acute kidney failure, unspecified; E11.22 Type 2 diabetes mellitus with diabetic chronic kidney disease; N18.4 Chronic kidney disease, stage 4 (severe); E11.621 Type 2 diabetes mellitus with foot ulcer; L97.529 Non-pressure chronic ulcer of other part of left foot with unspecified severity; E11.65 Type 2 diabetes mellitus with hyperglycemia; E87.5 Hyperkalemia; E86.0 Dehydration; I12.9 Hypertensive chronic kidney disease with stage 1 through stage 4 chronic kidney disease, or unspecified chronic kidney disease; E78.00 Pure hypercholesterolemia, unspecified; E78.5 Hyperlipidemia, unspecified; E03.9 Hypothyroidism, unspecified; Z87.891 Personal history of nicotine dependence; Z79.899 Other long term (current) drug therapy; Z79.4 Long term (current) use of insulin

== ENCOUNTER 2017-06-15 17:17 | Inpatient (IN) | payer MEDICAID, OTHER ==
[2017-06-15] MEDS ORDERED: Sodium Chloride 0.9% 1,000 ML IV ONE (18:53)
[2017-06-15] MEDS ORDERED: Piperacillin/Tazobact 3.375 gm 100 ML IV STA (18:53)
[2017-06-15] MEDS ORDERED: Vancomycin 1 GM 1 GM/250 ML BAG IV ONE (19:00)
[2017-06-15 19:10] LABS: BASO # 0.1 K/uL (0.0-0.2); BASO % 0.9 % (0.0-2.0); EOS # 0.1 K/uL (0.0-0.7); EOS % 1.6 % (0.0-4.0); LYMPH # 2.5 K/uL (1.0-4.3); LYMPH % 31.5 % (20.0-40.0); MEAN CELL VOLUME 86.4 fL (81.0-99.0); MEAN CORPUSCULAR HEMOGLOBIN 29.3 pg (27.0-31.0); MEAN CORPUSCULAR HGB CONC 33.9 g/dL (33.0-37.0); MEAN PLATELET VOLUME 8.1 fL (7.2-11.7); MONO # 0.5 K/uL (0.0-0.8); NRBC % 0.1 % (0.0-2.0); RED CELL DISTRIBUTION WIDTH 13.3 % (11.5-14.5); WHITE BLOOD COUNT 7.8 K/uL (4.8-10.8)
[2017-06-15] MEDS ORDERED: Sodium Chloride 0.9% 1,000 ML ONE (19:18)
[2017-06-15] MEDS ORDERED: Piperacillin/Tazobact 3.375 gm 100 ML IVPB ONE (19:18)
[2017-06-15] MEDS ORDERED: Vancomycin 1 GM 1 GM/250 ML BAG IVPB ONE (19:19)
[2017-06-15 20:13] LABS: CHLORIDE 104 mmol/L (98-107); POTASSIUM 5.2 mmol/L (3.6-5.2); SODIUM 137 mmol/L (132-148)
[2017-06-15 20:15] LABS: BILIRUBIN,TOTAL 0.4 mg/dL (0.2-1.3); GFR AFRICAN-AMERICAN 38
[2017-06-15 20:16] LABS: ALKALINE PHOSPHATASE 94 U/L (38-126); ALT/SGPT 24 U/L (9-52); AST/SGOT 22 U/L (14-36); BLOOD UREA NITROGEN 34 mg/dL (7-17); CARBON DIOXIDE 25 mmol/L (22-30); GLUCOSE,RANDOM 215 mg/dL (65-105)
[2017-06-15 20:17] LABS: CALCIUM 8.7 mg/dl (8.6-10.4)
--- NOTE | 2017-06-15 20:24 | C.PDOC ---
History Of Present Illness 56 year old female who was referred to the ER by size stamper Dr. Thomas yesterday for a chronic left foot plantar diabetic ulcer. Patient states outpatient oral biotic treatment has failed so she was referred for inpatient evaluation. Patient's foot is found to be foul smelling today; she states she had the wound debrided yesterday. Denies pain, fever, or other physical complaints. Patient is noncompliant with her diabetic regiment since 1990 and does not check her finger sticks regularly. Time Seen by Provider: 06/15/17 18:31 Chief Complaint (Nursing): Lower Extremity Problem/Injury History Per: Patient History/Exam Limitations: no limitations Onset/Duration Of Symptoms: Days Current Symptoms Are (Timing): Still Present Recent travel outside of the [place]: No Past Medical History Reviewed: Historical Data, Nursing Documentation, Vital Signs Vital Signs: Last Vital Signs Temp 98.3 F 06/15/17 22:41 Pulse 76 06/15/17 22:41 Resp 18 06/15/17 22:41 BP 123/74 06/15/17 22:41 Pulse Ox 99 06/15/17 22:41 - Medical History PMH: HTN, Hypercholesterolemia Surgical History: No Surg Hx - [facility] Procedures DRAINAGE OF LEFT FOOT SKIN, EXTERNAL APPROACH, DIAGNOSTIC (02/16/17) EXCISION OF L FOOT SUBCU/FASCIA, OPEN APPROACH (02/16/17) Family History: States: Unknown Family Hx - Social History Hx Alcohol Use: No Hx Substance Use: No - Immunization History Hx Tetanus Toxoid Vaccination: No Hx Influenza Vaccination: No Hx Pneumococcal Vaccination: No Review Of Systems Constitutional: Positive for: Other (Usually lethargic, Hopeless, Not employed) . Negative for: Fever, Chills Cardiovascular: Negative for: Chest Pain, Palpitations Respiratory: Negative for: Shortness of Breath Gastrointestinal: Negative for: Nausea, Vomiting Musculoskeletal: Negative for: Foot Pain Skin: Positive for: Other (Ulcer) Neurological: Negative for: Weakness, Numbness Physical Exam - Physical Exam Appears: Non-toxic, Other ( female that appears older than state age, flat affect, obese) Skin: Warm, Dry Head: Atraumatic, Normacephalic Oral Mucosa: Moist Chest: Symmetrical, No Tenderness Cardiovascular: Rhythm Regular, No Murmur Respiratory: Normal Breath Sounds, No Rales, No Rhonchi, No Wheezing Gastrointestinal/Abdominal: Soft, No Tenderness Extremity: Other (1cm ulcer to plantar aspect of left foot tunneling to the 1st MTP) Pulses: Left Dorsalis Pedis: Normal, Right Dorsalis Pedis: Normal Neurological/Psych: Oriented x3, Normal Speech, Normal Cognition ED Course And Treatment - Laboratory Results Result Diagrams: 06/15/17 19:04 06/15/17 19:38 Lab Interpretation: Normal (A1C 10.6 H (c/w avg glu 232)) ECG: Interpreted By Me ECG Rhythm: Sinus Rhythm ECG Interpretation: Normal Rate From EC O2 Sat by Pulse Oximetry: 100 Pulse Ox Interpretation: Normal - Radiology CXR: Interpreted by Me CXR Interpretation: Yes: No Acute Disease - Other Rad L foot X-Ray: Interpreted by Me (+ periosteal lifting @ 1st L MTP are of DM foot ulcer , no SQ gas) Progress Note: EKG, CXR, cultures, urinalysis, and left foot x-ray ordered. Piperacillin, IV fluids, and vancomycin administered. Reevaluation Time: 20:27 Reassessment Condition: Improved - Physician Consult Information Outcome Of Conversation: 2030: d/w Dr. Nuñez- Hospitalist- ok to Admit. Will consult Dr. Thomas- Podiatry who referred pt today Medical Decision Making Medical Decision Making: L foot diabetic foot ulcer with prob osteomyelitis @ L 1st MTP Vanco/Zosyn started empirically. Disposition Doctor Will See Patient In The: Hospital Counseled Patient/Family Regarding: Studies Performed, Diagnosis - Disposition Disposition: HOSPITALIZED Disposition Time: 20:28 Condition: GOOD - Clinical Impression Clinical Impression: Diabetic foot ulcer, Osteomyelitis of left foot - Scribe Statement The provider has reviewed the documentation as recorded by the Kobeiblexa Morris All medical record entries made by the Kobeiblexa were at my direction and personally dictated by me. I have reviewed the chart and agree that the record accurately reflects my personal performance of the history, physical exam, medical decision making, and the department course for this patient. I have also personally directed, reviewed, and agree with the discharge instructions and disposition.
[2017-06-15 23:21] LABS: RBC URINE 2 /hpf (0-3); URINE BACTERIA OCC (<OCC); URINE BILIRUBIN NEGATIVE (NEGATIVE); URINE BLOOD NEGATIVE (NEGATIVE); URINE COLOR Yellow (YELLOW); URINE GLUCOSE (UA) 2+ mg/dL (Normal); URINE KETONE NEGATIVE (NEGATIVE); URINE LEUKOCYTE ESTERASE NEG Leu/uL (Negative); URINE PROTEIN 3+ mg/dL (NEGATIVE); URINE UROBILINOGEN NORMAL mg/dL (0.2-1.0); WBC URINE 2 /hpf (0-5)
[2017-06-16] MEDS: (Lantus) Insulin Glargine, Recombinant SC SCH ×2 (00:34→21:54)
[2017-06-16] MEDS: Piperacill/Tazo 3.375gm in Dex 3.375 GM/50 ML BAG IVPB SCH ×3 (04:05→19:01)
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
[2017-06-16] MEDS: Levothyroxine 25 MCG TAB PO SCH (06:18)
[2017-06-16] MEDS: (Novolog) Insulin Aspart, Recombinant 100 u/ml 10 ml vial SC SCH ×7 (08:09→21:56)
[2017-06-16 08:32] LABS: BASO % 0.7 % (0.0-2.0); EOS # 0.1 K/uL (0.0-0.7); HEMATOCRIT 32.1 % (34.0-47.0); LYMPH % 34.1 % (20.0-40.0); MEAN CELL VOLUME 86.8 fL (81.0-99.0); MEAN CORPUSCULAR HGB CONC 33.5 g/dL (33.0-37.0); MEAN PLATELET VOLUME 8.5 fL (7.2-11.7); MONO # 0.5 K/uL (0.0-0.8); MONO % 7.8 % (0.0-10.0); RED CELL DISTRIBUTION WIDTH 12.8 % (11.5-14.5); WHITE BLOOD COUNT 5.9 K/uL (4.8-10.8)
[2017-06-16 08:52] LABS: POTASSIUM 4.5 mmol/L (3.6-5.2)
[2017-06-16 08:55] LABS: BILIRUBIN,TOTAL 0.5 mg/dL (0.2-1.3); TOTAL PROTEIN 6.4 g/dL (6.3-8.3)
[2017-06-16 08:56] LABS: CALCIUM 8.6 mg/dl (8.6-10.4); MAGNESIUM 1.7 mg/dL (1.6-2.3)
[2017-06-16] MEDS: Pantoprazole 40 mg EC Tab PO SCH (10:19)
[2017-06-16] MEDS: Metoprolol Succinate 50 mg XL Tab PO SCH (10:19)
--- NOTE | 2017-06-16 11:09 | RAD ---
PROCEDURE: CHEST RADIOGRAPH, 1 VIEW HISTORY: Diabetic COMPARISON: 02/27/2017 FINDINGS: LUNGS: Clear. PLEURA: No pneumothorax or pleural fluid seen. CARDIOVASCULAR: Normal. OSSEOUS STRUCTURES: No significant abnormalities. VISUALIZED UPPER ABDOMEN: Normal. OTHER FINDINGS: None. IMPRESSION: No active disease.
--- NOTE | 2017-06-16 11:12 | RAD ---
PROCEDURE: Left Foot Radiographs. HISTORY: plantar 2nd toe MTP ulcer, ? osteo COMPARISON: None. FINDINGS: BONES: No acute fracture. Amputation of 5th digit at base of metatarsal. There is osseous erosion involving the distal aspect of the 1st metatarsal with thick periosteal reaction. Findings suggestive of chronic osteomyelitis. There is minimal periosteal reaction seen about the base of the 4th proximal phalanx. This may indicate focal osteomyelitis. JOINTS: Normal. SOFT TISSUES: Normal. OTHER FINDINGS: None. IMPRESSION: Probable chronic osteomyelitis distal aspect 1st metatarsal. 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 Periosteal reaction base of 4th proximal phalanx, possibly due to osteomyelitis.
--- NOTE | 2017-06-16 20:33 | CP.PCM.PN ---
<Kirill Meehan - Last Filed: 06/16/17 20:31> Subjective - Date & Time of Evaluation Date of Evaluation: 06/16/17 Time of Evaluation: 20:31 - Subjective Subjective: PGY1 Note for Dr. Beatty HPI: Patient seen and examined at bedside. Complaining of pain in her foot. Resting comfortably at the time of examination. No other complaints at this time. Denies chest pain, SOB, N/V/D, F/C Objective - Vital Signs/Intake and Output Vital Signs (last 24 hours): Temp Pulse Resp BP Pulse Ox 97.8 F 75 20 146/78 99 06/16/17 15:00 06/16/17 15:00 06/16/17 15:00 06/16/17 15:00 06/16/17 15:00 Intake and Output: 06/16/17 06/17/17 18:59 06:59 Output Total 2 Balance -2 - Medications Medications: Current Medications Aspirin (Ecotrin) 81 mg PO DAILY [facility] Last Admin: 06/16/17 10:08 Dose: 81 mg Gabapentin (Neurontin) 100 mg PO TID [facility] Last Admin: 06/16/17 17:08 Dose: 100 mg Heparin Sodium (Porcine) (Heparin) 5,000 units SC Q8 [facility] Last Admin: 06/16/17 14:17 Dose: 5,000 units Piperacillin Sod/Tazobactam Sod (Zosyn 3.375 Gm Iv Premix) 3.375 gm in 50 mls @ 100 mls/hr IVPB Q8H [facility] Last Admin: 06/16/17 19:01 Dose: 100 mls/hr Vancomycin HCl 1 gm/ Sodium (Chloride) 250 mls @ 166.7 mls/hr IVPB Q24H [facility] Last Admin: 06/16/17 19:01 Dose: 166.7 mls/hr Insulin Aspart (Novolog) 9 unit SC TIDAC [facility] Last Admin: 06/16/17 17:10 Dose: 9 unit Insulin Aspart (Novolog) 0 unit SC ACHS [facility] PRN Reason: Protocol Last Admin: 06/16/17 17:10 Dose: 4 unit Insulin Glargine (Lantus) 35 unit SC HS [facility] Last Admin: 06/16/17 00:34 Dose: 35 units Levothyroxine Sodium (Synthroid) 25 mcg PO DAILY@0630 [facility] Last Admin: 06/16/17 06:18 Dose: 25 mcg Lisinopril (Zestril) 10 mg PO DAILY [facility] Last Admin: 06/16/17 10:19 Dose: 10 mg Metoprolol Succinate (Toprol Xl) 50 mg PO DAILY [facility] Last Admin: 06/16/17 10:19 Dose: 50 mg Pantoprazole Sodium (Protonix Ec Tab) 40 mg PO DAILY [facility] Last Admin: 06/16/17 10:19 Dose: 40 mg Pneumococcal Polyvalent Vaccine (Pneumovax 23 Vaccine) 0.5 ml IM .ONCE ONE Stop: 06/18/17 10:01 Rosuvastatin Calcium (Crestor) 5 mg PO HS [facility] - Labs Labs: 06/16/17 08:18 06/16/17 08:18 - Constitutional Appears: Well, Non-toxic, No Acute Distress - Head Exam Head Exam: ATRAUMATIC, NORMAL INSPECTION, NORMOCEPHALIC - Eye Exam Eye Exam: EOMI Pupil Exam: NORMAL ACCOMODATION - ENT Exam ENT Exam: Mucous Membranes Moist - Neck Exam Neck Exam: Normal Inspection - Respiratory Exam Respiratory Exam: Clear to Ausculation Bilateral - GI/Abdominal Exam GI & Abdominal Exam: Soft, Normal Bowel Sounds. absent: Distended, Tenderness - Extremities Exam Extremities Exam: Tenderness Additional comments: Dressing on L. Foot C/D/I - Neurological Exam Neurological Exam: Alert, Awake, Oriented x3 - Psychiatric Exam Psychiatric exam: Normal Affect, Normal Mood - Skin Skin Exam: Dry, Intact, Normal Color, Warm Assessment and Plan - Assessment and Plan (Free Text) Assessment: Diabetes Mellitus complicated by Foot Ulcer * Podiatry ([facility]) * F/U reccs * Zosyn 3.375 Q8, Vanc 1g QD * f/u BC, WC * Xray left foot - probable chronic osteo distal 1st MTP, periosteal rxn @ 4th prox. phalanx, possibly due to osteo * f/u arterial doppler LE * f/u Left foot MRI * hemoglobin a1c: 10.6 * POC Glucose 256 * Insulin Aspart 9 U SC TIDAC, Glargine 35 U SC HS, sliding scale * Neurontin 100 mg po TID * Accuchecks Decreased visual acuity * needs outpatient f/u with water hauler Hypertension * Lopressor 50 mg po qd, Lisinopril 10 mg po daily, ASA 81 mg po daily * Monitor Hyperlipidemia * Crestor 5 mg po HS Hypothyroidism * Synthroid 25 mcg po daily Prophylaxis * SCD * Heparin 5000 units SC q8h * Protonix 40 mg IVP daily <Naresh Beatty - Last Filed: 06/17/17 07:52> Objective - Vital Signs/Intake and Output Vital Signs (last 24 hours): Temp Pulse Resp BP Pulse Ox 98.3 F 86 20 148/77 100 06/17/17 00:00 06/17/17 00:00 06/17/17 00:00 06/17/17 00:00 06/17/17 00:00 Intake and Output: 06/17/17 06/17/17 06:59 18:59 Intake Total 650 Output Total 1 Balance 649 - Medications Medications: Current Medications Aspirin (Ecotrin) 81 mg PO DAILY [facility] Last Admin: 06/16/17 10:08 Dose: 81 mg Gabapentin (Neurontin) 100 mg PO TID [facility] Last Admin: 06/16/17 17:08 Dose: 100 mg Heparin Sodium (Porcine) (Heparin) 5,000 units SC Q8 [facility] Last Admin: 06/17/17 05:25 Dose: 5,000 units Piperacillin Sod/Tazobactam Sod (Zosyn 3.375 Gm Iv Premix) 3.375 gm in 50 mls @ 100 mls/hr IVPB Q8H [facility] Last Admin: 06/17/17 04:45 Dose: 100 mls/hr Vancomycin HCl 1 gm/ Sodium (Chloride) 250 mls @ 166.7 mls/hr IVPB Q24H [facility] Last Admin: 06/16/17 19:01 Dose: 166.7 mls/hr Insulin Aspart (Novolog) 9 unit SC TIDAC [facility] Last Admin: 06/16/17 17:10 Dose: 9 unit Insulin Aspart (Novolog) 0 unit SC ACHS [facility] PRN Reason: Protocol Last Admin: 06/16/17 21:56 Dose: Not Given Insulin Glargine (Lantus) 35 unit SC HS [facility] Last Admin: 06/16/17 21:54 Dose: 35 units Levothyroxine Sodium (Synthroid) 25 mcg PO DAILY@0630 [facility] Last Admin: 06/17/17 05:29 Dose: 25 mcg Lisinopril (Zestril) 10 mg PO DAILY [facility] Last Admin: 06/16/17 10:19 Dose: 10 mg Metoprolol Succinate (Toprol Xl) 50 mg PO DAILY [facility] Last Admin: 06/16/17 10:19 Dose: 50 mg Pantoprazole Sodium (Protonix Ec Tab) 40 mg PO DAILY [facility] Last Admin: 06/16/17 10:19 Dose: 40 mg Pneumococcal Polyvalent Vaccine (Pneumovax 23 Vaccine) 0.5 ml IM .ONCE ONE Stop: 06/18/17 10:01 Rosuvastatin Calcium (Crestor) 5 mg PO HS [facility] Last Admin: 06/16/17 21:54 Dose: 5 mg - Labs Labs: 06/16/17 08:18 06/16/17 08:18 Attending/Attestation - Attestation I have personally seen and examined this patient.: Yes I have fully participated in the care of the patient.: Yes I have reviewed all pertinent clinical information, including history, physical exam and plan: Yes Notes (Text): 06/17/17 07:46 Medical Attending: Patient was seen and examined by me. Agree with the above note by the resident. The patient is currently pending MRI of the lower extremity to assess for OM. The XRAY of that foot showed a lot of changes to the bone structure and se has had this infection for quite a long time now. Also arterial dopplers are pending as well to assess the lower extremity thank you Naresh Beatty
[2017-06-17] MEDS: Piperacill/Tazo 3.375gm in Dex 3.375 GM/50 ML BAG IVPB SCH ×3 (04:45→19:47)
[2017-06-17] MEDS: Levothyroxine 25 MCG TAB PO SCH (05:29)
[2017-06-17 07:53] LABS: BASO # 0.1 K/uL (0.0-0.2); EOS # 0.2 K/uL (0.0-0.7); NRBC % 0.2 % (0.0-2.0)
[2017-06-17 08:08] LABS: EOS % 2.2 % (0.0-4.0); HEMATOCRIT 32.3 % (34.0-47.0); LYMPH % 26.8 % (20.0-40.0); MEAN CORPUSCULAR HEMOGLOBIN 28.9 pg (27.0-31.0); MEAN CORPUSCULAR HGB CONC 33.6 g/dL (33.0-37.0); MONO # 0.4 K/uL (0.0-0.8); MONO % 5.9 % (0.0-10.0); RED CELL DISTRIBUTION WIDTH 12.9 % (11.5-14.5); WHITE BLOOD COUNT 7.6 K/uL (4.8-10.8)
[2017-06-17] MEDS: (Novolog) Insulin Aspart, Recombinant 100 u/ml 10 ml vial SC SCH ×7 (08:08→22:07)
[2017-06-17 08:23] LABS: BILIRUBIN,TOTAL 0.4 mg/dL (0.2-1.3); CALCIUM 8.7 mg/dl (8.6-10.4); MAGNESIUM 1.6 mg/dL (1.6-2.3); PHOSPHOROUS 4.4 mg/dL (2.5-4.5); POTASSIUM 4.8 mmol/L (3.6-5.2); TOTAL PROTEIN 6.2 g/dL (6.3-8.3)
[2017-06-17] MEDS: Metoprolol Succinate 50 mg XL Tab PO SCH (10:06)
[2017-06-17] MEDS: Pantoprazole 40 mg EC Tab PO SCH (10:06)
--- NOTE | 2017-06-17 10:27 | CP.PCM.PN ---
<Eddie Flores - Last Filed: 06/17/17 17:08> Subjective - Date & Time of Evaluation Date of Evaluation: 06/17/17 Time of Evaluation: 08:50 - Subjective Subjective: PGY 2 Medicine Note- Dr. Beatty's service Patient seen and examined in no acute distress. Patient states that she has left arch pain when she attempts to ambulate. She admits to feeling warm overnight. Otherwise, she denies subjective chills, nausea, vomiting chest pain , diarrhea or paresthesias at this time. Objective - Vital Signs/Intake and Output Vital Signs (last 24 hours): Temp Pulse Resp BP Pulse Ox 97.9 F 82 20 108/70 98 06/17/17 07:45 06/17/17 07:45 06/17/17 07:45 06/17/17 07:45 06/17/17 07:45 Intake and Output: 06/17/17 06/17/17 06:59 18:59 Intake Total 650 Output Total 1 Balance 649 - Medications Medications: Current Medications Aspirin (Ecotrin) 81 mg PO DAILY [facility] Last Admin: 06/17/17 10:05 Dose: 81 mg Gabapentin (Neurontin) 100 mg PO TID [facility] Last Admin: 06/17/17 10:06 Dose: 100 mg Heparin Sodium (Porcine) (Heparin) 5,000 units SC Q8 [facility] Last Admin: 06/17/17 05:25 Dose: 5,000 units Piperacillin Sod/Tazobactam Sod (Zosyn 3.375 Gm Iv Premix) 3.375 gm in 50 mls @ 100 mls/hr IVPB Q8H [facility] Last Admin: 06/17/17 04:45 Dose: 100 mls/hr Vancomycin HCl 1 gm/ Sodium (Chloride) 250 mls @ 166.7 mls/hr IVPB Q24H [facility] Last Admin: 06/16/17 19:01 Dose: 166.7 mls/hr Insulin Aspart (Novolog) 9 unit SC TIDAC [facility] Last Admin: 06/17/17 08:08 Dose: 9 unit Insulin Aspart (Novolog) 0 unit SC ACHS [facility] PRN Reason: Protocol Last Admin: 06/17/17 08:10 Dose: 3 unit Insulin Glargine (Lantus) 35 unit SC HS [facility] Last Admin: 06/16/17 21:54 Dose: 35 units Levothyroxine Sodium (Synthroid) 25 mcg PO DAILY@0630 [facility] Last Admin: 06/17/17 05:29 Dose: 25 mcg Lisinopril (Zestril) 10 mg PO DAILY [facility] Last Admin: 06/17/17 10:06 Dose: 10 mg Metoprolol Succinate (Toprol Xl) 50 mg PO DAILY [facility] Last Admin: 06/17/17 10:06 Dose: 50 mg Pantoprazole Sodium (Protonix Ec Tab) 40 mg PO DAILY [facility] Last Admin: 06/17/17 10:06 Dose: 40 mg Pneumococcal Polyvalent Vaccine (Pneumovax 23 Vaccine) 0.5 ml IM .ONCE ONE Stop: 06/18/17 10:01 Rosuvastatin Calcium (Crestor) 5 mg PO HS [facility] Last Admin: 06/16/17 21:54 Dose: 5 mg - Labs Labs: 06/17/17 07:41 06/17/17 07:41 - Constitutional Appears: Non-toxic, No Acute Distress - Head Exam Head Exam: ATRAUMATIC, NORMAL INSPECTION, NORMOCEPHALIC - Eye Exam Eye Exam: EOMI, Normal appearance, PERRL Pupil Exam: NORMAL ACCOMODATION - ENT Exam ENT Exam: Mucous Membranes Moist - Neck Exam Neck Exam: Full ROM - Respiratory Exam Respiratory Exam: NORMAL BREATHING PATTERN. absent: Wheezes - Cardiovascular Exam Cardiovascular Exam: +S1, +S2 - GI/Abdominal Exam GI & Abdominal Exam: Soft, Normal Bowel Sounds Additional comments: healed abdominal incision scars noted - Extremities Exam Extremities Exam: Full ROM, Normal Capillary Refill, Tenderness. absent: Calf Tenderness Additional comments: left arch of the foot , dorsalis and posterior tibial pulses intact. Right dorsalis pedis pulses weaker than left - Back Exam Back Exam: Full ROM - Neurological Exam Neurological Exam: Alert, Awake, Oriented x3 - Psychiatric Exam Psychiatric exam: Normal Affect, Normal Mood - Skin Skin Exam: Dry, Warm Assessment and Plan - Assessment and Plan (Free Text) Assessment: Diabetic Foot Ulcer * Podiatry (Dr. Merlos) F/U Reccs. Prior podiatry consult was placed to an attending that no longer covers this hospital and thus it was canceled and assigned to the office of the attending physician that the patient states she went to see outpatient. Per Dr. Merlos's note, patient did not actually see him at his office. Nonetheless, will still accept. * Zosyn 3.375 Q8, Vanc 1g daily, Florastor BID added on * Blood cultures- no growth to date. Wound cultures- GNR. F/U specificities * Xray left foot - probable chronic osteo distal 1st MTP, periosteal rxn of 4th prox. phalanx, possibly due to osteo * F/U Arterial dopplers LE * F/U Left foot MRI Diabetes Mellitus * Hemoglobin a1c: 10.6 * POC Glucose 256 * Insulin Aspart 9 U SC TIDAC, Glargine 35 U SC HS, Insulin sliding scale * Neurontin 100 mg po TID * Accuchecks Decreased visual acuity * Needs outpatient f/u with veterinary laboratory diagnostician Hypertension * Lopressor 50 mg po daily, Lisinopril 10 mg po daily, ASA 81 mg po daily * Monitor Hyperlipidemia * Crestor 5 mg po HS Hypothyroidism * Synthroid 25 mcg po daily Prophylaxis * SCD * Heparin 5000 units SC q8h * Protonix 40 mg IVP daily * Will benefit from Physical therapy. F/U reccs <Naresh Beatty H - Last Filed: 06/17/17 18:14> Objective - Vital Signs/Intake and Output Vital Signs (last 24 hours): Temp Pulse Resp BP Pulse Ox 97.7 F 75 20 168/80 H 99 06/17/17 16:00 06/17/17 16:00 06/17/17 16:00 06/17/17 16:00 06/17/17 16:00 Intake and Output: 06/17/17 06/17/17 06:59 18:59 Intake Total 650 Output Total 1 Balance 649 - Medications Medications: Current Medications Aspirin (Ecotrin) 81 mg PO DAILY [facility] Last Admin: 06/17/17 10:05 Dose: 81 mg Gabapentin (Neurontin) 100 mg PO TID [facility] Last Admin: 06/17/17 17:15 Dose: 100 mg Heparin Sodium (Porcine) (Heparin) 5,000 units SC Q8 [facility] Last Admin: 06/17/17 14:06 Dose: 5,000 units Piperacillin Sod/Tazobactam Sod (Zosyn 3.375 Gm Iv Premix) 3.375 gm in 50 mls @ 100 mls/hr IVPB Q8H [facility] Last Admin: 06/17/17 12:27 Dose: 100 mls/hr Vancomycin HCl 1 gm/ Sodium (Chloride) 250 mls @ 166.7 mls/hr IVPB Q24H [facility] Last Admin: 06/16/17 19:01 Dose: 166.7 mls/hr Insulin Aspart (Novolog) 9 unit SC TIDAC [facility] Last Admin: 06/17/17 17:13 Dose: 9 unit Insulin Aspart (Novolog) 0 unit SC ACHS [facility] PRN Reason: Protocol Last Admin: 06/17/17 17:14 Dose: 3 unit Insulin Glargine (Lantus) 35 unit SC [facility] Last Admin: 06/16/17 21:54 Dose: 35 units Ketorolac Tromethamine (Toradol) 15 mg IVP Q6 PRN PRN Reason: Pain, Mild (1-3) Levothyroxine Sodium (Synthroid) 25 mcg PO DAILY@0630 [facility] Last Admin: 06/17/17 05:29 Dose: 25 mcg Lisinopril (Zestril) 10 mg PO DAILY [facility] Last Admin: 06/17/17 10:06 Dose: 10 mg Metoprolol Succinate (Toprol Xl) 50 mg PO DAILY [facility] Last Admin: 06/17/17 10:06 Dose: 50 mg Pantoprazole Sodium (Protonix Ec Tab) 40 mg PO DAILY [facility] Last Admin: 06/17/17 10:06 Dose: 40 mg Pneumococcal Polyvalent Vaccine (Pneumovax 23 Vaccine) 0.5 ml IM .ONCE ONE Stop: 06/18/17 10:01 Rosuvastatin Calcium (Crestor) 5 mg PO [facility] Last Admin: 06/16/17 21:54 Dose: 5 mg Saccharomyces Boulardii (Florastor) 250 mg PO BID [facility] Last Admin: 06/17/17 17:17 Dose: 250 mg - Labs Labs: 06/17/17 07:41 06/17/17 07:41 Attending/Attestation - Attestation I have personally seen and examined this patient.: Yes I have fully participated in the care of the patient.: Yes I have reviewed all pertinent clinical information, including history, physical exam and plan: Yes Notes (Text): 06/17/17 18:11 Medical Attending: Patient was seen and examined by me. Agree with the above note by the resident. The patient was not in any acute distress when we saw her. It appears the incorrect podiatry service was intially consulted so we consulted run lead who sent her to the ER. The arterial doppler results appear stable. Also on exam we were able to feel the DP and TP pulses faintly. Still pending on the official read of the MRI - likely osteomylitis thank you Naresh Beatty
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
[2017-06-17] MEDS: Saccharomyces Boulardi 250 mg Cap PO SCH (17:17)
[2017-06-17] MEDS: (Lantus) Insulin Glargine, Recombinant SC SCH (22:08)
[2017-06-18] MEDS: Piperacill/Tazo 3.375gm in Dex 3.375 GM/50 ML BAG IVPB SCH ×4 (04:00→19:17)
[2017-06-18] MEDS: Levothyroxine 25 MCG TAB PO SCH (05:38)
[2017-06-18 07:56] LABS: BASO % 0.7 % (0.0-2.0); EOS # 0.1 K/uL (0.0-0.7); EOS % 2.3 % (0.0-4.0); HEMATOCRIT 32.9 % (34.0-47.0); LYMPH # 2.1 K/uL (1.0-4.3); MEAN CELL VOLUME 86.3 fL (81.0-99.0); MEAN CORPUSCULAR HEMOGLOBIN 29.1 pg (27.0-31.0); MEAN CORPUSCULAR HGB CONC 33.7 g/dL (33.0-37.0); MEAN PLATELET VOLUME 8.4 fL (7.2-11.7); MONO # 0.4 K/uL (0.0-0.8); MONO % 7.3 % (0.0-10.0); RED CELL DISTRIBUTION WIDTH 13.1 % (11.5-14.5); WHITE BLOOD COUNT 5.5 K/uL (4.8-10.8)
[2017-06-18] MEDS: (Novolog) Insulin Aspart, Recombinant 100 u/ml 10 ml vial SC SCH ×7 (08:04→21:54)
[2017-06-18 08:06] LABS: BILIRUBIN,TOTAL 0.4 mg/dL (0.2-1.3); CALCIUM 8.7 mg/dl (8.6-10.4); PHOSPHOROUS 3.9 mg/dL (2.5-4.5); TOTAL PROTEIN 6.7 g/dL (6.3-8.3)
[2017-06-18 08:07] LABS: MAGNESIUM 1.5 mg/dL (1.6-2.3)
[2017-06-18 09:40] VITALS: RESP 20
[2017-06-18] MEDS: Metoprolol Succinate 50 mg XL Tab PO SCH (09:56)
[2017-06-18] MEDS: Saccharomyces Boulardi 250 mg Cap PO SCH ×2 (09:56→17:15)
[2017-06-18] MEDS: Pantoprazole 40 mg EC Tab PO SCH (09:56)
[2017-06-18] MEDS ORDERED: Pneumococcal 23-Valent Vaccine IM ONE (10:00)
--- NOTE | 2017-06-18 10:01 | CP.PCM.PN ---
<Hillary Mahajan - Last Filed: 06/18/17 18:24> Subjective - Date & Time of Evaluation Date of Evaluation: 06/18/17 Time of Evaluation: 10:01 - Subjective Subjective: Patient seen and examined at bedside. Patient Doing well at this time however complaining of a cough that is non productive. Patient also wanting some help at home because of history of vision loss. Patient currently lives with daughter but she will be having surgery and is worried her daughter shamir not be able to help her during that time. Pt denies chills, nausea, vomiting, chest pain, SOB, and diarrhea at this time Objective - Vital Signs/Intake and Output Vital Signs (last 24 hours): Temp Pulse Resp BP Pulse Ox 98.3 F 77 20 118/72 96 06/18/17 08:00 06/18/17 08:00 06/18/17 08:00 06/18/17 08:00 06/18/17 08:00 Intake and Output: 06/18/17 06/18/17 06:59 18:59 Intake Total 600 Balance 600 - Medications Medications: Current Medications Aspirin (Ecotrin) 81 mg PO DAILY [facility] Last Admin: 06/18/17 09:56 Dose: 81 mg Gabapentin (Neurontin) 100 mg PO TID [facility] Last Admin: 06/18/17 09:56 Dose: 100 mg Heparin Sodium (Porcine) (Heparin) 5,000 units SC Q8 [facility] Last Admin: 06/18/17 05:37 Dose: 5,000 units Piperacillin Sod/Tazobactam Sod (Zosyn 3.375 Gm Iv Premix) 3.375 gm in 50 mls @ 100 mls/hr IVPB Q8H [facility] Last Admin: 06/18/17 04:00 Dose: 100 mls/hr Vancomycin HCl 1 gm/ Sodium (Chloride) 250 mls @ 166.7 mls/hr IVPB Q24H [facility] Last Admin: 06/17/17 20:35 Dose: 166.7 mls/hr Insulin Aspart (Novolog) 9 unit SC TIDAC [facility] Last Admin: 06/18/17 08:04 Dose: 9 unit Insulin Aspart (Novolog) 0 unit SC ACHS [facility] PRN Reason: Protocol Last Admin: 06/18/17 08:04 Dose: 3 unit Insulin Glargine (Lantus) 35 unit SC HS [facility] Last Admin: 06/17/17 22:08 Dose: 35 units Ketorolac Tromethamine (Toradol) 15 mg IVP Q6 PRN PRN Reason: Pain, Mild (1-3) Levothyroxine Sodium (Synthroid) 25 mcg PO DAILY@0630 [facility] Last Admin: 06/18/17 05:38 Dose: 25 mcg Lisinopril (Zestril) 10 mg PO DAILY [facility] Last Admin: 06/18/17 09:56 Dose: 10 mg Metoprolol Succinate (Toprol Xl) 50 mg PO DAILY [facility] Last Admin: 06/18/17 09:56 Dose: 50 mg Pantoprazole Sodium (Protonix Ec Tab) 40 mg PO DAILY [facility] Last Admin: 06/18/17 09:56 Dose: 40 mg Rosuvastatin Calcium (Crestor) 5 mg PO [facility] Last Admin: 06/17/17 21:50 Dose: 5 mg Saccharomyces Boulardii (Florastor) 250 mg PO BID [facility] Last Admin: 06/18/17 09:56 Dose: 250 mg - Labs Labs: 06/18/17 07:42 06/18/17 07:42 - Constitutional Appears: Non-toxic, No Acute Distress - Head Exam Head Exam: NORMAL INSPECTION - Eye Exam Eye Exam: EOMI - ENT Exam ENT Exam: Mucous Membranes Moist - Respiratory Exam Respiratory Exam: Clear to Ausculation Bilateral, NORMAL BREATHING PATTERN - Cardiovascular Exam Cardiovascular Exam: REGULAR RHYTHM, +S1, +S2 - GI/Abdominal Exam GI & Abdominal Exam: Soft, Normal Bowel Sounds. absent: Tenderness - Extremities Exam Extremities Exam: Normal Capillary Refill. absent: Tenderness Additional comments: Decreased sensation of left foot and lower leg. Positional sense in tact. Ulcer on pad of left foot under 1st MTP joint. Undermined. Punched out appearance with 5mm depth. Red base and surrounding erythema. Left foot and ankle noticeably larger than the right. - Neurological Exam Neurological Exam: Alert, Awake, Oriented x3 - Psychiatric Exam Psychiatric exam: Normal Affect, Normal Mood - Skin Skin Exam: Dry, Intact, Warm Assessment and Plan - Assessment and Plan (Free Text) Assessment: Diabetic Foot Ulcer * Podiatry (Dr. Merlos) F/U Reccs. Prior podiatry consult was placed to an attending that no longer covers this hospital and thus it was canceled and assigned to the office of the attending physician that the patient states she went to see outpatient. Per Dr. Merlos's note, patient did not actually see him at his office. Nonetheless, will still accept. Patient cleared from podiatry prospective. * Zosyn 3.375 Q8, Vanc 1g daily, Florastor BID added on * Blood cultures- no growth to date. Wound cultures- E. coli, E. feacalis, missy albicans * Xray left foot - probable chronic osteo distal 1st MTP, periosteal rxn of 4th prox. phalanx, possibly due to osteo * Arterial dopplers LE: neg * Left foot MRI: no osteomyelitis Diabetes Mellitus * Hemoglobin a1c: 10.6 * POC Glucose 256 * Insulin Aspart 9 U SC TIDAC, Glargine 35 U SC HS, Insulin sliding scale * Neurontin 100 mg po TID * Accuchecks Decreased visual acuity * Needs outpatient f/u with acid pump operator Hypertension * Lopressor 50 mg po daily, Lisinopril 10 mg po daily, ASA 81 mg po daily * Monitor Hyperlipidemia * Crestor 5 mg po HS Hypothyroidism * Synthroid 25 mcg po daily Prophylaxis * SCD * Heparin 5000 units SC q8h * Protonix 40 mg IVP daily * Will benefit from Physical therapy. F/U reccs Disposition: Patient cleared from podiatry with MRI negative for osteomyelitis. Patient likely D/C tomorrow (06/19) with antibiotics. <Chidi Vidales - Last Filed: 06/18/17 18:37> Objective - Vital Signs/Intake and Output Vital Signs (last 24 hours): Temp Pulse Resp BP Pulse Ox 98.0 F 72 20 152/81 H 99 06/18/17 15:00 06/18/17 15:00 06/18/17 15:00 06/18/17 15:00 06/18/17 15:00 Intake and Output: 06/18/17 06/18/17 06:59 18:59 Intake Total 600 500 Balance 600 500 - Medications Medications: Current Medications Aspirin (Ecotrin) 81 mg PO DAILY [facility] Last Admin: 06/18/17 09:56 Dose: 81 mg Gabapentin (Neurontin) 100 mg PO TID [facility] Last Admin: 06/18/17 17:15 Dose: 100 mg Heparin Sodium (Porcine) (Heparin) 5,000 units SC Q8 [facility] Last Admin: 06/18/17 13:53 Dose: 5,000 units Piperacillin Sod/Tazobactam Sod (Zosyn 3.375 Gm Iv Premix) 3.375 gm in 50 mls @ 100 mls/hr IVPB Q8H [facility] Last Admin: 06/18/17 11:37 Dose: 100 mls/hr Vancomycin HCl 1 gm/ Sodium (Chloride) 250 mls @ 166.7 mls/hr IVPB Q24H [facility] Last Admin: 06/17/17 20:35 Dose: 166.7 mls/hr Insulin Aspart (Novolog) 0 unit SC ACHS [facility] PRN Reason: Protocol Last Admin: 06/18/17 17:10 Dose: 3 unit Insulin Aspart (Novolog) 10 unit SC TIDAC [facility] Last Admin: 06/18/17 17:10 Dose: 10 unit Insulin Glargine (Lantus) 40 unit SC HS [facility] Ketorolac Tromethamine (Toradol) 15 mg IVP Q6 PRN PRN Reason: Pain, Mild (1-3) Levothyroxine Sodium (Synthroid) 25 mcg PO DAILY@0630 [facility] Last Admin: 06/18/17 05:38 Dose: 25 mcg Lisinopril (Zestril) 10 mg PO DAILY [facility] Last Admin: 06/18/17 09:56 Dose: 10 mg Metoprolol Succinate (Toprol Xl) 50 mg PO DAILY [facility] Last Admin: 06/18/17 09:56 Dose: 50 mg Mupirocin (Bactroban Ointment) 0 gm TOP BID [facility] Last Admin: 06/18/17 18:13 Dose: 1 appl Pantoprazole Sodium (Protonix Ec Tab) 40 mg PO DAILY [facility] Last Admin: 06/18/17 09:56 Dose: 40 mg Rosuvastatin Calcium (Crestor) 5 mg PO HS [facility] Last Admin: 06/17/17 21:50 Dose: 5 mg Saccharomyces Boulardii (Florastor) 250 mg PO BID [facility] Last Admin: 06/18/17 17:15 Dose: 250 mg - Labs Labs: 06/18/17 07:42 06/18/17 07:42 Attending/Attestation - Attestation I have personally seen and examined this patient.: Yes I have fully participated in the care of the patient.: Yes I have reviewed all pertinent clinical information, including history, physical exam and plan: Yes Notes (Text): 06/18/17 18:36 Patient was seen and examined at bedside with the resident MRI of the foot is negative for osteomyelitis Continue IV antibiotics for now . We will discharge the patient on oral antibiotics and follow-up with podiatry I discussed the plan of care with the resident and agree with the assessment and plan documented.
--- NOTE | 2017-06-18 10:04 | VASCLAB ---
STUDY DESCRIPTION: HISTORY: left foot diabetic ulcer PRIORS: None. TECHNIQUE: Pulse volume recording waveforms and segmental pressures of bilateral lower extremities at multiple levels were obtained. Ankle Brachial Indices (ABIs) were calculated. Report prepared by biomedical engineering technologist. RIGHT LOWER EXTREMITY: * Brachial artery: Pressure - 149 mmHg. * High thigh: Pressure - mmHg: Ratio - : PVR waveform - Pulsatile * Low thigh: Pressure - 200 mmHg: Ratio - PVR waveform: Pulsatile * Calf: Pressure - 123 mmHg: Ratio - PVR waveform: Pulsatile * Posterior tibial Artery: Pressure - 110 mmHg: Ratio - 0.74 PVR waveform: Pulsatile * Dorsalis pedis Artery: Pressure - 136 mmHg: Ratio - 0.91 PVR waveform: Pulsatile * Great toe: Pressure - 135 mmHg: Ratio - 0.91 PVR waveform: Pulsatile Ankle brachial index (BROOKE): 0.91 LEFT LOWER EXTREMITY: * Brachial artery: Pressure - 139 mmHg. * High thigh: Pressure - mmHg: Ratio - : PVR waveform - Pulsatile * Low thigh: Pressure - 220 mmHg: Ratio - PVR waveform: Pulsatile * Calf: Pressure - 131 mmHg: Ratio - 0.88 PVR waveform: Pulsatile * Posterior tibial Artery: Pressure - 133 mmHg: Ratio - 0.89 PVR waveform: Pulsatile * Dorsalis pedis Artery: Pressure - 150 mmHg: Ratio - 1.01 PVR waveform: Pulsatile * Great toe: Pressure - 103 mmHg: Ratio - 0.69 PVR waveform: Pulsatile Ankle brachial index (BROOKE): 1.01 OTHER FINDINGS: Right: Left: IMPRESSION: Right: Midly reduced perfusion at rest of the right lower extremity at tibial levels. Recommend CTA or angiogram to further characterize tibial vessels and plan endovascular repair. Left: There was no evidence of hemodynamically significant arterial insufficiency in the left lower extremity.
--- NOTE | 2017-06-18 12:21 | MRI ---
PROCEDURE: HISTORY: left 1st metatarsal ulcer, suspected OM COMPARISON: TECHNIQUE: FINDINGS: Patient status post resection of the 5th metatarsal. There is degenerative change at the 1st metatarsophalangeal joint. There is a subjacent soft tissue ulcer along the plantar aspect of the foot measuring 2.7 centimeters in length. There is no evidence of osteomyelitis. Otherwise the visualized flexor and extensor tendon groups are intact. No abscess is observed. IMPRESSION: 2.7 centimeter plantar ulcer all subjacent to the 1st metatarsal-phalangeal joint. No evidence of osteomyelitis. Degenerative changes of the 1st metatarsophalangeal joint. Status post resection of the 5th metatarsal.
--- NOTE | 2017-06-18 12:38 | CARD ---
APPROVED REPORT EKG Measurement Heart [id number] <Conclusion> Normal sinus rhythm Normal ECG
--- NOTE | 2017-06-18 13:42 | CP.PCM.PN ---
<Niki Umana - Last Filed: 06/18/17 13:45> Subjective - Date & Time of Evaluation Date of Evaluation: 06/18/17 Time of Evaluation: 12:15 - Subjective Subjective: Podiatry Progress Note- Dr. Merlos: 56 yo diabetic female patient seen at bedside with Dr. Merlos today for f/u of left foot plantar ulceration. Pt seen resting in bed at time of visit with dressing c.d.i to her left foot. Pt denies any pain or discomfort to the foot at this time. Reports wearing the surgical shoe at all times for ambulation and says she has been trying to elevate her feet. Says she has had this ulcer for over a year. Reports that she recently saw another traveling electrician in the office who advised her to proceed to emergency room for evaluation. Denies f/n/v/c/sob/cp at this time. Objective - Vital Signs/Intake and Output Vital Signs (last 24 hours): Temp Pulse Resp BP Pulse Ox 98.3 F 77 20 118/72 96 06/18/17 08:00 06/18/17 08:00 06/18/17 08:00 06/18/17 08:00 06/18/17 08:00 Intake and Output: 06/18/17 06/18/17 06:59 18:59 Intake Total 600 Balance 600 - Medications Medications: Current Medications Aspirin (Ecotrin) 81 mg PO DAILY [facility] Last Admin: 06/18/17 09:56 Dose: 81 mg Gabapentin (Neurontin) 100 mg PO TID [facility] Last Admin: 06/18/17 09:56 Dose: 100 mg Heparin Sodium (Porcine) (Heparin) 5,000 units SC Q8 [facility] Last Admin: 06/18/17 05:37 Dose: 5,000 units Piperacillin Sod/Tazobactam Sod (Zosyn 3.375 Gm Iv Premix) 3.375 gm in 50 mls @ 100 mls/hr IVPB Q8H [facility] Last Admin: 06/18/17 11:37 Dose: 100 mls/hr Vancomycin HCl 1 gm/ Sodium (Chloride) 250 mls @ 166.7 mls/hr IVPB Q24H [facility] Last Admin: 06/17/17 20:35 Dose: 166.7 mls/hr Insulin Aspart (Novolog) 9 unit SC TIDAC [facility] Last Admin: 06/18/17 11:36 Dose: 9 unit Insulin Aspart (Novolog) 0 unit SC [facility] PRN Reason: Protocol Last Admin: 06/18/17 11:36 Dose: 2 unit Insulin Glargine (Lantus) 35 unit SC [facility] Last Admin: 06/17/17 22:08 Dose: 35 units Ketorolac Tromethamine (Toradol) 15 mg IVP Q6 PRN PRN Reason: Pain, Mild (1-3) Levothyroxine Sodium (Synthroid) 25 mcg PO DAILY@0630 [facility] Last Admin: 06/18/17 05:38 Dose: 25 mcg Lisinopril (Zestril) 10 mg PO DAILY [facility] Last Admin: 06/18/17 09:56 Dose: 10 mg Metoprolol Succinate (Toprol Xl) 50 mg PO DAILY [facility] Last Admin: 06/18/17 09:56 Dose: 50 mg Pantoprazole Sodium (Protonix Ec Tab) 40 mg PO DAILY [facility] Last Admin: 06/18/17 09:56 Dose: 40 mg Rosuvastatin Calcium (Crestor) 5 mg PO HS [facility] Last Admin: 06/17/17 21:50 Dose: 5 mg Saccharomyces Boulardii (Florastor) 250 mg PO BID [facility] Last Admin: 06/18/17 09:56 Dose: 250 mg - Labs Labs: 06/18/17 07:42 06/18/17 07:42 - Constitutional Appears: Non-toxic, No Acute Distress - Extremities Exam Extremities Exam: absent: Calf Tenderness Additional comments: Left lower extremity focused exam: Vasc: DP/PT pulses palpable 2/4, CFT < 3 seconds to all digits, skin temperature warm to warm from proximal to distal Neuro: pedal sensation is grossly diminished Derm: superficial ulceration noted to the plantar aspect of the left 1st metatarsal head measuring approximately 0.5 cm by 0.5 cm by 0.3 cm with graunlar base and hyperkeratotic rim, no drainage noted,no malodor, no calor, no ascending cellulitis, neg tracking or undermining, neg probe to bone - Neurological Exam Neurological Exam: Alert, Awake, Oriented x3 - Psychiatric Exam Psychiatric exam: Normal Affect, Normal Mood Assessment and Plan - Assessment and Plan (Free Text) Assessment: 56 year old female with superficial ulceration of left foot 2/2 DM Plan: Pt S&E at bedside with attending Dr. Merlos present chart, labs, vitals reviewed: afebrile, WBC 5.5 today Left foot wound cx: + E. coli (heavy), + E. faecalis (moderate), + missy albicans (mod) IV abx as per primary team: on zosyn & vanco Left foot xray: Probable chronic osteomyelitis distal aspect 1st metatarsal. 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 Periosteal reaction base of 4th proximal phalanx, possibly due to osteomyelitis. podiatry to follow patient while in house Low ext MRI: negative for OM Foot redressed with DSD, bactroban ordered (to be applied tomorrow) Stable per podiatry Pt may follow up with Dr. Merlos as outpatient or her previous traveling electrician Will follow while in house <Herrera Merlos - Last Filed: 06/19/17 11:12> Objective - Vital Signs/Intake and Output Vital Signs (last 24 hours): Temp Pulse Resp BP Pulse Ox 98.4 F 77 20 131/74 98 06/19/17 09:20 06/19/17 09:20 06/19/17 09:20 06/19/17 09:20 06/19/17 09:20 Intake and Output: 06/19/17 06/19/17 06:59 18:59 Intake Total 1050 Balance 1050 - Medications Medications: Current Medications Aspirin (Ecotrin) 81 mg PO DAILY [facility] Last Admin: 06/19/17 10:07 Dose: 81 mg Gabapentin (Neurontin) 100 mg PO TID [facility] Last Admin: 06/19/17 10:07 Dose: 100 mg Heparin Sodium (Porcine) (Heparin) 5,000 units SC Q8 [facility] Last Admin: 06/19/17 05:34 Dose: 5,000 units Piperacillin Sod/Tazobactam Sod (Zosyn 3.375 Gm Iv Premix) 3.375 gm in 50 mls @ 100 mls/hr IVPB Q8H [facility] Last Admin: 06/19/17 03:20 Dose: 100 mls/hr Vancomycin HCl 1 gm/ Sodium (Chloride) 250 mls @ 166.7 mls/hr IVPB Q24H [facility] Last Admin: 06/18/17 19:53 Dose: 166.7 mls/hr Insulin Aspart (Novolog) 0 unit SC ACHS [facility] PRN Reason: Protocol Last Admin: 06/19/17 08:28 Dose: 3 unit Insulin Aspart (Novolog) 10 unit SC TIDAC [facility] Last Admin: 06/19/17 08:28 Dose: 10 unit Insulin Glargine (Lantus) 40 unit SC HS [facility] Last Admin: 06/18/17 21:58 Dose: 40 units Levothyroxine Sodium (Synthroid) 25 mcg PO DAILY@0630 [facility] Last Admin: 06/19/17 05:34 Dose: 25 mcg Lisinopril (Zestril) 10 mg PO DAILY [facility] Last Admin: 06/19/17 10:07 Dose: 10 mg Metoprolol Succinate (Toprol Xl) 50 mg PO DAILY [facility] Last Admin: 06/19/17 10:06 Dose: 50 mg Mupirocin (Bactroban Ointment) 0 gm TOP BID [facility] Last Admin: 06/19/17 10:07 Dose: 1 appl Pantoprazole Sodium (Protonix Ec Tab) 40 mg PO DAILY [facility] Last Admin: 06/19/17 10:06 Dose: 40 mg Rosuvastatin Calcium (Crestor) 5 mg PO [facility] Last Admin: 06/18/17 21:57 Dose: 5 mg Saccharomyces Boulardii (Florastor) 250 mg PO BID [facility] Last Admin: 06/19/17 10:07 Dose: 250 mg - Labs Labs: 06/19/17 08:24 06/19/17 08:24 Attending/Attestation - Attestation I have personally seen and examined this patient.: Yes I have fully participated in the care of the patient.: Yes I have reviewed all pertinent clinical information, including history, physical exam and plan: Yes Notes (Text): 06/19/17 11:11 Pt seen at bedside with resident. MRI is negative for Osteo. Wound care orders were written.
[2017-06-18] MEDS: Magnesium Sulfate 1 gm in D5W 1 GM/100 ML BAG IVPB SCH ×2 (14:34→15:55)
[2017-06-18] MEDS ORDERED: (Lantus) Insulin Glargine, Recombinant SC SCH (22:00)
[2017-06-19] MEDS: Piperacill/Tazo 3.375gm in Dex 3.375 GM/50 ML BAG IVPB SCH ×2 (03:20→11:48)
[2017-06-19] MEDS: Levothyroxine 25 MCG TAB PO SCH (05:34)
[2017-06-19] MEDS: (Novolog) Insulin Aspart, Recombinant 100 u/ml 10 ml vial SC SCH ×4 (08:28→11:48)
[2017-06-19 08:47] LABS: BASO # 0.1 K/uL (0.0-0.2); EOS # 0.1 K/uL (0.0-0.7); HEMATOCRIT 37.1 % (34.0-47.0); LYMPH # 2.4 K/uL (1.0-4.3); LYMPH % 31.9 % (20.0-40.0); MEAN CELL VOLUME 86.4 fL (81.0-99.0); MEAN CORPUSCULAR HEMOGLOBIN 29.7 pg (27.0-31.0); MEAN CORPUSCULAR HGB CONC 34.4 g/dL (33.0-37.0); MONO # 0.4 K/uL (0.0-0.8); MONO % 5.5 % (0.0-10.0); NRBC % 0.3 % (0.0-2.0); RED CELL DISTRIBUTION WIDTH 13.1 % (11.5-14.5); WHITE BLOOD COUNT 7.4 K/uL (4.8-10.8)
[2017-06-19 09:15] LABS: POTASSIUM 4.6 mmol/L (3.6-5.2)
[2017-06-19 09:17] LABS: BILIRUBIN,TOTAL 0.4 mg/dL (0.2-1.3); TOTAL PROTEIN 7.6 g/dL (6.3-8.3)
[2017-06-19 09:18] LABS: MAGNESIUM 1.9 mg/dL (1.6-2.3); PHOSPHOROUS 4.1 mg/dL (2.5-4.5)
[2017-06-19] MEDS: Pantoprazole 40 mg EC Tab PO SCH (10:06)
[2017-06-19] MEDS: Metoprolol Succinate 50 mg XL Tab PO SCH (10:06)
[2017-06-19] MEDS: Saccharomyces Boulardi 250 mg Cap PO SCH (10:07)
--- NOTE | 2017-06-19 11:17 | CP.PCM.PN ---
Subjective - Date & Time of Evaluation Date of Evaluation: 06/19/17 Time of Evaluation: 11:15 - Subjective Subjective: Pt seen at bedside for f/u left foot ulcer. Pt in NAD. MRI negative for osteo. Pt will be D/C to home today on abx. Will give RX for walker to help in ambulation. Will speak to home weatherizing worker about home care nursing to perform wound care. Pt can f/u with her previous Water Softener Servicer And Installer when D/C to home. Pt to go home with the Bactroban cream for wound care. Objective - Vital Signs/Intake and Output Vital Signs (last 24 hours): Temp Pulse Resp BP Pulse Ox 98.4 F 77 20 131/74 98 06/19/17 09:20 06/19/17 09:20 06/19/17 09:20 06/19/17 09:20 06/19/17 09:20 Intake and Output: 06/19/17 06/19/17 06:59 18:59 Intake Total 1050 Balance 1050 - Medications Medications: Current Medications Aspirin (Ecotrin) 81 mg PO DAILY [facility] Last Admin: 06/19/17 10:07 Dose: 81 mg Gabapentin (Neurontin) 100 mg PO TID [facility] Last Admin: 06/19/17 10:07 Dose: 100 mg Heparin Sodium (Porcine) (Heparin) 5,000 units SC Q8 [facility] Last Admin: 06/19/17 05:34 Dose: 5,000 units Piperacillin Sod/Tazobactam Sod (Zosyn 3.375 Gm Iv Premix) 3.375 gm in 50 mls @ 100 mls/hr IVPB Q8H [facility] Last Admin: 06/19/17 03:20 Dose: 100 mls/hr Vancomycin HCl 1 gm/ Sodium (Chloride) 250 mls @ 166.7 mls/hr IVPB Q24H [facility] Last Admin: 06/18/17 19:53 Dose: 166.7 mls/hr Insulin Aspart (Novolog) 0 unit SC ACHS [facility] PRN Reason: Protocol Last Admin: 06/19/17 08:28 Dose: 3 unit Insulin Aspart (Novolog) 10 unit SC TIDAC [facility] Last Admin: 06/19/17 08:28 Dose: 10 unit Insulin Glargine (Lantus) 40 unit SC HS [facility] Last Admin: 06/18/17 21:58 Dose: 40 units Levothyroxine Sodium (Synthroid) 25 mcg PO DAILY@0630 [facility] Last Admin: 06/19/17 05:34 Dose: 25 mcg Lisinopril (Zestril) 10 mg PO DAILY [facility] Last Admin: 06/19/17 10:07 Dose: 10 mg Metoprolol Succinate (Toprol Xl) 50 mg PO DAILY [facility] Last Admin: 06/19/17 10:06 Dose: 50 mg Mupirocin (Bactroban Ointment) 0 gm TOP BID [facility] Last Admin: 06/19/17 10:07 Dose: 1 appl Pantoprazole Sodium (Protonix Ec Tab) 40 mg PO DAILY [facility] Last Admin: 06/19/17 10:06 Dose: 40 mg Rosuvastatin Calcium (Crestor) 5 mg PO HS [facility] Last Admin: 06/18/17 21:57 Dose: 5 mg Saccharomyces Boulardii (Florastor) 250 mg PO BID [facility] Last Admin: 06/19/17 10:07 Dose: 250 mg - Labs Labs: 06/19/17 08:24 06/19/17 08:24
[2017-06-19 17:30] VITALS: BP 163/78; PULSE 70; TEMP 98.3; O2SAT 100
--- NOTE | 2017-06-19 19:12 | CP.PCM.DIS ---
<Hillary Mahajan - Last Filed: 06/19/17 18:58> Provider - Provider Date of Admission: 06/15/17 20:24 Attending physician: Isidoro Nuñez MD Time Spent in preparation of Discharge (in minutes): 35 Hospital Course - Lab Results Lab Results: Micro Results 06/15/17 20:25 Foot - Left Gram Stain - Final 06/15/17 20:25 Foot - Left Wound Culture - Final Escherichia Coli Enterococcus Faecalis Patrizia Albicans Most Recent Lab Values WBC 7.4 K/uL (4.8-10.8) 06/19/17 08:24 RBC 4.30 Mil/uL (3.80-5.20) 06/19/17 08:24 Hgb 12.8 g/dL (11.0-16.0) 06/19/17 08:24 Hct 37.1 % (34.0-47.0) 06/19/17 08:24 MCV 86.4 fL (81.0-99.0) 06/19/17 08:24 MCH 29.7 pg (27.0-31.0) 06/19/17 08:24 MCHC 34.4 g/dL (33.0-37.0) 06/19/17 08:24 RDW 13.1 % (11.5-14.5) 06/19/17 08:24 Plt Count 233 K/uL (130-400) 06/19/17 08:24 MPV 9.0 fL (7.2-11.7) 06/19/17 08:24 Neut % (Auto) 59.6 % (50.0-75.0) 06/19/17 08:24 Lymph % (Auto) 31.9 % (20.0-40.0) 06/19/17 08:24 [place] % (Auto) 5.5 % (0.0-10.0) 06/19/17 08:24 Eos % (Auto) 2.0 % (0.0-4.0) 06/19/17 08:24 Baso % (Auto) 1.0 % (0.0-2.0) 06/19/17 08:24 Neut # 4.4 K/uL (1.8-7.0) 06/19/17 08:24 Lymph # 2.4 K/uL (1.0-4.3) 06/19/17 08:24 [place] # 0.4 K/uL (0.0-0.8) 06/19/17 08:24 Eos # 0.1 K/uL (0.0-0.7) 06/19/17 08:24 Baso # 0.1 K/uL (0.0-0.2) 06/19/17 08:24 Sodium 138 mmol/L (132-148) 06/19/17 08:24 Potassium 4.6 mmol/L (3.6-5.2) 06/19/17 08:24 Chloride 106 mmol/L (98-107) 06/19/17 08:24 Carbon Dioxide 22 mmol/L (22-30) 06/19/17 08:24 Anion Gap 15 (10-20) 06/19/17 08:24 BUN 27 mg/dL (7-17) H 06/19/17 08:24 Creatinine 2.1 MG/DL (0.7-1.2) H 06/19/17 08:24 Est GFR ( Amer) 30 06/19/17 08:24 Est GFR (Non-Af Amer) 25 06/19/17 08:24 POC Glucose (mg/dL) 191 mg/dL (65-110) H 06/19/17 16:40 Random Glucose 233 mg/dL (65-105) H 06/19/17 08:24 Hemoglobin A1c 10.6 % (4.2-6.5) H 06/15/17 19:04 Calcium 9.0 mg/dl (8.6-10.4) 06/19/17 08:24 Phosphorus 4.1 mg/dL (2.5-4.5) 06/19/17 08:24 Magnesium 1.9 mg/dL (1.6-2.3) 06/19/17 08:24 Total Bilirubin 0.4 mg/dL (0.2-1.3) 06/19/17 08:24 AST 24 U/L (14-36) 06/19/17 08:24 ALT 21 U/L (9-52) 06/19/17 08:24 Alkaline Phosphatase 90 U/L (38-126) 06/19/17 08:24 Total Protein 7.6 g/dL (6.3-8.3) 06/19/17 08:24 Albumin 3.9 g/dL (3.5-5.0) 06/19/17 08:24 Globulin 3.7 gm/dL (2.2-3.9) 06/19/17 08:24 Albumin/Globulin Ratio 1.0 (1.0-2.1) 06/19/17 08:24 Urine Color Yellow (YELLOW) 06/15/17 23:14 Urine Clarity Hazy (Clear) 06/15/17 23:14 Urine pH 6.0 (5.0-8.0) 06/15/17 23:14 Ur Specific [place] 1.015 (1.003-1.030) 06/15/17 23:14 Urine Protein 3+ mg/dL (NEGATIVE) H 06/15/17 23:14 Urine Glucose (UA) 2+ mg/dL (Normal) H 06/15/17 23:14 Urine Ketones Negative mg/dL (NEGATIVE) 06/15/17 23:14 Urine Blood Negative (NEGATIVE) 06/15/17 23:14 Urine Nitrate Negative (NEGATIVE) 06/15/17 23:14 Urine Bilirubin Negative (NEGATIVE) 06/15/17 23:14 Urine Urobilinogen Normal mg/dL (0.2-1.0) 06/15/17 23:14 Ur Leukocyte Esterase Neg Blossom/uL (Negative) 06/15/17 23:14 Urine WBC (Auto) 2 /hpf (0-5) 06/15/17 23:14 Urine RBC (Auto) 2 /hpf (0-3) 06/15/17 23:14 Ur Squamous Epith Cells 10 /hpf (0-5) H 06/15/17 23:14 Urine Bacteria Occ (<OCC) H 06/15/17 23:14 Serum Ketones Negative (NEGATIVE) 06/15/17 19:38 - Hospital Course Hospital Course: Upon admission: Pt is a 56 y/o Greek speaking female with PMH DM, HTN, HLD, hypothyroidism who presents to the ED for diabetic foot ulcer of the left foot pad. Patient says she has been having problems with this foot for one and a half years but 2 weeks ago she noticed a foul odor coming from her foot. Patient says in the past when she came back from [place] the ulcer "burst" so she came to the hospital and was given antibiotics which helped. Patient says she has not had problems with her foot since then until 2 weeks ago. Patient made her first appointment with the addressograph operator one day ago and while she was there the addressograph operator told her she needed to come to the ED for possible infection. Patient says she is also having trouble seeing out of the right eye. Patient has had this previously in the left eye and when she went to the sustainability analyst she was told that she had "blood in the eye" and would need surgery. Patient is now worried the same thing is happening with her right eye. Patient says she cannot see well even with her glasses now. Patient denies PATTERSON, F/C, CP/SOB, AP/N/V/D. Hospital Course: Patient was admitted for diabetic foot ulcer of the left foot pad with possibility of Osteomyelitis. In the ED foot Xray was obtained which reports no acute fracture, Ambulation of the 5th digit at base of metatarsal.There is osseous erosion involving the distal aspect of of the 1st metatarsal with thick periosteal reaction. Finding suggestive of chronic osteomylitis. There is minimal periosteal reaction seen at the base of the 4th proximal phalanx may indicate focal osteomyelitis. The vitals were stable, patient was afrebrile, hemogram was within normal limits without elevation of WBC 5.5. Patient was started on Vanco and Zozyn. MRI of foot, Arterial Doppler, and Podiatry consult was ordered. MRI on 06/16 showed 2.7 centimeter plantar ulcer subajacent to the 1st metatarsal-phalangeal joint. No evidence of osteomyelitis . Degenerative changes of the 1st metatarsalphalangeal joint. The arterial doppler of lower ext showed no evidence of arterial insufficiency in the left ext and mildly reduced perfusion at right lower ext at tibial level. As per Podiatry consultation, there was no evidence of Osteomeyilits on MRI. Patient cleared for discharged home by podiatry with ABX and walker for ambulation. Patient was seen and evaluated at bedside, denies fever,chills, PATTERSON, CP, SOB, N/V /D/C, dysuria, and LE pain and swelling. Patient is stable for discharge per Dr. Vidales. Patient to f/u with primary care provider for kidney function labs. Patient to take augmentin 875 mg BID for 7 days. - Date & Time of H&P Date of H&P: 06/16/17 Time of H&P: 04:50 Discharge Exam - Head Exam Head Exam: NORMAL INSPECTION - Eye Exam Eye Exam: EOMI Pupil Exam: PERRL - ENT Exam ENT Exam: Mucous Membranes Moist - Respiratory Exam Respiratory Exam: Clear to PA & Lateral, NORMAL BREATHING PATTERN, UNREMARKABLE - Cardiovascular Exam Cardiovascular Exam: REGULAR RHYTHM, +S1, +S2 - GI/Abdominal Exam GI & Abdominal Exam: Normal Bowel Sounds, Unremarkable - Extremities Exam Additional comments: Bandage to right foot c/d/i. - Neurological Exam Neurological exam: Alert, Oriented x3 - Psychiatric Exam Psychiatric exam: Normal Affect, Normal Mood - Skin Skin Exam: Dry, Intact, Normal Color, Warm Discharge Plan - Discharge Medications Prescriptions: Amoxicillin/Clavulanate [Augmentin 875 MG-125 MG] 1 tab PO BID #14 tab - Follow Up Plan Condition: GOOD Disposition: HOME/ ROUTINE Instructions: Amoxicillin/Clavulanate Potassium (By mouth), Osteomyelitis (DC) , Diabetic Foot Care (DC), Diabetic Foot Ulcers (DC), Hypertension (DC), Hypertension (GEN) Additional Instructions: Please follow up with your primary care provider in 3 days for labs to check kidney function. Please take the Augmentin 875 mg twice per day for 7 days and follow up with your previous addressograph operator or with the addressograph operator from [facility] ( Dr. Merlos) within 1 week for wound care. Please use the walker provided at discharge for ambulating. <Chidi iVdales - Last Filed: 06/20/17 09:31> Provider - Provider Date of Admission: 06/15/17 20:24 Attending physician: Isidoro Nuñez MD Hospital Course - Lab Results Lab Results: Micro Results 06/15/17 20:25 Foot - Left Gram Stain - Final 06/15/17 20:25 Foot - Left Wound Culture - Final Escherichia Coli Enterococcus Faecalis Patrizia Albicans Most Recent Lab Values WBC 7.4 K/uL (4.8-10.8) 06/19/17 08:24 RBC 4.30 Mil/uL (3.80-5.20) 06/19/17 08:24 Hgb 12.8 g/dL (11.0-16.0) 06/19/17 08:24 Hct 37.1 % (34.0-47.0) 06/19/17 08:24 MCV 86.4 fL (81.0-99.0) 06/19/17 08:24 MCH 29.7 pg (27.0-31.0) 06/19/17 08:24 MCHC 34.4 g/dL (33.0-37.0) 06/19/17 08:24 RDW 13.1 % (11.5-14.5) 06/19/17 08:24 Plt Count 233 K/uL (130-400) 06/19/17 08:24 MPV 9.0 fL (7.2-11.7) 06/19/17 08:24 Neut % (Auto) 59.6 % (50.0-75.0) 06/19/17 08:24 Lymph % (Auto) 31.9 % (20.0-40.0) 06/19/17 08:24 [place] % (Auto) 5.5 % (0.0-10.0) 06/19/17 08:24 Eos % (Auto) 2.0 % (0.0-4.0) 06/19/17 08:24 Baso % (Auto) 1.0 % (0.0-2.0) 06/19/17 08:24 Neut # 4.4 K/uL (1.8-7.0) 06/19/17 08:24 Lymph # 2.4 K/uL (1.0-4.3) 06/19/17 08:24 [place] # 0.4 K/uL (0.0-0.8) 06/19/17 08:24 Eos # 0.1 K/uL (0.0-0.7) 06/19/17 08:24 Baso # 0.1 K/uL (0.0-0.2) 06/19/17 08:24 Sodium 138 mmol/L (132-148) 06/19/17 08:24 Potassium 4.6 mmol/L (3.6-5.2) 06/19/17 08:24 Chloride 106 mmol/L (98-107) 06/19/17 08:24 Carbon Dioxide 22 mmol/L (22-30) 06/19/17 08:24 Anion Gap 15 (10-20) 06/19/17 08:24 BUN 27 mg/dL (7-17) H 06/19/17 08:24 Creatinine 2.1 MG/DL (0.7-1.2) H 06/19/17 08:24 Est GFR ( Amer) 30 06/19/17 08:24 Est GFR (Non-Af Amer) 25 06/19/17 08:24 POC Glucose (mg/dL) 191 mg/dL (65-110) H 06/19/17 16:40 Random Glucose 233 mg/dL (65-105) H 06/19/17 08:24 Hemoglobin A1c 10.6 % (4.2-6.5) H 06/15/17 19:04 Calcium 9.0 mg/dl (8.6-10.4) 06/19/17 08:24 Phosphorus 4.1 mg/dL (2.5-4.5) 06/19/17 08:24 Magnesium 1.9 mg/dL (1.6-2.3) 06/19/17 08:24 Total Bilirubin 0.4 mg/dL (0.2-1.3) 06/19/17 08:24 AST 24 U/L (14-36) 06/19/17 08:24 ALT 21 U/L (9-52) 06/19/17 08:24 Alkaline Phosphatase 90 U/L (38-126) 06/19/17 08:24 Total Protein 7.6 g/dL (6.3-8.3) 06/19/17 08:24 Albumin 3.9 g/dL (3.5-5.0) 06/19/17 08:24 Globulin 3.7 gm/dL (2.2-3.9) 06/19/17 08:24 Albumin/Globulin Ratio 1.0 (1.0-2.1) 06/19/17 08:24 Urine Color Yellow (YELLOW) 06/15/17 23:14 Urine Clarity Hazy (Clear) 06/15/17 23:14 Urine pH 6.0 (5.0-8.0) 06/15/17 23:14 Ur Specific [place] 1.015 (1.003-1.030) 06/15/17 23:14 Urine Protein 3+ mg/dL (NEGATIVE) H 06/15/17 23:14 Urine Glucose (UA) 2+ mg/dL (Normal) H 06/15/17 23:14 Urine Ketones Negative mg/dL (NEGATIVE) 06/15/17 23:14 Urine Blood Negative (NEGATIVE) 06/15/17 23:14 Urine Nitrate Negative (NEGATIVE) 06/15/17 23:14 Urine Bilirubin Negative (NEGATIVE) 06/15/17 23:14 Urine Urobilinogen Normal mg/dL (0.2-1.0) 06/15/17 23:14 Ur Leukocyte Esterase Neg Blossom/uL (Negative) 06/15/17 23:14 Urine WBC (Auto) 2 /hpf (0-5) 06/15/17 23:14 Urine RBC (Auto) 2 /hpf (0-3) 06/15/17 23:14 Ur Squamous Epith Cells 10 /hpf (0-5) H 06/15/17 23:14 Urine Bacteria Occ (<OCC) H 06/15/17 23:14 Serum Ketones Negative (NEGATIVE) 06/15/17 19:38 Attending/Attestation - Attestation I have personally seen and examined this patient.: Yes I have fully participated in the care of the patient.: Yes I have reviewed all pertinent clinical information, including history, physical exam and plan: Yes Notes (Text): 06/20/17 09:29 Patient was seen and examined at bedside on the day of discharge Patient appears comfortable I discussed with podiatry patient is clear for discharge on oral antibiotics Patient will be given a prescription for Augmentin for 7 days Patient's creatinine has increased to 2.1 today. We have advised the patient to follow-up with the BMP within 3-4 days with the PMD. Discussed the discharge plan with the patient and she verbalized understanding I agree with the discharge note by the resident.
[2017-06-19] MEDS ORDERED: Piperacill/Tazo 2.25gm in Dex 2.25 GM/50 ML BAG IVPB SCH (20:00)
== END 2017-06-19 18:00 | disposition home or self-care (01) | DRG 294 ==
LOC: C.ER 17:17 → C.9E 20:24 → C.3T 22:37
PROVIDERS: ADMIT Internal Medicine; ATTEND Internal Medicine
DX: E11.621 Type 2 diabetes mellitus with foot ulcer (principal); L97.529 Non-pressure chronic ulcer of other part of left foot with unspecified severity; E11.22 Type 2 diabetes mellitus with diabetic chronic kidney disease; E11.319 Type 2 diabetes mellitus with unspecified diabetic retinopathy without macular edema; E11.65 Type 2 diabetes mellitus with hyperglycemia; E03.9 Hypothyroidism, unspecified; E78.00 Pure hypercholesterolemia, unspecified; B96.20 Unspecified Escherichia coli [E. coli] as the cause of diseases classified elsewhere; I12.9 Hypertensive chronic kidney disease with stage 1 through stage 4 chronic kidney disease, or unspecified chronic kidney disease; H54.7 Unspecified visual loss; N18.9 Chronic kidney disease, unspecified; I25.2 Old myocardial infarction; Z79.4 Long term (current) use of insulin; Z79.82 Long term (current) use of aspirin; Z87.891 Personal history of nicotine dependence; Z91.19 Patient's noncompliance with other medical treatment and regimen